=== PATIENT | female | born 1985 | race Caucasian/White ===

== ENCOUNTER → 2018-01-09 08:32 | Outpatient (CLI) | payer OTHER, SELFPAY ==
--- NOTE | 2018-01-09 08:37 | ECHOD_ITS ---
Reason For Study: MVP Procedure This was a 2D Doppler, Color Flow transthoracic echocardiogram. Exam performed in department. Left Ventricle Normal LV size. Left ventricular systolic function is normal. The estimated ejection fraction is 55 %. No evidence for diastolic dysfunction. No regional wall motion abnormalities noted. Right Ventricle Normal RV size. Normal systolic function. Atria Normal left atrium. Normal right atrium. Mitral Valve Anterior leaflet diffuse mitral valve thickening. S/p mitral valve repair. Trivial mitral valve insufficiency. Tricuspid Valve Normal tricuspid valve. Mild (1+) tricuspid valve insufficiency. Pulmonary artery systolic pressure is 20 mmHg. Aortic Valve The aortic valve is not well visualized. Pulmonic Valve Normal pulmonic valve. Great Vessels Normal aortic root. The pulmonary artery is normal size. Normal inferior vena cava. Pericardium/Pleural No pericardial effusion. MMode/2D Measurements & Calculations LVIDd: 3.8 cm IVSd: 0.53 cm Ao root diam: 2.4 cm LVIDs: 2.7 cm LVPWd: 0.65 cm RVDd: 3.7 cm FS: 28.7 % LAV(MOD-bp): 22.0 ml LA A4 area: 11.7 cm2 RA A4 area: 13.8 cm2 LAV(MOD-bp) Indexed: 12.6 ml/m2 LAV(MOD-sp2): 16.4 ml LAV(MOD-sp4): 22.7 ml Time Measurements MV dec time: 0.29 sec Doppler Measurements & Calculations MV E max edenilson: 112.3 cm/sec Lat Peak E' Edenilson: 13.1 cm/sec Med Peak E' Edenilson: 9.6 cm/sec MV A max edenilson: 57.8 cm/sec E/E' lat: 8.6 E/E' med: 11.8 MV E/A: 1.9 Ao V2 max: 120.2 cm/sec LV V1 max: 102.4 cm/sec TR max edenilson: 210.7 cm/sec Ao max P.8 mmHg LV V1 max P.2 mmHg TR max P.8 mmHg Interpretation Summary Normal LV size. Left ventricular systolic function is normal. The estimated ejection fraction is 55 %. No evidence for diastolic dysfunction. S/p mitral valve repair Trivial mitral valve insufficiency. Ordering Physician: NGOC FOWLER Referring Physician: DOCTOR, OUT OF TOWN Performed By: Ayesha Paulino, ALTAFCS, RVT
--- NOTE | 2018-01-09 11:29 | CPS ---
Order was for pre and post only. Patient states she has had complete PFT's before but not done at [facility]. Attempted to call Ordering physician office to clarify order, just in case they wanted a complete study. Spoke to an RN that was not sure and sent my call to the person responsible for scheduling in their office which ended in a voicemail box.
[2018-01-09 12:49] LABS: Absolute Lymphocyte Count 2.67 X10^3/ul (0.83-4.51); Absolute Neutrophil Count 4.2 X10^3/uL (2.0-7.7); Basophil# 0.04 X10^3/uL; Basophil% 0.5 % (0-1); Eosinophil# 0.15 X10^3/uL; Eosinophils% 1.9 % (0-5); Hematocrit 50.4 % (37-47); Hemoglobin 16.6 g/dl (12.0-15.0); Lymphocyte # 2.67 X10^3/ul (4.0); Lymphocyte % 34.7 % (19-41); Mean Corp Hgb Conc 32.9 g/gl (32-36); Mean Corpuscular Hgb 30.4 pg (27.0-32.0); Mean Corpuscular Volume 92.3 fL (81-99); Mean Platelet Vol. 9.7 fl (6.2-12.0); Monocyte# 0.67 X10^3/uL; Monocyte% 8.7 % (0-10); Neutrophil # 4.16 X10^3/uL (2.7-7.7); Neutrophil % 54.1 % (47-70); Platelet Count 298 K/mm3 (150-450); RBC Distribution Width CV 13.2 % (11.6-14.6); RBC Distribution Width SD 44.1 fl (35.1-43.9); Red Blood Count 5.46 M/mm3 (4.2-5.4); White Blood Count 7.7 K/mm3 (4.4-11.0)
[2018-01-09 12:50] LABS: POSITIVE COUNT NO; POSITIVE DIFFERENTIAL NO; POSITIVE MORPHOLOGY NO
[2018-01-09 13:14] LABS: T4 Free Direct 1.03 ng/dL (0.76-1.46); Thyroid Stim Hormone (TSH) 0.88 uIU/mL (0.358-3.74)
--- NOTE | 2018-01-10 07:36 | SPIR ---
Spirometry PFT Testing Spirometry PFT Testing: INTRODUCTION: The patient is a 32-year-old female that presents for spirometry secondary to a diagnosis of mitral valve prolapse. Respiratory therapy reports good patient effort. Bronchodilators were used during testing. INTERPRETATION: Forced expiration spirometry demonstrates no evidence of a large airways obstructive ventilatory defect. There was no significant response to aerosolized bronchodilators, based upon strict ATS criteria. Spirograms are of good quality and plateau normally. The respiratory flow volume loop appears normal. IMPRESSION: Normal spirometry.
[2018-01-10 08:27] LABS: T3 Total - Triiodothyronine 1.04 ng/mL (0.6-1.81)
== END ==
DX: R53.82 Chronic fatigue, unspecified (principal); Z13.29 Encounter for screening for other suspected endocrine disorder; R01.1 Cardiac murmur, unspecified
CPT/HCPCS: 36415; 84439; 84443; 84480; 85025; 93306; 94060

== ENCOUNTER → 2018-02-04 15:07 | Outpatient (CLI) | payer OTHER, SELFPAY | DX: R05 Cough (principal) | CPT/HCPCS: 71046 ==

== ENCOUNTER → 2018-08-26 17:31 | Outpatient (CLI) | payer OTHER, SELFPAY ==
--- NOTE | 2018-08-26 17:40 | RAD_ITS ---
STUDY: X-RAY CHEST REASON FOR EXAM: Female, 33 years old. Cough, wheezing. Prior history of chest surgery. TECHNIQUE: PA and lateral chest COMPARISON: None. FINDINGS: Median sternotomy, 4 small fixation screws to the right and left external, possibly associated with the ribs. Stable. Valve annuloplasty. The lungs are somewhat symmetrically hyperlucent which may merely reflect good inspiratory effort. In the setting of asthma consider also air trapping. Correlate also for any history of smoking. Normal cardiomediastinal silhouette, zoe and pleural margins. No acute osseous or upper abdominal process. Scoliosis. RAD/Chest PA and Lateral IMPRESSION: No acute cardiopulmonary process. Electronically Signed: Jerrell Vincent MD at 15:48 EST Tel , Service support ,
== END ==
PROVIDERS: Referring Provider Family Medicine; Visit Provider Family Medicine
DX: R05 Cough (principal)
CPT/HCPCS: 71046

== ENCOUNTER → 2018-09-18 10:45 | Outpatient (REF) | payer OTHER, SELFPAY | LOC: CVS 10:45 | PROVIDERS: Family Provider Family Medicine; PCP Family Medicine; Referring Provider Family Medicine; Visit Provider Family Medicine | DX: R00.2 Palpitations (principal); Z86.79 Personal history of other diseases of the circulatory system | CPT/HCPCS: 93270 ==

== ENCOUNTER → 2018-12-03 | Outpatient (CLI) | payer OTHER, SELFPAY ==
[2018-12-03 10:25] VITALS: BMI 20.5
[2018-12-03 11:42] LABS: Absolute Lymphocyte Count 1.51 X10^3/ul (0.83-4.51); Absolute Neutrophil Count 3.7 X10^3/uL (2.0-7.7); Basophil# 0.03 X10^3/uL; Basophil% 0.5 % (0-1); Eosinophil# 0.03 X10^3/uL; Eosinophils% 0.5 % (0-5); Hematocrit 47.5 % (37-47); Hemoglobin 15.8 g/dl (12.0-15.0); Lymphocyte # 1.51 X10^3/ul (4.0); Mean Corp Hgb Conc 33.3 g/gl (32-36); Mean Corpuscular Hgb 29.4 pg (27.0-32.0); Mean Corpuscular Volume 88.5 fL (81-99); Mean Platelet Vol. 9.1 fl (6.2-12.0); Monocyte# 0.53 X10^3/uL; Monocyte% 9.1 % (0-10); Neutrophil % 63.7 % (47-70); POSITIVE COUNT NO; POSITIVE DIFFERENTIAL NO; POSITIVE MORPHOLOGY NO; Platelet Count 306 K/mm3 (150-450); RBC Distribution Width CV 12.9 % (11.6-14.6); Red Blood Count 5.37 M/mm3 (4.2-5.4); White Blood Count 5.8 K/mm3 (4.4-11.0)
[2018-12-08 14:06] LABS: Aspirgillus flavus Negative (Neg:<1:1); Aspirgillus fumigatus Negative (Neg:<1:1); Aspirgillus niger Negative (Neg:<1:1)
[2018-12-09 04:32] LABS: Alternaria tenuis <0.10 kU/L (Class 0); Ash, White <0.10 kU/L (Class 0); Aspergillus fumigatus <0.10 kU/L (Class 0); Bermuda Grass <0.10 kU/L (Class 0); Birch <0.10 kU/L (Class 0); Black Walnut <0.10 kU/L (Class 0); Cat Hair / Dander,Stand <0.10 kU/L (Class 0); Cedar, Mountain <0.10 kU/L (Class 0); Cladosporium herbarum <0.10 kU/L (Class 0); Cockroach, American <0.10 kU/L (Class 0); Cottonwood <0.10 kU/L (Class 0); D farinae Mite <0.10 kU/L (Class 0); D pteronyssinus <0.10 kU/L (Class 0); Dog Epithelia <0.10 kU/L (Class 0); Elm, American White <0.10 kU/L (Class 0); Immunoglobulin E 45 IU/mL (6-495); Maple/Box Elder <0.10 kU/L (Class 0); Mulberry, White <0.10 kU/L (Class 0); Oak, White <0.10 kU/L (Class 0); Pecan <0.10 kU/L (Class 0); Penicillium Notatum <0.10 kU/L (Class 0); Pigweed, Rough <0.10 kU/L (Class 0); Ragweed, Short/Common <0.10 kU/L (Class 0); Russian Thistle <0.10 kU/L (Class 0); Sheep Sorrel <0.10 kU/L (Class 0); Sycamore, American <0.10 kU/L (Class 0); Timothy Grass <0.10 kU/L (Class 0)
[2018-12-09 15:31] LABS: Mouse Urine <0.10 kU/L (Class 0)
[2018-12-09 16:07] LABS: Immunoglobulin E 51 IU/mL (6-495)
== END | disposition home or self-care (01) ==
LOC: LAB 11:23
PROVIDERS: Family Provider Family Medicine; PCP Family Medicine; Referring Provider Internal Medicine Critical Care Medicine; Visit Provider Internal Medicine Critical Care Medicine
DX: J45.909 Unspecified asthma, uncomplicated (principal)
CPT/HCPCS: 36415; 82785; 85025; 86003; 86606

== ENCOUNTER → 2018-12-12 | Outpatient (CLI) | payer OTHER, SELFPAY ==
[2018-12-03 10:25] VITALS: BMI 20.5
[2018-12-12 11:21] VITALS: PULSE 100; PULSE 104; PULSE 106; PULSE 74; PULSE 76; PULSE 94; PULSE 99; O2SAT 100; O2SAT 95; O2SAT 96; O2SAT 98; O2SAT 99
--- NOTE | 2018-12-13 08:08 | PCM.PSN.6M ---
PSN 6 Minute Walk Test - 6 Minute Walk Test 6 Minute Walk Test: 6 Minute Walk Test PSN:6-Minute Walk Test Start: 12/12/18 11:21 Freq: Status: Active Protocol: RESP.6MINW Document 12/12/18 11:21 DARNELL (Rec: 12/12/18 11:23 DARNELL [id number]) 6 Minute Walk Test Date Performed 12/12/18 Time Performed 11:00 Height 5 ft 10 in Weight: 140 lb Weight in Pounds 140.[address]: Beck Beyer Assistive device used: None Pre-test Oxygen Delivery Method Room Air Pulse Ox (%) 99 Pulse Rate (60-100 beats/min) 74 Dyspnea Carol Scale (0-10) 0 Exertion Carol Scale (6-20) 6 1st minute Oxygen Delivery Method Room Air Pulse Ox (%) 99 Pulse Rate (60-100 beats/min) 94 2nd minute Oxygen Delivery Method Room Air Pulse Ox (%) 98 Pulse Rate (60-100 beats/min) 100 3rd minute Oxygen Delivery Method Room Air Pulse Ox (%) 96 Pulse Rate (60-100 beats/min) 99 4th minute Oxygen Delivery Method Room Air Pulse Ox (%) 95 Pulse Rate (60-100 beats/min) 99 5th minute Oxygen Delivery Method Room Air Pulse Ox (%) 98 Pulse Rate (60-100 beats/min) 104 H 6th minute Oxygen Delivery Method Room Air Pulse Ox (%) 100 Pulse Rate (60-100 beats/min) 106 H Dyspnea Carol Scale (0-10) 3 Exertion Carol Scale (6-20) 13 Post-test Oxygen Delivery Method Room Air Pulse Ox (%) 99 Pulse Rate (60-100 beats/min) 76 Full Laps Walked 23 Partial Lap, Number of Tiles Walked 22 Total Distance Walked (ft) 1379 - Interpretation Interpretation: The patient ambulated 1379 feet over the course of 6 minutes beginning on room air without assistive devices or breaks. Pretesting oxygen saturation was noted to be 99% on room air. With ambulation, the dominique oxygen saturation was 95%. There was no significant exertional oxygen desaturation. - Recommendations Recommendations: There is no indication for the use of supplemental oxygen at this time.
== END | disposition home or self-care (01) ==
LOC: PSN 10:47
PROVIDERS: Family Provider Family Medicine; PCP Family Medicine; Referring Provider Internal Medicine Critical Care Medicine; Visit Provider Internal Medicine Critical Care Medicine
DX: D75.1 Secondary polycythemia (principal); J45.909 Unspecified asthma, uncomplicated
CPT/HCPCS: 94618

== ENCOUNTER → 2018-12-19 | Outpatient (CLI) | payer OTHER, SELFPAY ==
[2018-12-03 10:25] VITALS: BMI 20.5
--- NOTE | 2018-12-19 10:36 | PFTCOMP_ITS ---
COMPLETE PULMONARY FUNCTION TEST INTERPRETATION Brief HPI: Patient is a 33 year old female, currently under the care of Dr. Beyer, who presents to [facility] for complete pulmonary function tests secondary to diagnosis of asthma. Respiratory therapist reports good effort and reproducible results. Interpretation: Forced expiration spirometry shows no large airways obstructive ventilatory defect with an FEV1 of 77% predicted. There is no significant bronchodilator response by strict ATS criteria. Spirograms are of good quality and plateau normally. The respiratory flow volume loop shows a normal pattern. Lung volumes by body plethysmography show a reduced total lung capacity at 5.13 L, 81% predicted. All other lung volumes are reduced symmetrically. Diffusion capacity by carbon monoxide is normal at 110% predicted. The airway resistance is normal. Compared to previous pulmonary function tests from 01/09/2018, there is been no significant change in spirometry. Impression: Mild restrictive ventilatory defect with preserved diffusion capacity, in a pattern consistent with musculoskeletal limitation.
== END | disposition home or self-care (01) ==
LOC: PSN 07:48
PROVIDERS: Family Provider Family Medicine; PCP Family Medicine; Referring Provider Internal Medicine Critical Care Medicine; Visit Provider Internal Medicine Critical Care Medicine
DX: J45.909 Unspecified asthma, uncomplicated (principal)
CPT/HCPCS: 94060; 94726; 94729

== ENCOUNTER 2019-01-20 19:33 | Emergency (ER) | payer OTHER, SELFPAY ==
[2018-12-03 10:25] VITALS: BMI 20.5
[2019-01-20 19:35] VITALS: BP 121/74; PULSE 90; RESP 18; TEMP 36.6; O2SAT 100; BMI 19.8
--- NOTE | 2019-01-20 20:25 | RAD_ITS ---
STUDY: X-RAY - LEFT ANKLE REASON FOR EXAM: Female, 34 years old. Fall TECHNIQUE: 3 view(s) of the ankle. COMPARISON: None. FINDINGS: Prominent soft tissue swelling is present over the lateral malleolus. There is a small osseous body at the distal aspect of the fibula. The remaining bones are unremarkable. Chronic appearing osseous body is present at the medial tibiotalar joint, consistent with remote trauma or degenerative change. There are no radiodense foreign bodies. RAD/Ankle min 3 Views IMPRESSION: Prominent soft tissue swelling over the lateral malleolus, with small osseous body just distal to the fibula, which may represent avulsion. Consider MRI for further assessment. Electronically Signed: David Shannon, at 20:44 EDT Tel , Service support ,
--- NOTE | 2019-01-20 21:16 | ED.DEP ---
ED Disposition - Plan for ED Patient: Instructions: ANKLE FRACTURE (Distal Fibula), closed Referrals: Jerrell Mosquera MD [Primary Care Provider] - Rickie Ruggiero DO [STAFF PHYSICIAN] -
--- NOTE | 2019-01-20 21:19 | ED.VISSUMM ---
- ER Visit Summary Date of Service: 01/20/19 Chief Complaint: Left ankle injury History of Present Illness: The patient is a 34 F presenting with left ankle injury. Patient states she was at the movies. She was walking down the steps. She missed a step and fell. She was able to ambulate after the fall. She did not hit her head or lose consciousness. She complains of left ankle pain. She denies other injuries. Physical Examination: Vitals are stable. Patient is afebrile. Alert no acute distress. HEENT exam is unremarkable. Neck is nontender Lungs are clear and equal bilaterally. Heart is regular rate and rhythm. Extremities left lateral ankle swelling and tenderness. No proximal fibula tenderness. No fifth metatarsal tenderness. No Achilles tendon tenderness. Skin is warm and dry. No focal neurologic deficit. Remainder of exam is unremarkable. Emergency Department Course and Treatment: Left ankle x-ray shows prominent soft tissue swelling over the lateral malleolus, with small osseous body just distal to the fibula, which may represent avulsion. Patient is advised to ice and elevate. She is given a boot orthosis and crutches. Advised to follow-up with orthopedics. Advised return to the ED for worsening complaints. Disposition: Discharge home Impression: Left ankle injury suspect avulsion fracture This note was generated with Divshot dictation software. It may contain incorrect words, spelling, and punctuation that were not noted in review of the chart prior to signing ED Disposition - Plan for ED Patient: Instructions: ANKLE FRACTURE (Distal Fibula), closed Referrals: Rickie Ruggiero DO [STAFF PHYSICIAN] - Jerrell Mosquera MD [Primary Care Provider] -
[2019-01-20 21:48] VITALS: RESP 14
== END 2019-01-20 21:48 | disposition home or self-care (01) ==
LOC: ED 20:41
PROVIDERS: Emergency Provider Emergency Medicine; Family Provider Family Medicine; PCP Family Medicine
DX: S99.912A Unspecified injury of left ankle, initial encounter (principal); W10.9XXA Fall (on) (from) unspecified stairs and steps, initial encounter; Y93.01 Activity, walking, marching and hiking; Y92.9 Unspecified place or not applicable; J45.909 Unspecified asthma, uncomplicated
CPT/HCPCS: 73610; 99284

== ENCOUNTER → 2019-03-04 06:42 | Outpatient (CLI) | payer OTHER, SELFPAY ==
--- NOTE | 2019-03-05 13:38 | BRONCHALL ---
Bronchoprovocation Challenge - Bronchoprovocation Challenge Bronchoprovocation Challenge: INTRODUCTION: The patient is a 34-year-old female that presents for a methacholine challenge secondary to a diagnosis of asthma. The respiratory therapist reported good patient effort and reproducible results. INTERPRETATION: Baseline spirometry did not show any large airways obstructive ventilatory defect and preserved airflow throughout. The patient was given progressively increasing doses of methacholine in a standardized fashion. At no point during testing did the patient's FEV1 drop to the 20% threshold needed to define bronchial hyperresponsiveness. IMPRESSION: Negative methacholine challenge.
== END ==
PROVIDERS: Family Provider Family Medicine; PCP Family Medicine; Referring Provider Internal Medicine Critical Care Medicine; Visit Provider Internal Medicine Critical Care Medicine
DX: J45.909 Unspecified asthma, uncomplicated (principal)
CPT/HCPCS: 94070; 95070; J3490; J7674

== ENCOUNTER → 2019-03-09 15:29 | Outpatient (CLI) | payer OTHER, SELFPAY ==
--- NOTE | 2019-03-09 15:31 | RAD_ITS ---
STUDY: X-RAY - LEFT ANKLE REASON FOR EXAM: Female, 34 years old. Injury. Pain. TECHNIQUE: 3 view(s) of the ankle. COMPARISON: 12/21/2018 FINDINGS: There is a stable subcentimeter linear osseous fragment adjacent to the distal fibula which may represent an avulsion fracture. There is mild adjacent soft tissue swelling noted which is decreased when compared with the prior exam. There is a stable well-corticated osseous density adjacent to the medial malleolus, consistent with prior trauma. There is no acute fracture or dislocation. RAD/Ankle min 3 Views IMPRESSION: Stable subcentimeter linear osseous fragment adjacent to the distal fibula which may represent an avulsion fracture. Mild adjacent soft tissue swelling noted which is decreased when compared with the prior exam. Well-corticated osseous density adjacent to the medial malleolus, consistent with prior trauma. No acute fracture or dislocation. Electronically Signed: Percy Lambert, at 22:23 EDT Tel , Service support ,
== END ==
PROVIDERS: Family Provider Family Medicine; PCP Family Medicine; Referring Provider Orthopaedic Surgery; Visit Provider Orthopaedic Surgery
DX: S82.62XA Displaced fracture of lateral malleolus of left fibula, initial encounter for closed fracture (principal)
CPT/HCPCS: 73610

== ENCOUNTER → 2019-04-06 12:51 | Outpatient (CLI) | payer OTHER, SELFPAY ==
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
--- NOTE | 2019-04-06 13:00 | RAD_ITS ---
STUDY: SWALLOWING STUDY REASON FOR EXAM: Female, 34 years old. Dysphagia. TECHNIQUE: The examination was performed with Speech Pathology in attendance. Under fluoroscopic observation, the patient ingested thin barium, thick barium, barium pudding, and barium coated cracker. FLUOROSCOPY TIME: 2:00 minutes/seconds. 1740 fluoroscopic images were obtained. RADIOLOGIST INVOLVEMENT: Radiologist was present and providing direct supervision. COMPARISON: None. FINDINGS: The following was observed during swallowing of the various mixtures of barium: Thin Barium: There was no evidence of aspiration or laryngeal penetration. Barium Pudding: There was no evidence of aspiration or laryngeal penetration. Barium Coated Cracker: There was no evidence of aspiration or laryngeal penetration. RAD/Swallowing Function w/Video IMPRESSION: Normal tailored barium swallow study. No evidence of increased risk for aspiration. The swallow study findings were discussed with the patient by the speech pathologist at the conclusion of the examination. Please see speech pathology report for more information and recommendations. Electronically Signed: Rio De La Rosa, at 13:44 EDT , Service support ,
== END ==
PROVIDERS: Family Provider Family Medicine; PCP Family Medicine; Referring Provider Nurse Practitioner Acute Care; Visit Provider Nurse Practitioner Acute Care
DX: R13.10 Dysphagia, unspecified (principal)
CPT/HCPCS: 74230; 92611

== ENCOUNTER 2019-06-04 15:00 | Outpatient (RCR) | payer OTHER, SELFPAY ==
--- NOTE | 2019-02-17 11:55 | HP.PTEVAL_ITS ---
Patient's Visit Information BEVERLY HUA is a 34 year old F referred to Physical Therapy by Rickie Ruggiero DO with a diagnosis of L ankle fx. Date of Evaluation: 02/17/19 Physical Therapist: Ziyad Dwyer DPT - Visit Plan Frequency: 2x /Week Duration: 4-6 Weeks Plan: Start with ROM and strengthening of L ankle. Progress WBing tolerance progressing to FWB in boot in 2 weeks in order to return to work without limitations. Progress proprioception exercises in 2 weeks. - Subjective Findings: Pt. is here today for her initial evaluation with diagnosis of L ankle fracture. Pt. reports falls down a few steps a the movie theater. January 20, 2019. Pt. is now 4 weeks out of initial injury. Pt. is allowed is now PWB in boot. Pt. is allowed to progress to FWBing in boot in following 2 weeks. Pt. reports no pain with walking currently. Pt. works at a [employer] and plans to return to work on Mar 02. Pt. reports being compliant with WBing at home. She has been working on ROM at home. Pt is hopeful to increase her tolerance to walking and get back to all recreational and work related activities without limitations. - Pain L ankle Pain Intensity (Out of 10): 1 Pain Intensity Range: 0, 2 - Objective POSTURE: Pt. has good posture in stance. She is able to stand with proper partial WBing. Pt. reports no pain in stance. PALPATION: Pt. has tenderness at distal fibular head. pt. has slight soreness at ATFL. NEURO: normal throughout. ROM: DF- 8deg, PF 48deg, INV 6deg, EVR 4deg. PROM- DF 10deg, PF 50deg, INV 8deg, EVR 8deg. MMT: DF 4/5, PF 4+/5, INV 4/5 increase NW, EVR 4/5 increase NW. GAIT: PT. ambulates with good gait pattern with partial WBing and use of crutches. - Goals Goal 1:: Pt. to be I with HEP. Goal Time Frame: 4-6 Weeks Goal 2:: Pt. to have increased ROM of L ankle symmetrical to R side. Goal Time Frame: 4-6 Weeks Goal 3:: Pt. to have increased MMT of musculature at L ankle by 1/2 grade throughout. Goal Time Frame: 4-6 Weeks Goal 4:: Pt. to ambulate with FWB without use of AD in two weeks. Goal Time Frame: 4-6 Weeks Goal 5:: Pt. return to work without increase in symptoms. Goal Time Frame: 4-6 Weeks - Rehabilitation Potential Physical Therapy Diagnosis: Pt. has signs and symptoms consistent with L ankle Fx and subsequent hypomobility, weakness, increased pain, and difficulty with walking. Rehabilitation Potential: Excellent - Anticipated Interventions Patient/Client Instruction: Educate patient on: Condition, Plan of Care, Risk Factors, Benefits of Fitness Program For the Purpose of:: To foster healthy habits, To improve decision making, To facilitate caregiver knowledge, To improve self management, To prevent re- injury, To improve ability to perform tasks related to life management, To improve tolerance to ADL's Therapeutic Exercise to Include: Strength training, Power training, Balance training, Agility training, Postural training, Flexibilty training, Gait and locomotor training, Passive ROM, Active ROM For the Purpose of:: To decrease pain, To decrease swelling/inflammation, To increase ROM, To improve nutrient delivery to tissue, To increase oxygenation perfusion, To improve muscle performance and motor function, To improve ability to perform ADL's, To improve ability of physical actions for home/community/work/leisure, To improve gait and locomotor functions, To improve health of tissue, To increase flexibility/ROM, To improve endurance, To improve balance IF ES: Yes Cryotherapy (ice pack, ice massage): Yes Vasopneumatic device: Yes For the Purpose of:: To decrease pain, To decrease swelling/inflammation, To increase ROM Thank you for the opportunity to evaluate your patient. For Medicare and Medicare HMO plans, please review the plan of care and approve it. It will need to be FAXED BACK to us at [phone] for Medicare purposes. For Medicare only, by signing this I certify the plan of care. Please let me know if there are questions or concerns regarding this plan of care. Physician Signature: Date:
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
== END 2019-06-04 19:00 | disposition home or self-care (01) ==
LOC: SP 15:00
PROVIDERS: Family Provider Family Medicine; PCP Family Medicine; Referring Provider Internal Medicine Critical Care Medicine; Visit Provider Orthopaedic Surgery
DX: S82.62XD Displaced fracture of lateral malleolus of left fibula, subsequent encounter for closed fracture with routine healing (principal); J38.3 Other diseases of vocal cords
CPT/HCPCS: 92507; 92523; 92610; 97110; 97161

== ENCOUNTER → 2019-08-27 16:17 | Outpatient (CLI) | payer OTHER, SELFPAY ==
[2019-08-27 17:07] LABS: ALB/GLOB Ratio 1.2 RATIO (0.9-2.4); AST(SGOT) 15 U/L (15-37); Alanine Aminotransfer ALT/SGPT 18 U/L (13-56); Albumin, Serum 4.2 g/dL (3.2-5.0); Alkaline Phosphatase 71 U/L (45-117); Anion Gap 5 (5-15); BUN 12 mg/dL (7-18); BUN/Creat Ratio 16.1 RATIO (10-20); Chloride 111 mmol/L (98-107); Creatinine, Serum 0.75 mg/dL (0.55-1.02); EST Glomerular Filtration Rate 94 mL/min (>60); Est Glom Filt Rate - Afr Amer 114 mL/min (>60); Globulin 3.4 g/dL (2.2-4.2); Glucose 90 mg/dL (74-106); Potassium 4.7 mmol/L (3.5-5.1); Protein, Total 7.6 g/dL (6.4-8.2); Sodium Level 143 mmol/L (136-145)
[2019-08-27 17:08] LABS: Absolute Lymphocyte Count 2.01 X10^3/uL (0.83-4.51); Absolute Neutrophil Count 5.1 X10^3/uL (2.0-7.7); Basophil# 0.06 X10^3/uL; Basophil% 0.7 % (0-1); Eosinophil# 0.12 X10^3/uL; Eosinophils% 1.5 % (0-5); Hemoglobin 14.9 g/dL (12.0-15.0); Lymphocyte # 2.01 X10^3/ul (4.0); Lymphocyte % 24.9 % (19-41); Mean Corp Hgb Conc 32.4 g/dL (32-36); Mean Corpuscular Hgb 29.5 pg (27.0-32.0); Mean Corpuscular Volume 91.1 fL (81-99); Mean Platelet Vol. 9.6 fl (6.2-12.0); Monocyte# 0.72 X10^3/uL; Monocyte% 8.9 % (0-10); NRBC Flagged by Analyzer 0 % (0-5); Neutrophil # 5.13 X10^3/uL (2.7-7.7); Neutrophil % 63.8 % (47-70); Platelet Count 307 K/mm3 (150-450); RBC Distribution Width CV 12.9 % (11.6-14.6); RBC Distribution Width SD 42.4 fl (35.1-43.9); Red Blood Count 5.05 M/mm3 (4.2-5.4); White Blood Count 8.1 K/mm3 (4.4-11.0)
== END ==
PROVIDERS: PCP Internal Medicine; Referring Provider Internal Medicine; Visit Provider Internal Medicine
DX: K21.9 Gastro-esophageal reflux disease without esophagitis (principal)
CPT/HCPCS: 36415; 80053; 85025

== ENCOUNTER → 2019-08-31 17:46 | Outpatient (CLI) | payer OTHER, SELFPAY ==
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
== END ==
PROVIDERS: PCP Internal Medicine; Visit Provider Internal Medicine
DX: M25.572 Pain in left ankle and joints of left foot (principal)
CPT/HCPCS: 73600

== ENCOUNTER → 2019-09-18 10:51 | Outpatient (CLI) | payer OTHER, SELFPAY ==
--- NOTE | 2019-09-18 10:53 | ECHOD_ITS ---
Reason For Study: VALVE REPLACEMENT EVAL Procedure This was a 2D Doppler, Color Flow transthoracic echocardiogram. Exam performed in department. Left Ventricle Normal size and thickness. The estimated ejection fraction is 55 %. Septal motion consistent with IVCD. No regional wall motion abnormalities noted. Right Ventricle Normal size and thickness. Normal systolic function. Atria Normal left atrium. Normal right atrium. Normal atrial septum. Mitral Valve Anterior leaflet diffuse mitral valve thickening. Trivial mitral valve insufficiency. Status post mitral valve repair. Tricuspid Valve Normal tricuspid valve. Trivial tricuspid valve insufficiency. Right ventricular systolic pressure estimated to be 25 mmHg. Aortic Valve Normal aortic valve. Trisinus/trileaflet aortic valve. Pulmonic Valve The pulmonic valve is not well visualized. Great Vessels Normal aortic root. Normal arch. Normal inferior vena cava. Inferior vena cava collapse with sniff. Pericardium/Pleural No pericardial effusion. MMode/2D Measurements & Calculations LVIDd: 3.6 cm IVSd: 0.77 cm Ao root diam: 2.7 cm LVIDs: 2.4 cm LVPWd: 0.69 cm RVDd: 2.8 cm FS: 32.7 % LAV(MOD-bp): 18.6 ml LA A4 area: 11.0 cm2 LA dimension(2D): 2.7 cm LAV(MOD-bp) Indexed: 10.5 ml/m2 LAV(MOD-sp2): 16.0 ml LAV(MOD-sp4): 21.2 ml RA A4 area: 13.8 cm2 Time Measurements MV dec time: 0.21 sec Doppler Measurements & Calculations MV E max edenilson: 169.0 cm/sec Lat Peak E' Edenilson: 11.1 cm/sec Med Peak E' Edenilson: 10.8 cm/sec MV A max edenilson: 77.2 cm/sec E/E' lat: 15.2 E/E' med: 15.7 MV E/A: 2.2 MV V2 max: 156.6 cm/sec MV P1/2t max edenilson: 153.7 cm/sec Ao V2 max: 114.7 cm/sec MV max P.8 mmHg MV P1/2t: 82.2 msec Ao max P.3 mmHg MV V2 mean: 79.0 cm/sec MV dec slope: 547.9 cm/sec2 Ao V2 mean: 83.5 cm/sec MV mean P.0 mmHg Ao mean P.0 mmHg MV V2 VTI: 35.5 cm MVA(P1/2t): 2.7 cm2 Ao V2 VTI: 25.5 cm LV V1 max: 81.3 cm/sec PA V2 max: 86.5 cm/sec TR max edenilson: 215.1 cm/sec LV V1 max P.6 mmHg TR max P.5 mmHg Interpretation Summary The estimated ejection fraction is 55 %. Status post mitral valve repair. Trivial mitral valve insufficiency. Trivial tricuspid valve insufficiency. Right ventricular systolic pressure estimated to be 25 mmHg. Compared to echo report dated 01/09/2018, no appreciable chages noted. Ordering Physician: Ravi Medellin Referring Physician: Ezra Arenas Performed By: Montserrat Adams RDCS, RVT
== END ==
PROVIDERS: PCP Internal Medicine; Referring Provider Internal Medicine Cardiovascular Disease; Visit Provider Internal Medicine Cardiovascular Disease
DX: Z98.890 Other specified postprocedural states (principal)
CPT/HCPCS: 93306

== ENCOUNTER → 2020-03-23 15:03 | Outpatient (CLI) | payer OTHER, SELFPAY ==
[2020-03-23 14:12] VITALS: BMI 20.2
[2020-03-23 15:47] LABS: Erythrocyte Sedimentation Rate 3 mm/hr (0-20)
[2020-03-23 16:14] LABS: CRP < 2.90 mg/L (0.0-3.0); Rheumatoid Factor < 10.0 IU/mL (<15)
[2020-03-25 15:17] LABS: ANTINUCLEAR ANTIBODIES DIRECT Negative (Negative)
[2020-03-26 03:07] LABS: Cytoplasmic Ab (C-ANCA) <1:20 titer (Neg:<1:20)
[2020-03-26 06:16] LABS: CCP IgG Antibodies 4 units (0-19); Perinuclear Ab (P-ANCA) <1:20 titer (Neg:<1:20)
== END ==
PROVIDERS: PCP Internal Medicine; Referring Provider Nurse Practitioner Acute Care; Visit Provider Nurse Practitioner Acute Care
DX: M35.9 Systemic involvement of connective tissue, unspecified (principal)
CPT/HCPCS: 36415; 85652; 86038; 86140; 86200; 86225; 86235; 86256; 86431

== ENCOUNTER → 2020-04-07 17:27 | Outpatient (CLI) | payer OTHER, SELFPAY ==
[2020-03-29 15:02] VITALS: BMI 18.3
== END ==
PROVIDERS: PCP Internal Medicine; Referring Provider Internal Medicine Cardiovascular Disease; Visit Provider Internal Medicine Cardiovascular Disease
DX: R06.02 Shortness of breath (principal); Z98.890 Other specified postprocedural states
CPT/HCPCS: 87635; U0003

== ENCOUNTER 2020-04-12 09:47 | Outpatient (CLI) | payer OTHER, SELFPAY ==
[2020-03-29 15:02] VITALS: BMI 18.3
--- NOTE | 2020-04-12 09:47 | ECHOTEE_ITS ---
Reason For Study: DYSPNEA/SOB Medication SATHYA probe 6VT-D (SN [id number]) passed with minimal difficulty. No complications were noted. Cetacaine Topical Burtrum given X3 orally. Versed 2 mg given slow IVP. Fentanyl 100 mcg given slow IVP. Performed a rapid injection of agitated mix of 9 cc saline and 1cc air to assess for atrial septal defect. Left Ventricle Normal LV size. Left ventricular systolic function is normal. The estimated ejection fraction is 60 %. No regional wall motion abnormalities noted. Right Ventricle Normal RV size. Normal systolic function. Atria No doppler evidence for ASD. Bubble contrast study negative for right to left interatrial shunt. Normal left atrium. There is no sponatenous contrast in the left atrium. No thrombus is detected in the left atrial appendage. Normal right atrium. There is no sponatenous contrast in the right atrium. No RA/appendage thrombus identified. Mitral Valve There is no mitral annular calcification. Mild diffuse mitral valve thickening. An annuloplasty ring is noted in the mitral position. Mild to moderate (1-2) transvalvular insufficiency of the mitral valve. Tricuspid Valve Normal tricuspid valve. Trivial tricuspid valve insufficiency. Aortic Valve Trisinus/trileaflet aortic valve. Normal aortic valve. Pulmonic Valve Normal pulmonic valve. Vessels Normal-appearing thoracic aorta. Pericardium No pericardial effusion. Interpretation Summary Left ventricular systolic function is normal. The estimated ejection fraction is 60 %. There is no sponatenous contrast in the left atrium. No thrombus is detected in the left atrial appendage. An annuloplasty ring is noted in the mitral position. Mild diffuse mitral valve thickening. Mild to moderate (1-2) transvalvular insufficiency of the mitral valve. Trivial tricuspid valve insufficiency. Bubble contrast study negative for right to left interatrial shunt. Ordering Physician: Miri Galdamez/Gene Terrell Referring Physician: EFEWONGBE OLEGHE Performed By: Lexi Lane RDCS
== END 2020-04-12 12:30 | disposition home or self-care (01) ==
LOC: CVS 09:47
PROVIDERS: PCP Internal Medicine; Referring Provider Physician Assistant Medical; Visit Provider Physician Assistant Medical
DX: R06.00 Dyspnea, unspecified (principal); R06.02 Shortness of breath; Z98.890 Other specified postprocedural states
CPT/HCPCS: 93312; 93320; 93325; J7040; A4216

== ENCOUNTER 2020-04-14 09:55 | Emergency (ER) | payer OTHER, SELFPAY ==
[2020-03-29 15:02] VITALS: BMI 18.3
[2020-04-14] VITALS (9 sets, daily range): BP systolic 90–111; BP diastolic 62–82; PULSE 74–132; RESP 13–20; TEMP 36.6; O2SAT 20–100; BMI 18.3
--- NOTE | 2020-04-14 10:22 | EKG12_ITS ---
Test Reason : PALPS Blood Pressure : / mmHG Vent. Rate : 130 BPM Atrial Rate : 130 BPM P-R Int : 080 ms QRS Dur : 070 ms QT Int : 320 ms P-R-T Axes : 000 081 042 degrees QTc Int : 470 ms Atrial Flutter Low voltage QRS (Limb Leads) Confirmed by IOANA BOWLING, ALEXANDRIA ([id number]), newspaper managing editor JEFE ZEPEDA ([id number]) on 04/18/2020 12:40:46 PM Referred By: EMELY Confirmed By:ALEXANDRIA TRIPLETT MD
--- NOTE | 2020-04-14 10:23 | ED.VIS.CHEST ---
History of Present Illness Chief Complaint: Palpitations Informant: Patient Onset: Today Timing: Intermittent Quality: Sharp Location: Left Chest Narrative: Patient is a 35-year-old female with complex medical history including atrial fib status post cardioversion in 2014, atrial flutter status post ablation 2016, mitral valve repair in 2009 with PFO repair presenting with chest pain and sensation of her heart racing. Patient states she has been feeling palpitations in her chest for the past 24 hours intermittently. She states they are painful and she will get pain in her left chest when this happens. Her heart rates been as high as 150. She denies any significant shortness of breath but does have some chronic intermittent shortness of breath. Patient did have a SATHYA 2 days ago for routine monitoring ordered by her extension clerk. It was normal with an EF of 60%. Patient notes this morning when she was walking to her car she felt little lightheaded and her vision did get fuzzy for couple seconds. She denies any other associated symptoms. No other complaints at this time. Prior Similar Symptoms: Yes, - - A fib/flutter Past Medical History - Allergies and Home Meds Allergies/Adverse Reactions: Allergies hydrocodone [From Vicodin] Adverse Reaction (Intermediate, Verified 04/14/20 09:59) nausea intolerance caterpillars Adverse Reaction (Unknown, Uncoded 04/14/20 09:59) unknown Primary Care Physician: Ezra Arenas MD [Primary Care Provider] - Gene Terrell MD [STAFF PHYSICIAN] - 1 Week Past Medical History: - - Startup fib/flutter status post ablation Surgical History: - - Mitral Valve repair, cardiac ablation Smoking Status: Never smoker Review of Systems General: Denies: Chills, Fever, Sweats Eyes: Denies: Visual changes - bilaterally, Diplopia ENT: Denies: Rhinorrhea, Sore throat Cardiovascular: Reports: Chest pain, Palpitations, Heart racing Respiratory: Denies: Dyspnea, Cough, Dyspnea on exertion Gastrointestinal: Denies: Abdominal pain, Nausea, Vomiting, Diarrhea, Melena, Hematochezia Genitourinary: Denies: Dysuria, Hematuria, Frequency Musculoskeletal: Denies: Back pain, Extremity Pain Skin: Denies: Rash, Wounds Neurological: Denies: Headache, Weakness, Numbness Physical Exam Vital Signs/Narrative: Vital Signs Temp Pulse Resp BP Pulse Ox 04/14/20 09:55 97.9 F 132 H 18 111/77 99 Inital Vital Signs reviewed: Yes General: Well nourished, Well developed, No Acute Distress Head: Normocephalic, Atraumatic Eyes: Perrl, EOMI ENT: Moist mucous membranes, No rhinorrhea Neck: Supple, Nontender, No JVD Cardiovascular: Regular rhythm, No murmurs, Tachycardia Respiratory: No distress, CTA bilaterally, Chest nontender, - - no crackels. Negative for: Diminished, Decreased Air Movement Abdomen: Soft, Nontender, Nondistended, Normal bowel sounds Back: Nontender, Normal Inspection Extremities: Nontender, No edema Skin: Normal color, No rash Neurological: Alert, Oriented x3, Cranial nerves II-XII grossly intact, Normal Strength, Normal Sensation Psychological: Normal affect, Normal Mood Diagnostic/Tx/Re-eval Chest X-Ray - ED: 1 View, Read by ED Physician, Read by Radiologist, No Acute Disease Clinical Impression(s) from Imaging Studies Chest X-Ray 04/14/20 11:05 IMPRESSION: Hyperinflation. The lungs are clear. Electronically Signed: Rio Rj, at 11:21 EDT , Service support , Laboratory Data 04/14/20 04/14/20 04/14/20 10:35 10:35 10:35 WBC 6.3 RBC 5.50 H Hgb 16.1 H Hct 50.2 H MCV 91.3 MCH 29.3 MCHC 32.1 RDW Std Deviation 43.7 RDW Coeff of [place] 12.9 Plt Count 336 MPV 9.2 Immature Gran % (Auto) 0.200 Neut % (Auto) 61.5 Lymph % (Auto) 28.7 [place] % (Auto) 8.2 Eos % (Auto) 0.6 Baso % (Auto) 0.8 Absolute Neuts (auto) 3.9 Absolute Lymphs (auto) 1.82 Nucleated RBC % 0 D-Dimer Quant (PE/DVT) <= 0.27 Sodium 143 Potassium 3.7 Chloride 111 H Carbon Dioxide 26.0 Anion Gap 6 BUN 12 Creatinine 0.88 Estim Creat Clear Calc 84.34 Est GFR (MDRD) Af Amer 94 Est GFR (MDRD) Non-Af 77 BUN/Creatinine Ratio 13.6 Glucose 90 Calcium 9.4 Magnesium 2.3 Troponin I < 0.015 B-Natriuretic Peptide TSH 0.99 04/14/20 10:35 WBC RBC Hgb Hct MCV MCH MCHC RDW Std Deviation RDW Coeff of [place] Plt Count MPV Immature Gran % (Auto) Neut % (Auto) Lymph % (Auto) [place] % (Auto) Eos % (Auto) Baso % (Auto) Absolute Neuts (auto) Absolute Lymphs (auto) Nucleated RBC % D-Dimer Quant (PE/DVT) Sodium Potassium Chloride Carbon Dioxide Anion Gap BUN Creatinine Estim Creat Clear Calc Est GFR (MDRD) Af Amer Est GFR (MDRD) Non-Af BUN/Creatinine Ratio Glucose Calcium Magnesium Troponin I B-Natriuretic Peptide 311.3 H TSH - Rhythm Strip Rhythm Strip: Sinus Tach Rate: 130 Ectopy: None - EKG Initial EKG Interpretation: Sinus Tachycardia, - - Cardiac rate of 130 with a shortened GA interval of [address] segments Interpretation includes slow SVT versus sinus tach versus atrial flutter Follow-up EKG Interpretation: Sinus Rhythm, - - Sinus rhythm rate of 75 normal axis normal intervals. Normal ST segments - Medical Decision Making Patient is evaluated for palpitations it started suddenly around 11:00 last night. Patient had a SATHYA 2 days ago for evaluation of mitral valve replacement that was centrally normal and showed no thrombus. She is not on any anticoagulation. Patient is given IV fluids with no improvement of her tachycardia but her a.m. is otherwise benign. Troponin is negative. She does have a mildly elevated proBNP but clinically does not appear to be fluid overloaded. Given her complex cardiac history I did discuss the case with cardiology on-call, , who will review the EKG with me. He agrees that this could actually be a slow SVT or other arrhythmia. Recommends given adenosine to see if it breaks the rhythm or shows underlying rhythm. Patient is given 6 mg of IV adenosine which she tolerates well and a rhythm strip shows underlying atrial flutter. Discussed the case again with cardiology who is agreeable with cardioversion given that the fact that the patient's had sudden onset of symptoms last night and had a negative SATHYA with no signs of thrombus 2 days ago. Think she is low risk for stroke or any other complications. Informed consent obtained. See procedure note for cardioversion however patient tolerated procedure well and was cardioverted back to normal sinus rhythm. She will be started on metoprolol 25 mg twice daily tartrate as well as Xarelto. She is given first dose in the emergency room. She will follow-up outpatient with cardiology. Patient is counseled on signs and symptoms requiring return to the emergency room. Patient verbalizes agreement and understand this plan. Patient discharged home in stable and improved condition. Critical care time (excluding procedures): Discussing w/Consultants - 37 minutes for management of tach arrhythmia requiring multiple consults with cardiology and ultimately given adenosine and cardioversion. Multiple rechecks on patient. Procedures Procedure(s): Cardioversion. Patient placed on continuous pulse oximetry and telemetry. She is given 5 mg of IV Versed and 50 mcg of fentanyl IV. Once adequate sedation achieved patient is cardioverted using synchronized cardioversion at 150 J. Patient has a change in rhythm to normal sinus rhythm and her rate is now in the 70s to 80s. No episodes of hypotension or apnea. Patient tolerated procedure well with no immediate complication. ED Disposition - Plan for ED Patient: Disposition: Home or Assisted Living Diagnosis: Atrial flutter Instructions: ED Paroxysmal Atrial Flutter, ED Cardioversion Electrical Prescriptions: Metoprolol Tartrate 25 mg PO BID #60 tab Transmission Status: Received by [id number] Rivaroxaban [Xarelto] 15 mg PO DAILY #30 tab Transmission Status: Received by [id number] Referrals: Ezra Arenas MD [Primary Care Provider] - Gene Terrell MD [STAFF PHYSICIAN] - 1 Week
--- NOTE | 2020-04-14 10:25 | ED.RN ---
NO OLD EKGS
[2020-04-14 10:47] LABS: Absolute Lymphocyte Count 1.82 X10^3/uL (0.83-4.51); Absolute Neutrophil Count 3.9 X10^3/uL (2.0-7.7); Basophil# 0.05 X10^3/uL; Basophil% 0.8 % (0-1); Eosinophil# 0.04 X10^3/uL; Eosinophils% 0.6 % (0-5); Hematocrit 50.2 % (37-47); Hemoglobin 16.1 g/dL (12.0-15.0); Lymphocyte # 1.82 X10^3/ul (4.0); Lymphocyte % 28.7 % (19-41); Mean Corp Hgb Conc 32.1 g/dL (32-36); Mean Corpuscular Hgb 29.3 pg (27.0-32.0); Mean Corpuscular Volume 91.3 fL (81-99); Mean Platelet Vol. 9.2 fl (6.2-12.0); Monocyte# 0.52 X10^3/uL; Monocyte% 8.2 % (0-10); NRBC Flagged by Analyzer 0 % (0-5); Neutrophil % 61.5 % (47-70); Platelet Count 336 K/mm3 (150-450); RBC Distribution Width CV 12.9 % (11.6-14.6); RBC Distribution Width SD 43.7 fl (35.1-43.9); White Blood Count 6.3 K/mm3 (4.4-11.0)
[2020-04-14 11:04] LABS: BNP,B-Type NATRIURETIC PEPTIDE 311.3 pg/mL (0-100)
[2020-04-14 11:05] LABS: D-Dimer Quantitative (DVT/PE) <= 0.27 FEU/ug/m (0.27-0.49)
--- NOTE | 2020-04-14 11:05 | RAD_ITS ---
STUDY: X-RAY CHEST REASON FOR EXAM: Female, 35 years old. PALPITATIONS TECHNIQUE: Single AP portable view of the chest. COMPARISON: Comparison is made with prior examination dated 08/26/2018. FINDINGS: EKG electrodes are seen. Hyperinflation. There is no demonstrated pleural abnormality. Sternal cerclage wires are present from a prior sternotomy. Prior mitral valve replacement. Once again, 2 screws are seen in the anterior chest on either side of the sternum. Normal mediastinum and zoe. Normal visualized pulmonary arteries. Normal visualized aortic arch and descending thoracic aorta. Normal visualized thoracic spine. Normal visualized ribs, clavicles, and shoulders. There is no demonstrated abnormality of the visualized soft tissue structures of the upper abdomen. RAD/Chest 1 View (Portable) IMPRESSION: Hyperinflation. The lungs are clear. Electronically Signed: Rio De La Rosa, at 11:21 EDT , Service support ,
[2020-04-14 11:07] LABS: Anion Gap 6 (5-15); BUN 12 mg/dL (7-18); BUN/Creat Ratio 13.6 RATIO (10-20); Calcium,Total 9.4 mg/dL (8.5-10.1); Chloride 111 mmol/L (98-107); Creatinine, Serum 0.88 mg/dL (0.55-1.02); EST Glomerular Filtration Rate 77 mL/min (>60); Est Glom Filt Rate - Afr Amer 94 mL/min (>60); Estimated Creatinine Clearance 84.34 ml/min; Glucose 90 mg/dL (74-106); Magnesium 2.3 mg/dL (1.6-2.6); Potassium 3.7 mmol/L (3.5-5.1); Sodium Level 143 mmol/L (136-145); Thyroid Stim Hormone (TSH) 0.99 uIU/mL (0.358-3.74)
[2020-04-14] MEDS: 0.9% Normal Saline 1,000 ML 1000 ML IV (11:43)
[2020-04-14] MEDS: Acetaminophen 500 MG Tablet 1000 MG PO (11:44)
[2020-04-14] MEDS: Adenosine 6 MG/2 ML Syringe IV (13:36)
[2020-04-14] MEDS: fentaNYL 100 MCG/2 ML Ampul 50 MCG IV (15:19)
[2020-04-14] MEDS: Midazolam 5 MG/ML Syringe IV (15:19)
--- NOTE | 2020-04-14 15:29 | EKG12_ITS ---
Test Reason : REPEAT Blood Pressure : / mmHG Vent. Rate : 075 BPM Atrial Rate : 075 BPM P-R Int : 146 ms QRS Dur : 076 ms QT Int : 416 ms P-R-T Axes : 075 049 038 degrees QTc Int : 464 ms Normal sinus rhythm Low voltage QRS (Limb Leads) Confirmed by IOANA BOWLING, ALEXANDRIA ([id number]), writer editor JEFE ZEPEDA ([id number]) on 04/18/2020 12:41:09 PM Referred By: EMELY Confirmed By:ALEXANDRIA TRIPLETT MD
[2020-04-14] MEDS: Rivaroxaban 15 MG Tablet PO (17:01)
[2020-04-14] MEDS: Metoprolol Tartrate 25 MG Tablet PO (17:01)
== END 2020-04-14 17:07 | disposition home or self-care (01) ==
PROVIDERS: Emergency Provider Emergency Medicine; PCP Internal Medicine
DX: I48.91 Unspecified atrial fibrillation (principal); I48.92 Unspecified atrial flutter; Z87.74 Personal history of (corrected) congenital malformations of heart and circulatory system; Z95.2 Presence of prosthetic heart valve; Z79.01 Long term (current) use of anticoagulants; Z79.899 Other long term (current) drug therapy
CPT/HCPCS: 71045; 80048; 83735; 83880; 84443; 84484; 85025; 85379; 92960; 93005; 96361; 96374; 96375; 99283; J7030; A4216; J0153

== ENCOUNTER → 2020-05-12 14:43 | Outpatient (CLI) | payer OTHER, SELFPAY ==
[2020-05-02 14:10] VITALS: BMI 18.3
--- NOTE | 2020-05-12 14:44 | CT_ITS ---
STUDY: CT CHEST WITHOUT CONTRAST REASON FOR EXAM: Female, 35 years old. BRONCHOMALACIA -- SHORT OF BREATH/COUGH X3-4 YEARS -- SURG-PECTUS EXCAVATUM-PIETRO and amp;amp; SCREWS LATER PIETRO REMOVED, MITRAL VALVE PROLAPSE, -- CARDIO ABLATION,CARDIO INVERSION RADIATION DOSAGE (If Supplied By Facility): CTDIvol = ( 12.19 ) mGy, DLP = ( 408.10 ) mGycm TECHNIQUE: Transaxial imaging was performed without the administration of intravenous contrast material. Multiplanar coronal and sagittal images were reformatted. Individualized dose optimization techniques were used for this CT. COMPARISON: None. FINDINGS: The lungs are normal. There is no demonstrated pleural abnormality. There are calcifications of the coronary arteries. Normal mediastinum. Normal hilar regions. Normal unenhanced pulmonary arteries. Normal aorta arch and descending thoracic aorta. Is evidence of a prior sternal surgery for pectus excavatum surgery. There is no demonstrated abnormality of the visualized upper abdomen. CT/Chest without Contrast IMPRESSION: Prior correction of the pectus excavatum deformity. Coronary artery calcification. Electronically Signed: Rio De La Rosa, at 15:27 EST , Service support ,
== END ==
PROVIDERS: PCP Internal Medicine; Referring Provider Nurse Practitioner Acute Care; Visit Provider Nurse Practitioner Acute Care
DX: J98.09 Other diseases of bronchus, not elsewhere classified (principal); M35.9 Systemic involvement of connective tissue, unspecified
CPT/HCPCS: 71250

== ENCOUNTER 2020-05-23 15:01 | Outpatient (RCR) | payer OTHER, SELFPAY ==
[2020-05-02 14:10] VITALS: BMI 18.3
[2020-05-23 16:45] LABS: International Normalized Ratio 1.4; Prothrombin Time (Protime)PT. 16.4 SECONDS (11.7-14.9)
== END 2020-05-23 18:00 | disposition home or self-care (01) ==
LOC: LAB 15:01
PROVIDERS: PCP Internal Medicine; Referring Provider Physician Assistant Medical; Visit Provider Physician Assistant Medical
DX: I48.92 Unspecified atrial flutter (principal)
CPT/HCPCS: 36415; 85610

== ENCOUNTER 2020-06-20 14:45 | Outpatient (RCR) | payer OTHER, SELFPAY ==
[2020-05-02 14:10] VITALS: BMI 18.3
[2020-05-30 16:30] LABS: International Normalized Ratio 1.7; Prothrombin Time (Protime)PT. 19.7 SECONDS (11.7-14.9)
[2020-06-06 16:24] LABS: International Normalized Ratio 1.9; Prothrombin Time (Protime)PT. 21.6 SECONDS (11.7-14.9)
[2020-06-13 17:12] LABS: International Normalized Ratio 1.9; Prothrombin Time (Protime)PT. 21.1 SECONDS (11.7-14.9)
[2020-06-20 16:38] LABS: International Normalized Ratio 1.9; Prothrombin Time (Protime)PT. 21.2 SECONDS (11.7-14.9)
== END 2020-06-20 18:00 | disposition home or self-care (01) ==
LOC: LAB 14:45
PROVIDERS: Internal Medicine Cardiovascular Disease; PCP Internal Medicine; Referring Provider Physician Assistant Medical; Visit Provider Physician Assistant Medical
DX: I48.92 Unspecified atrial flutter (principal); Z79.01 Long term (current) use of anticoagulants
CPT/HCPCS: 36415; 85610

== ENCOUNTER 2020-07-18 14:56 | Outpatient (RCR) | payer OTHER, SELFPAY ==
[2020-05-02 14:10] VITALS: BMI 18.3
[2020-06-27 17:25] LABS: Prothrombin Time (Protime)PT. 22.6 SECONDS (11.7-14.9)
[2020-07-11 15:59] LABS: International Normalized Ratio 1.7; Prothrombin Time (Protime)PT. 19.7 SECONDS (11.7-14.9)
[2020-07-18 16:00] LABS: Prothrombin Time (Protime)PT. 22.5 SECONDS (11.7-14.9)
== END 2020-07-18 18:00 | disposition home or self-care (01) ==
LOC: LAB 14:56
PROVIDERS: PCP Internal Medicine; Referring Provider Physician Assistant Medical; Visit Provider Physician Assistant Medical
DX: I48.92 Unspecified atrial flutter (principal); Z79.01 Long term (current) use of anticoagulants
CPT/HCPCS: 36415; 85610

== ENCOUNTER 2020-08-15 14:40 | Outpatient (RCR) | payer OTHER, SELFPAY ==
[2020-05-02 14:10] VITALS: BMI 18.3
[2020-08-01 15:50] LABS: International Normalized Ratio 2.1; Prothrombin Time (Protime)PT. 23.3 SECONDS (11.7-14.9)
[2020-08-08 15:07] LABS: International Normalized Ratio 1.4; Prothrombin Time (Protime)PT. 17.1 SECONDS (11.7-14.9)
[2020-08-15 16:37] LABS: International Normalized Ratio 2.3; Prothrombin Time (Protime)PT. 24.6 SECONDS (11.7-14.9)
== END 2020-08-15 18:00 | disposition home or self-care (01) ==
LOC: LAB 14:40
PROVIDERS: PCP Internal Medicine; Referring Provider Physician Assistant Medical; Visit Provider Physician Assistant Medical
DX: I48.92 Unspecified atrial flutter (principal); Z79.01 Long term (current) use of anticoagulants
CPT/HCPCS: 36415; 85610

== ENCOUNTER 2020-09-19 14:39 | Outpatient (RCR) | payer OTHER, SELFPAY ==
[2020-08-29 15:03] LABS: International Normalized Ratio 2.2; Prothrombin Time (Protime)PT. 24.2 SECONDS (11.7-14.9)
[2020-09-12 15:51] LABS: International Normalized Ratio 1.7; Prothrombin Time (Protime)PT. 19.1 SECONDS (11.7-14.9)
[2020-09-19 15:19] LABS: Prothrombin Time (Protime)PT. 22.1 SECONDS (11.7-14.9)
== END 2020-09-19 18:00 | disposition home or self-care (01) ==
LOC: LAB 14:39
PROVIDERS: PCP Internal Medicine; Referring Provider Physician Assistant Medical; Visit Provider Physician Assistant Medical
DX: I48.92 Unspecified atrial flutter (principal); Z79.01 Long term (current) use of anticoagulants
CPT/HCPCS: 36415; 85610

== ENCOUNTER 2020-10-17 13:57 | Outpatient (RCR) | payer OTHER, SELFPAY ==
[2020-09-23 15:33] VITALS: BMI 18.3
[2020-09-26 17:03] LABS: International Normalized Ratio 2.4; Prothrombin Time (Protime)PT. 25.4 SECONDS (11.7-14.9)
[2020-10-03 15:48] LABS: International Normalized Ratio 2.2; Prothrombin Time (Protime)PT. 23.7 SECONDS (11.7-14.9)
[2020-10-17 15:27] LABS: International Normalized Ratio 2.2; Prothrombin Time (Protime)PT. 23.4 SECONDS (11.7-14.9)
== END 2020-10-17 18:00 | disposition home or self-care (01) ==
LOC: LAB 13:57
PROVIDERS: PCP Internal Medicine; Referring Provider Physician Assistant Medical; Visit Provider Physician Assistant Medical
DX: I48.92 Unspecified atrial flutter (principal); Z79.01 Long term (current) use of anticoagulants
CPT/HCPCS: 36415; 85610

== ENCOUNTER 2020-11-07 14:41 | Outpatient (RCR) | payer OTHER, SELFPAY ==
[2020-10-18 12:42] VITALS: BMI 18.8
[2020-11-07 17:09] LABS: International Normalized Ratio 1.7; Prothrombin Time (Protime)PT. 19.2 SECONDS (11.7-14.9)
== END 2020-11-07 18:00 | disposition home or self-care (01) ==
LOC: LAB 14:41
PROVIDERS: PCP Internal Medicine; Referring Provider Physician Assistant Medical; Visit Provider Physician Assistant Medical
DX: I48.92 Unspecified atrial flutter (principal); Z79.01 Long term (current) use of anticoagulants
CPT/HCPCS: 36415; 85610

== ENCOUNTER 2020-11-24 15:30 | Outpatient (RCR) | payer OTHER, SELFPAY ==
[2020-09-26 16:14] VITALS: BMI 18.6
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
--- NOTE | 2020-11-24 16:04 | HP.PTDCSUM_ITS ---
It has been my pleasure to treat BEVERLY HUA referred by AYAAN WEST, with the diagnosis of PECTUS EXCAVATUM,STRAIGHT BACK SYNDROME for a total of 9 visit(s). Discharge Date: 11/24/20 Please see the following information for a summary of their discharge status. Subjective: Doing better..I can breath alot better. Ex's helping.. Plan to do yoga on own. Plan to f/u with provisioning specialist Bilateral Back Pain Intensity (Out of 10): 0 % Improvement: 90 Objective/Function: POSTURE: reduce lordosis. BUE AROM: WNL. MMT: 4/5. THORACIC ROM: MIN LOSS EXTENSION Goal 1:: I with HEP. Goal Progress: Goal Met Goal 2:: Patient to improve thoracic ROM for function of recovery Goal Progress: Goal Met Goal 3:: Patient to improve posture for ADL's Goal Progress: Goal Met Goal 4:: Patient to improve backl owestry score by 5 points or > to improve function. Goal Progress: Goal Met Plan: D/C Discharge Comments: HEP If there are questions or concerns regarding this patient's physical therapy, please feel free to call me at [phone]. Thank you for the referral of this patient. Sincerely, Eulogio Salinas, PT, Cert MDT, OCS
== END 2020-11-24 19:00 | disposition home or self-care (01) ==
LOC: PT 15:30
PROVIDERS: PCP Internal Medicine
DX: R06.02 Shortness of breath (principal); Q67.6 Pectus excavatum; Q76.49 Other congenital malformations of spine, not associated with scoliosis
CPT/HCPCS: 97110; 97162; 97530

== ENCOUNTER → 2020-11-28 15:23 | Outpatient (CLI) | payer OTHER, SELFPAY ==
[2020-11-28 15:01] VITALS: BMI 18.8
[2020-11-28 16:47] LABS: Absolute Lymphocyte Count 1.82 X10^3/uL (0.83-4.51); Basophil# 0.05 X10^3/uL; Basophil% 0.8 % (0-1); Eosinophil# 0.13 X10^3/uL; Hematocrit 43.8 % (37-47); Hemoglobin 14.3 g/dL (12.0-15.0); Lymphocyte # 1.82 X10^3/ul (0.83-4.51); Lymphocyte % 27.6 % (19-41); Mean Corp Hgb Conc 32.6 g/dL (32-36); Mean Corpuscular Hgb 30.5 pg (27.0-32.0); Mean Corpuscular Volume 93.4 fL (81-99); Mean Platelet Vol. 9.6 fl (6.2-12.0); Monocyte# 0.55 X10^3/uL; Monocyte% 8.3 % (0-10); NRBC Flagged by Analyzer 0 % (0-5); Neutrophil # 4.03 X10^3/uL (2.7-7.7); Neutrophil % 61.1 % (47-70); Platelet Count 260 K/mm3 (150-450); RBC Distribution Width CV 12.8 % (11.6-14.6); RBC Distribution Width SD 43.8 fl (35.1-43.9); Red Blood Count 4.69 M/mm3 (4.2-5.4); White Blood Count 6.6 K/mm3 (4.4-11.0)
[2020-11-28 17:15] LABS: ALB/GLOB Ratio 1.1 RATIO (0.9-2.4); AST(SGOT) 18 U/L (15-37); Alanine Aminotransfer ALT/SGPT 23 U/L (13-56); Albumin, Serum 3.8 g/dL (3.2-5.0); Alkaline Phosphatase 56 U/L (45-117); Anion Gap 7 (5-15); BUN 13 mg/dL (7-18); BUN/Creat Ratio 17.2 RATIO (10-20); Calcium,Total 9.6 mg/dL (8.5-10.1); Chloride 109 mmol/L (98-107); Cholesterol 199 mg/dL (200); Creatinine, Serum 0.76 mg/dL (0.55-1.02); EST Glomerular Filtration Rate 92 mL/min (>60); Est Glom Filt Rate - Afr Amer 111 mL/min (>60); Globulin 3.5 g/dL (2.2-4.2); Glucose 96 mg/dL (74-106); High Density Lipoprotein 52 mg/dL; Potassium 5.1 mmol/L (3.5-5.1); Protein, Total 7.3 g/dL (6.4-8.2); Sodium Level 143 mmol/L (136-145); Triglycerides 292 mg/dL; Very Low Density Lipoprotein 58 mg/dL (5-40)
== END ==
PROVIDERS: PCP Internal Medicine; Visit Provider Internal Medicine
DX: Z00.00 Encounter for general adult medical examination without abnormal findings (principal)
CPT/HCPCS: 36415; 80053; 80061; 85025

== ENCOUNTER 2020-12-19 14:38 | Outpatient (RCR) | payer OTHER, SELFPAY ==
[2020-10-18 12:42] VITALS: BMI 18.8
[2020-11-22 15:18] LABS: International Normalized Ratio 1.9; Prothrombin Time (Protime)PT. 20.7 SECONDS (11.7-14.9)
[2020-12-05 15:38] LABS: International Normalized Ratio 3.1
[2020-12-19 16:20] LABS: International Normalized Ratio 2.4; Prothrombin Time (Protime)PT. 25.7 SECONDS (11.7-14.9)
== END 2020-12-19 18:00 | disposition home or self-care (01) ==
LOC: LAB 14:38
PROVIDERS: PCP Internal Medicine; Referring Provider Physician Assistant Medical; Visit Provider Physician Assistant Medical
DX: I48.92 Unspecified atrial flutter (principal); Z79.01 Long term (current) use of anticoagulants
CPT/HCPCS: 36415; 85610

== ENCOUNTER 2021-01-09 14:54 | Outpatient (RCR) | payer OTHER, SELFPAY ==
[2020-11-28 15:01] VITALS: BMI 18.8
[2021-01-09 15:59] LABS: International Normalized Ratio 2.8; Prothrombin Time (Protime)PT. 28.6 SECONDS (11.7-14.9)
== END 2021-01-09 18:00 | disposition home or self-care (01) ==
LOC: LAB 14:54
PROVIDERS: PCP Internal Medicine; Referring Provider Physician Assistant Medical; Visit Provider Physician Assistant Medical
DX: I48.92 Unspecified atrial flutter (principal); Z79.01 Long term (current) use of anticoagulants
CPT/HCPCS: 36415; 85610

== ENCOUNTER 2021-01-30 14:51 | Outpatient (RCR) | payer OTHER, SELFPAY ==
[2020-11-28 15:01] VITALS: BMI 18.8
[2021-01-30 17:02] LABS: International Normalized Ratio 2.7
== END 2021-01-30 18:00 | disposition home or self-care (01) ==
LOC: LAB 14:51
PROVIDERS: PCP Internal Medicine; Referring Provider Physician Assistant Medical; Visit Provider Physician Assistant Medical
DX: I48.92 Unspecified atrial flutter (principal); Z79.01 Long term (current) use of anticoagulants
CPT/HCPCS: 36415; 85610

== ENCOUNTER 2021-02-28 14:32 | Outpatient (RCR) | payer OTHER, SELFPAY ==
[2021-02-22 01:13] VITALS: BMI 18.8
[2021-02-28 17:34] LABS: International Normalized Ratio 2.2; Prothrombin Time (Protime)PT. 23.7 SECONDS (11.7-14.9)
== END 2021-02-28 18:00 | disposition home or self-care (01) ==
LOC: LAB 14:32
PROVIDERS: PCP Internal Medicine; Referring Provider Physician Assistant Medical; Visit Provider Physician Assistant Medical
DX: I48.92 Unspecified atrial flutter (principal); Z79.01 Long term (current) use of anticoagulants
CPT/HCPCS: 36415; 85610

== ENCOUNTER 2021-03-27 14:36 | Outpatient (RCR) | payer OTHER, SELFPAY ==
[2021-03-24 00:45] VITALS: BMI 18.8
[2021-03-27 15:10] LABS: International Normalized Ratio 2.8; Prothrombin Time (Protime)PT. 28.4 SECONDS (11.7-14.9)
== END 2021-04-23 05:23 | disposition home or self-care (01) ==
LOC: LAB 14:36
PROVIDERS: PCP Internal Medicine; Referring Provider Physician Assistant Medical; Visit Provider Physician Assistant Medical
DX: I48.92 Unspecified atrial flutter (principal); Z79.01 Long term (current) use of anticoagulants
CPT/HCPCS: 36415; 85610

== ENCOUNTER 2021-04-24 14:06 | Outpatient (RCR) | payer OTHER, SELFPAY ==
[2021-04-23 05:23] VITALS: BMI 18.8
[2021-04-24 14:38] LABS: International Normalized Ratio 2.7
== END 2021-05-23 18:00 | disposition home or self-care (01) ==
LOC: LAB 14:06
PROVIDERS: PCP Internal Medicine; Referring Provider Physician Assistant Medical; Visit Provider Physician Assistant Medical
DX: I48.92 Unspecified atrial flutter (principal); Z79.01 Long term (current) use of anticoagulants
CPT/HCPCS: 36415; 85610

== ENCOUNTER 2021-05-29 14:58 | Outpatient (RCR) | payer OTHER, SELFPAY ==
[2021-05-24 02:33] VITALS: BMI 18.8
[2021-05-29 16:22] LABS: International Normalized Ratio 2.9; Prothrombin Time (Protime)PT. 29.6 SECONDS (11.7-14.9)
== END 2021-06-24 18:00 | disposition home or self-care (01) ==
LOC: LAB 14:58
PROVIDERS: PCP Internal Medicine; Referring Provider Physician Assistant Medical; Visit Provider Physician Assistant Medical
DX: I48.92 Unspecified atrial flutter (principal); Z79.01 Long term (current) use of anticoagulants
CPT/HCPCS: 36415; 85610

== ENCOUNTER 2021-06-26 13:36 | Outpatient (RCR) | payer OTHER, SELFPAY ==
[2021-06-26 02:46] VITALS: BMI 18.8
[2021-06-26 14:24] LABS: International Normalized Ratio 2.9; Prothrombin Time (Protime)PT. 29.1 SECONDS (11.7-14.9)
== END 2021-07-24 18:00 | disposition home or self-care (01) ==
LOC: LAB 13:36
PROVIDERS: PCP Internal Medicine; Referring Provider Physician Assistant Medical; Visit Provider Physician Assistant Medical
DX: I48.92 Unspecified atrial flutter (principal); Z79.01 Long term (current) use of anticoagulants; Z86.79 Personal history of other diseases of the circulatory system
CPT/HCPCS: 36415; 85610

== ENCOUNTER 2021-07-31 14:52 | Outpatient (RCR) | payer OTHER, SELFPAY ==
[2021-07-25 02:33] VITALS: BMI 18.8
[2021-07-31 16:01] LABS: International Normalized Ratio 2.6; Prothrombin Time (Protime)PT. 26.9 SECONDS (11.7-14.9)
== END 2021-07-31 23:59 | disposition home or self-care (01) ==
LOC: LAB 14:52
PROVIDERS: PCP Internal Medicine; Referring Provider Physician Assistant Medical; Visit Provider Physician Assistant Medical
DX: I48.92 Unspecified atrial flutter (principal); Z79.01 Long term (current) use of anticoagulants; Z86.79 Personal history of other diseases of the circulatory system
CPT/HCPCS: 36415; 85610

== ENCOUNTER 2021-08-28 14:47 | Outpatient (RCR) | payer OTHER, SELFPAY ==
[2021-08-22 10:36] VITALS: BMI 18.8
[2021-08-28 17:45] LABS: International Normalized Ratio 2.8; Prothrombin Time (Protime)PT. 28.6 SECONDS (11.7-14.9)
== END 2021-09-21 18:00 | disposition home or self-care (01) ==
LOC: LAB 14:47
PROVIDERS: Internal Medicine Cardiovascular Disease; PCP Internal Medicine; Referring Provider Physician Assistant Medical; Visit Provider Physician Assistant Medical
DX: I48.92 Unspecified atrial flutter (principal); Z79.01 Long term (current) use of anticoagulants; Z86.79 Personal history of other diseases of the circulatory system
CPT/HCPCS: 36415; 85610

== ENCOUNTER 2021-09-25 14:49 | Outpatient (RCR) | payer OTHER, SELFPAY ==
[2021-09-22 02:51] VITALS: BMI 18.8
[2021-09-25 16:02] LABS: International Normalized Ratio 2.3; Prothrombin Time (Protime)PT. 24.3 SECONDS (11.7-14.9)
== END 2021-09-25 18:00 | disposition home or self-care (01) ==
LOC: LAB 14:49
PROVIDERS: PCP Internal Medicine; Referring Provider Physician Assistant Medical; Visit Provider Physician Assistant Medical
DX: I48.92 Unspecified atrial flutter (principal); Z79.01 Long term (current) use of anticoagulants; Z86.79 Personal history of other diseases of the circulatory system
CPT/HCPCS: 36415; 85610

== ENCOUNTER 2021-10-25 14:29 | Outpatient (RCR) | payer OTHER, SELFPAY ==
[2021-10-22 04:31] VITALS: BMI 18.8
[2021-10-25 17:26] LABS: International Normalized Ratio 2.6; Prothrombin Time (Protime)PT. 27.4 SECONDS (11.7-14.9)
== END 2021-10-25 18:00 | disposition home or self-care (01) ==
LOC: LAB 14:29
PROVIDERS: PCP Internal Medicine; Referring Provider Physician Assistant Medical; Visit Provider Physician Assistant Medical
DX: I48.92 Unspecified atrial flutter (principal); Z86.79 Personal history of other diseases of the circulatory system; Z79.01 Long term (current) use of anticoagulants
CPT/HCPCS: 36415; 85610

== ENCOUNTER 2021-11-29 10:01 | Outpatient (RCR) | payer OTHER, SELFPAY ==
[2021-11-21 21:38] VITALS: BMI 18.8
[2021-11-29 12:19] LABS: Absolute Lymphocyte Count 1.65 X10^3/uL (0.83-4.51); Absolute Neutrophil Count 3.1 X10^3/uL (2.0-7.7); Basophil# 0.05 X10^3/uL; Basophil% 0.9 % (0-1); Eosinophil# 0.09 X10^3/uL; Eosinophils% 1.7 % (0-5); Hematocrit 48.2 % (37-47); Hemoglobin 15.8 g/dL (12.0-15.0); Lymphocyte # 1.65 X10^3/ul (0.83-4.51); Lymphocyte % 30.6 % (19-41); Mean Corp Hgb Conc 32.8 g/dL (32-36); Mean Corpuscular Hgb 30.4 pg (27.0-32.0); Mean Corpuscular Volume 92.7 fL (81-99); Mean Platelet Vol. 9.8 fl (6.2-12.0); Monocyte# 0.47 X10^3/uL; Monocyte% 8.7 % (0-10); NRBC Flagged by Analyzer 0 % (0-5); Neutrophil # 3.12 X10^3/uL (2.7-7.7); Neutrophil % 57.9 % (47-70); Platelet Count 276 K/mm3 (150-450); RBC Distribution Width CV 12.8 % (11.6-14.6); RBC Distribution Width SD 43.6 fl (35.1-43.9); White Blood Count 5.4 K/mm3 (4.4-11.0)
[2021-11-29 12:31] LABS: International Normalized Ratio 2.8; Prothrombin Time (Protime)PT. 29.3 SECONDS (11.7-14.9)
[2021-11-29 12:43] LABS: ALB/GLOB Ratio 1.1 RATIO (0.9-2.4); AST(SGOT) 16 U/L (15-37); Alanine Aminotransfer ALT/SGPT 23 U/L (13-56); Albumin, Serum 3.9 g/dL (3.2-5.0); Alkaline Phosphatase 56 U/L (45-117); Anion Gap 6 (5-15); BUN 12 mg/dL (7-18); BUN/Creat Ratio 14.1 RATIO (10-20); Calcium,Total 9.5 mg/dL (8.5-10.1); Chloride 107 mmol/L (98-107); Cholesterol 212 mg/dL (200); Creatinine, Serum 0.85 mg/dL (0.55-1.02); EST Glomerular Filtration Rate 80 mL/min (>60); Est Glom Filt Rate - Afr Amer 97 mL/min (>60); Globulin 3.5 g/dL (2.2-4.2); Glucose 81 mg/dL (74-106); High Density Lipoprotein 49 mg/dL; Potassium 4.3 mmol/L (3.5-5.1); Protein, Total 7.4 g/dL (6.4-8.2); Sodium Level 140 mmol/L (136-145); Triglycerides 234 mg/dL; Very Low Density Lipoprotein 47 mg/dL (5-40)
== END 2021-12-21 23:59 ==
LOC: BIMLAB 10:01
PROVIDERS: PCP Internal Medicine; Referring Provider Physician Assistant Medical; Visit Provider Physician Assistant Medical
DX: I48.92 Unspecified atrial flutter (principal); Z79.01 Long term (current) use of anticoagulants; Z86.79 Personal history of other diseases of the circulatory system; Z00.00 Encounter for general adult medical examination without abnormal findings
CPT/HCPCS: 36415; 80053; 80061; 85025; 85610

== ENCOUNTER 2022-01-05 15:04 | Outpatient (RCR) | payer OTHER, SELFPAY ==
[2021-12-22 00:11] VITALS: BMI 18.8
[2021-12-22 15:40] LABS: International Normalized Ratio 3.2; Prothrombin Time (Protime)PT. 32.6 SECONDS (11.7-14.9)
[2022-01-05 15:43] LABS: International Normalized Ratio 2.3; Prothrombin Time (Protime)PT. 25.1 SECONDS (11.7-14.9)
== END 2022-01-21 03:18 | disposition home or self-care (01) ==
LOC: LAB 15:04
PROVIDERS: PCP Internal Medicine; Referring Provider Physician Assistant Medical; Visit Provider Physician Assistant Medical
DX: I48.92 Unspecified atrial flutter; Z79.01 Long term (current) use of anticoagulants; Z86.79 Personal history of other diseases of the circulatory system
CPT/HCPCS: 36415; 85610

== ENCOUNTER 2022-01-26 12:17 | Outpatient (RCR) | payer OTHER, SELFPAY ==
[2022-01-21 03:18] VITALS: BMI 18.8
[2022-01-26 13:19] LABS: International Normalized Ratio 2.2; Prothrombin Time (Protime)PT. 23.7 SECONDS (11.7-14.9)
== END 2022-01-26 18:00 | disposition home or self-care (01) ==
LOC: LAB 12:17
PROVIDERS: PCP Internal Medicine; Referring Provider Physician Assistant Medical; Visit Provider Physician Assistant Medical
DX: I48.92 Unspecified atrial flutter (principal); Z79.01 Long term (current) use of anticoagulants; Z86.79 Personal history of other diseases of the circulatory system
CPT/HCPCS: 36415; 85610

== ENCOUNTER 2022-03-16 11:26 | Outpatient (RCR) | payer OTHER, SELFPAY ==
[2022-02-22 00:35] VITALS: BMI 18.8
[2022-03-02 12:40] LABS: International Normalized Ratio 3.3; Prothrombin Time (Protime)PT. 33.6 SECONDS (11.7-14.9)
[2022-03-16 11:50] LABS: International Normalized Ratio 3.3; Prothrombin Time (Protime)PT. 33.4 SECONDS (11.7-14.9)
== END 2022-03-16 18:00 | disposition home or self-care (01) ==
LOC: LAB 11:26
PROVIDERS: PCP Internal Medicine; Referring Provider Physician Assistant Medical; Visit Provider Physician Assistant Medical
DX: I48.92 Unspecified atrial flutter (principal); Z79.01 Long term (current) use of anticoagulants; Z86.79 Personal history of other diseases of the circulatory system
CPT/HCPCS: 36415; 85610

== ENCOUNTER 2022-04-20 07:33 | Outpatient (RCR) | payer OTHER, SELFPAY ==
[2022-03-23 23:41] VITALS: BMI 18.8
[2022-03-30 15:03] LABS: International Normalized Ratio 3.5; Prothrombin Time (Protime)PT. 34.6 SECONDS (11.7-14.9)
[2022-04-06 14:05] LABS: International Normalized Ratio 2.7; Prothrombin Time (Protime)PT. 27.9 SECONDS (11.7-14.9)
[2022-04-20 09:00] LABS: International Normalized Ratio 2.2; Prothrombin Time (Protime)PT. 24.2 SECONDS (11.7-14.9)
== END 2022-04-20 18:00 | disposition home or self-care (01) ==
LOC: LAB 07:33
PROVIDERS: PCP Internal Medicine; Referring Provider Physician Assistant Medical; Visit Provider Physician Assistant Medical
DX: I48.92 Unspecified atrial flutter (principal); Z79.01 Long term (current) use of anticoagulants; Z86.79 Personal history of other diseases of the circulatory system
CPT/HCPCS: 36415; 85610

== ENCOUNTER → 2022-04-20 | Outpatient (CLI) | payer OTHER, SELFPAY ==
--- NOTE | 2022-04-20 07:47 | ECHOD_ITS ---
Reason For Study: Valve Repair Procedure This was a 2D Doppler, Color Flow transthoracic echocardiogram. Exam performed in department. Left Ventricle Normal LV size. Apical false tendon noted. Left ventricular systolic function is normal. The estimated ejection fraction is 65 %. No evidence for diastolic dysfunction. No regional wall motion abnormalities noted. Right Ventricle Normal RV size. Normal systolic function. Atria Normal left atrium. Normal right atrium. No doppler evidence for ASD. Mitral Valve Anterior leaflet diffuse mitral valve thickening. Mild focal mitral valve calcification of the anterior leaflet. Mitral valve doming/Hockey Sticking. An annuloplasty ring is noted in the mitral position. MIld (1+) transvalvular insufficiency of the mitral valve. Tricuspid Valve Normal tricuspid valve. Mild eccentric tricuspid valve insufficiency. Right ventricular systolic pressure estimated to be 23 mmHg. Aortic Valve Trisinus/trileaflet aortic valve. Normal aortic valve. Pulmonic Valve The pulmonic valve is not well visualized. Great Vessels Normal sized aortic root. Pericardium/Pleural No pericardial effusion. MMode/2D Measurements & Calculations LVIDd: 4.1 cm IVSd: 0.65 cm Ao root diam: 2.3 cm LVIDs: 2.6 cm LVPWd: 0.58 cm RVDd: 2.8 cm FS: 35.2 % LAV(MOD-bp): 26.1 ml LVAd ap4: 25.0 cm2 SV(MOD-sp4): 43.6 ml LAV(MOD-bp) Indexed: 14.6 ml/m2 LVLd ap4: 8.0 cm LAV(MOD-sp2): 17.1 ml EDV(MOD-sp4): 64.5 ml LAV(MOD-sp4): 26.0 ml EDV(sp4-el): 66.3 ml LVAs ap4: 12.9 cm2 LVLs ap4: 6.8 cm ESV(MOD-sp4): 20.9 ml ESV(sp4-el): 20.9 ml EF(MOD-sp4): 67.6 % EF(sp4-el): 68.4 % SV(sp4-el): 45.4 ml LA A4 area: 12.7 cm2 LA dimension(2D): 3.1 cm RA A4 area: 11.8 cm2 Time Measurements MV dec time: 0.31 sec Doppler Measurements & Calculations MV E max edenilson: 128.3 cm/sec Lat Peak E' Edenilson: 11.9 cm/sec Med Peak E' Edenilson: 12.1 cm/sec MV A max edenilson: 73.2 cm/sec E/E' lat: 10.8 E/E' med: 10.6 MV E/A: 1.8 MV V2 max: 140.0 cm/sec MV P1/2t max edenilson: 136.2 cm/sec Ao V2 max: 127.0 cm/sec MV max P.8 mmHg MV P1/2t: 88.3 msec Ao max P.5 mmHg MV V2 mean: 74.1 cm/sec Ao V2 mean: 90.7 cm/sec MV mean P.6 mmHg MV dec slope: 451.9 cm/sec2 Ao mean P.6 mmHg MV V2 VTI: 35.3 cm MVA(P1/2t): 2.5 cm2 Ao V2 VTI: 26.0 cm LV V1 max: 99.9 cm/sec PA V2 max: 84.7 cm/sec TR max edenilson: 223.4 cm/sec LV V1 max P.0 mmHg TR max P.0 mmHg ECHO/Echo Complete Interpretation Summary Left ventricular systolic function is normal. The estimated ejection fraction is 65 %. Apical false tendon noted. An annuloplasty ring is noted in the mitral position. Anterior leaflet diffuse mitral valve thickening. Mild focal mitral valve calcification of the anterior leaflet. Mitral valve doming/Hockey Sticking MIld (1+) transvalvular insufficiency of the mitral valve. Mild eccentric tricuspid valve insufficiency. Right ventricular systolic pressure estimated to be 23 mmHg. No evidence for diastolic dysfunction. Ordering Physician: Gene Terrell Referring Physician: Ezra Arenas Performed By: Barbara Coelho, AMAN, RVT
== END | disposition home or self-care (01) ==
LOC: CVS 07:46
PROVIDERS: PCP Internal Medicine; Referring Provider Internal Medicine Cardiovascular Disease; Visit Provider Internal Medicine Cardiovascular Disease
DX: Q67.6 Pectus excavatum (principal); Z98.890 Other specified postprocedural states
CPT/HCPCS: 93306

== ENCOUNTER 2022-05-11 10:53 | Outpatient (RCR) | payer OTHER, SELFPAY ==
[2022-04-24 10:43] VITALS: BMI 18.8
[2022-05-11 11:27] LABS: International Normalized Ratio 2.3; Prothrombin Time (Protime)PT. 24.7 SECONDS (11.7-14.9)
== END 2022-05-23 18:00 | disposition home or self-care (01) ==
LOC: LAB 10:53
PROVIDERS: PCP Internal Medicine; Referring Provider Physician Assistant Medical; Visit Provider Physician Assistant Medical
DX: I48.92 Unspecified atrial flutter (principal); Z79.01 Long term (current) use of anticoagulants; Z86.79 Personal history of other diseases of the circulatory system
CPT/HCPCS: 36415; 85610

== ENCOUNTER 2022-06-08 14:29 | Outpatient (RCR) | payer OTHER, SELFPAY ==
[2022-05-24 01:39] VITALS: BMI 18.8
[2022-06-08 16:27] LABS: International Normalized Ratio 2.1; Prothrombin Time (Protime)PT. 23.1 SECONDS (11.7-14.9)
== END 2022-06-08 18:00 | disposition home or self-care (01) ==
LOC: LAB 14:29
PROVIDERS: PCP Internal Medicine; Referring Provider Physician Assistant Medical; Visit Provider Physician Assistant Medical
DX: I48.92 Unspecified atrial flutter (principal); Z79.01 Long term (current) use of anticoagulants; Z86.79 Personal history of other diseases of the circulatory system
CPT/HCPCS: 36415; 85610

== ENCOUNTER 2022-07-06 11:21 | Outpatient (RCR) | payer OTHER, SELFPAY ==
[2022-06-24 05:43] VITALS: BMI 18.8
[2022-07-06 12:28] LABS: International Normalized Ratio 2.1; Prothrombin Time (Protime)PT. 23.6 SECONDS (11.7-14.9)
== END 2022-07-06 13:00 | disposition home or self-care (01) ==
LOC: LAB 11:21
PROVIDERS: PCP Internal Medicine; Referring Provider Physician Assistant Medical; Visit Provider Physician Assistant Medical
DX: I48.92 Unspecified atrial flutter (principal); Z79.01 Long term (current) use of anticoagulants; Z86.79 Personal history of other diseases of the circulatory system
CPT/HCPCS: 36415; 85610

== ENCOUNTER 2022-08-03 10:28 | Outpatient (RCR) | payer OTHER, SELFPAY ==
[2022-07-25 08:38] VITALS: BMI 18.8
[2022-08-03 10:53] LABS: International Normalized Ratio 2.2; Prothrombin Time (Protime)PT. 24.2 SECONDS (11.7-14.9)
== END 2022-08-03 18:00 | disposition home or self-care (01) ==
LOC: LAB 10:28
PROVIDERS: Internal Medicine Cardiovascular Disease; PCP Internal Medicine; Referring Provider Physician Assistant Medical; Visit Provider Physician Assistant Medical
DX: I48.92 Unspecified atrial flutter (principal); Z79.01 Long term (current) use of anticoagulants; Z86.79 Personal history of other diseases of the circulatory system
CPT/HCPCS: 36415; 85610

== ENCOUNTER 2022-08-31 11:01 | Outpatient (RCR) | payer OTHER, SELFPAY ==
[2022-08-21 23:01] VITALS: BMI 18.8
[2022-08-31 11:36] LABS: International Normalized Ratio 2.3; Prothrombin Time (Protime)PT. 24.6 SECONDS (11.7-14.9)
== END 2022-09-21 23:06 | disposition home or self-care (01) ==
LOC: LAB 11:01
PROVIDERS: PCP Internal Medicine; Referring Provider Physician Assistant Medical; Visit Provider Physician Assistant Medical
DX: I48.92 Unspecified atrial flutter (principal); Z79.01 Long term (current) use of anticoagulants; Z86.79 Personal history of other diseases of the circulatory system
CPT/HCPCS: 36415; 85610

== ENCOUNTER 2022-10-19 09:43 | Outpatient (RCR) | payer OTHER, SELFPAY ==
[2022-09-21 23:06] VITALS: BMI 18.8
[2022-09-28 12:23] LABS: International Normalized Ratio 2.3; Prothrombin Time (Protime)PT. 25.3 SECONDS (11.7-14.9)
[2022-10-19 11:13] LABS: Hematocrit 48.4 % (37-47); Hemoglobin 15.7 g/dL (12.0-15.0); Mean Corp Hgb Conc 32.4 g/dL (32-36); Mean Corpuscular Hgb 30.2 pg (27.0-32.0); Mean Corpuscular Volume 93.1 fL (81-99); Mean Platelet Vol. 9.9 fl (6.2-12.0); Platelet Count 323 K/mm3 (150-450); RBC Distribution Width SD 44.4 fl (35.1-43.9); White Blood Count 4.8 K/mm3 (4.4-11.0)
[2022-10-19 11:23] LABS: International Normalized Ratio 1.6; Prothrombin Time (Protime)PT. 19.5 SECONDS (11.7-14.9)
[2022-10-19 11:58] LABS: Anion Gap 2 (5-15); BUN 12 mg/dL (7-18); BUN/Creat Ratio 14.5 RATIO (10-20); Calcium,Total 9.7 mg/dL (8.5-10.1); Chloride 111 mmol/L (98-107); Creatinine, Serum 0.83 mg/dL (0.55-1.02); EST Glomerular Filtration Rate 82 mL/min (>60); Est Glom Filt Rate - Afr Amer 99 mL/min (>60); Glucose 82 mg/dL (74-106); Magnesium 2.3 mg/dL (1.6-2.6); Potassium 4.8 mmol/L (3.5-5.1); Sodium Level 140 mmol/L (136-145)
== END 2022-10-21 01:34 | disposition home or self-care (01) ==
LOC: LAB 09:43
PROVIDERS: Nurse Practitioner Gerontology; PCP Internal Medicine; Referring Provider Physician Assistant Medical; Visit Provider Physician Assistant Medical
DX: I48.92 Unspecified atrial flutter (principal); Z79.01 Long term (current) use of anticoagulants; Z86.79 Personal history of other diseases of the circulatory system; R00.2 Palpitations; R00.0 Tachycardia, unspecified
CPT/HCPCS: 36415; 80048; 83735; 84443; 85027; 85610

== ENCOUNTER → 2022-10-22 | Outpatient (CLI) | payer OTHER, SELFPAY | END | disposition home or self-care (01) | LOC: PSN 06:57 | PROVIDERS: PCP Internal Medicine; Referring Provider Internal Medicine Cardiovascular Disease; Visit Provider Internal Medicine Cardiovascular Disease | DX: R00.2 Palpitations (principal); R00.0 Tachycardia, unspecified; Z98.890 Other specified postprocedural states | CPT/HCPCS: 93225; 93226 ==

== ENCOUNTER 2022-11-09 11:45 | Outpatient (RCR) | payer OTHER, SELFPAY ==
[2022-10-21 01:35] VITALS: BMI 18.8
[2022-10-26 11:46] LABS: International Normalized Ratio 1.7; Prothrombin Time (Protime)PT. 19.7 SECONDS (11.7-14.9)
[2022-11-02 10:40] LABS: International Normalized Ratio 1.8; Prothrombin Time (Protime)PT. 21.1 SECONDS (11.7-14.9)
[2022-11-09 12:09] LABS: International Normalized Ratio 2.6; Prothrombin Time (Protime)PT. 27.8 SECONDS (11.7-14.9)
== END 2022-11-21 18:00 | disposition home or self-care (01) ==
LOC: LAB 11:45
PROVIDERS: PCP Internal Medicine; Referring Provider Physician Assistant Medical; Visit Provider Physician Assistant Medical
DX: I48.92 Unspecified atrial flutter (principal); Z79.01 Long term (current) use of anticoagulants; Z86.79 Personal history of other diseases of the circulatory system
CPT/HCPCS: 36415; 85610

== ENCOUNTER → 2022-11-23 | Outpatient (CLI) | payer OTHER, SELFPAY ==
[2022-11-23 15:33] LABS: International Normalized Ratio 2.5; Prothrombin Time (Protime)PT. 26.9 SECONDS (11.7-14.9)
[2022-11-23 16:03] LABS: Cholesterol 198 mg/dL (200); High Density Lipoprotein 52 mg/dL; Triglycerides 230 mg/dL; Very Low Density Lipoprotein 46 mg/dL (5-40)
== END | disposition home or self-care (01) ==
LOC: BIMLAB 14:40
PROVIDERS: Physician Assistant Medical; PCP Internal Medicine; Visit Provider Internal Medicine
DX: Z00.00 Encounter for general adult medical examination without abnormal findings (principal)
CPT/HCPCS: 36415; 80061; 85610

== ENCOUNTER 2022-12-21 10:42 | Outpatient (RCR) | payer OTHER, SELFPAY ==
[2022-11-22 08:22] VITALS: BMI 18.8
[2022-12-21 11:39] LABS: Prothrombin Time (Protime)PT. 31.7 SECONDS (11.7-14.9)
== END 2022-12-21 18:00 | disposition home or self-care (01) ==
LOC: LAB 10:42
PROVIDERS: PCP Internal Medicine; Referring Provider Physician Assistant Medical; Visit Provider Physician Assistant Medical
DX: I48.92 Unspecified atrial flutter (principal); Z79.01 Long term (current) use of anticoagulants; Z86.79 Personal history of other diseases of the circulatory system
CPT/HCPCS: 36415; 85610

== ENCOUNTER 2023-01-11 11:02 | Outpatient (RCR) | payer OTHER, SELFPAY ==
[2022-12-22 01:56] VITALS: BMI 18.8
[2023-01-11 11:32] LABS: International Normalized Ratio 2.3; Prothrombin Time (Protime)PT. 25.5 SECONDS (11.7-14.9)
== END 2023-01-21 18:00 | disposition home or self-care (01) ==
LOC: LAB 11:02
PROVIDERS: PCP Internal Medicine; Referring Provider Physician Assistant Medical; Visit Provider Physician Assistant Medical
DX: I48.92 Unspecified atrial flutter (principal); Z79.01 Long term (current) use of anticoagulants; Z86.79 Personal history of other diseases of the circulatory system
CPT/HCPCS: 36415; 85610

== ENCOUNTER 2023-02-08 10:57 | Outpatient (RCR) | payer OTHER, SELFPAY ==
[2023-01-22 01:57] VITALS: BMI 18.8
[2023-02-08 11:19] LABS: International Normalized Ratio 2.2
== END 2023-02-08 18:00 | disposition home or self-care (01) ==
LOC: LAB 10:57
PROVIDERS: PCP Internal Medicine; Referring Provider Physician Assistant Medical; Visit Provider Physician Assistant Medical
DX: I48.92 Unspecified atrial flutter (principal); Z79.01 Long term (current) use of anticoagulants; Z86.79 Personal history of other diseases of the circulatory system
CPT/HCPCS: 36415; 85610

== ENCOUNTER 2023-03-08 07:52 | Outpatient (RCR) | payer OTHER, SELFPAY ==
[2023-02-21 23:48] VITALS: BMI 18.8
[2023-03-08 09:29] LABS: International Normalized Ratio 2.2; Prothrombin Time (Protime)PT. 24.8 SECONDS (11.7-14.9)
== END 2023-03-08 18:00 | disposition home or self-care (01) ==
LOC: LAB 07:52
PROVIDERS: PCP Internal Medicine; Referring Provider Physician Assistant Medical; Visit Provider Physician Assistant Medical
DX: Z79.01 Long term (current) use of anticoagulants; Z86.79 Personal history of other diseases of the circulatory system
CPT/HCPCS: 36415; 85610

== ENCOUNTER 2023-04-05 11:03 | Outpatient (RCR) | payer OTHER, SELFPAY ==
[2023-03-24 04:48] VITALS: BMI 18.8
[2023-04-05 11:24] LABS: International Normalized Ratio 2.9; Prothrombin Time (Protime)PT. 30.9 SECONDS (11.7-14.9)
== END 2023-04-05 18:00 | disposition home or self-care (01) ==
LOC: LAB 11:03
PROVIDERS: PCP Internal Medicine; Referring Provider Physician Assistant Medical; Visit Provider Physician Assistant Medical
DX: Z79.01 Long term (current) use of anticoagulants; Z86.79 Personal history of other diseases of the circulatory system
CPT/HCPCS: 36415; 85610

== ENCOUNTER → 2023-04-15 | Outpatient (CLI) | payer OTHER, SELFPAY ==
--- NOTE | 2023-04-15 13:45 | RAD_ITS ---
STUDY: X-RAY CHEST REASON FOR EXAM: Female, 38 years old. Cough. TECHNIQUE: PA and lateral views of the chest. COMPARISON: Comparison is made with prior examination of April 14, 2020. FINDINGS: The patient is status post midline sternotomy. 4 small fixation screws to the right and left of the midline in the anterior chest suggestive of prior midline sternotomy. Hyperinflation. There is no demonstrated pleural abnormality. Normal size heart. Normal mediastinum and zoe. Normal visualized pulmonary arteries. Normal visualized aortic arch and descending thoracic aorta. Normal visualized thoracic spine. Normal visualized ribs, clavicles, and shoulders. There is no demonstrated abnormality of the visualized soft tissue structures of the upper abdomen. RAD/Chest PA and Lateral IMPRESSION: Normal x-ray examination of the chest. Electronically Signed: Rio De La Rosa MD at 14:26 EDT ,
== END | disposition home or self-care (01) ==
PROVIDERS: PCP Internal Medicine; Referring Provider Physician Assistant; Visit Provider Physician Assistant
DX: R05.9 Cough, unspecified (principal)
CPT/HCPCS: 71046

== ENCOUNTER 2023-05-03 11:04 | Outpatient (RCR) | payer OTHER, SELFPAY ==
[2023-04-23 22:54] VITALS: BMI 18.8
[2023-05-03 12:01] LABS: International Normalized Ratio 2.4; Prothrombin Time (Protime)PT. 26.4 SECONDS (11.7-14.9)
== END 2023-05-23 18:00 | disposition home or self-care (01) ==
LOC: LAB 11:04
PROVIDERS: PCP Internal Medicine; Referring Provider Physician Assistant Medical; Visit Provider Physician Assistant Medical
DX: I48.92 Unspecified atrial flutter (principal); Z79.01 Long term (current) use of anticoagulants; Z86.79 Personal history of other diseases of the circulatory system
CPT/HCPCS: 36415; 85610

== ENCOUNTER 2023-05-31 08:54 | Outpatient (RCR) | payer OTHER, SELFPAY ==
[2023-05-24 03:48] VITALS: BMI 18.8
[2023-05-31 11:20] LABS: International Normalized Ratio 2.1; Prothrombin Time (Protime)PT. 23.3 SECONDS (11.7-14.9)
== END 2023-06-23 18:00 | disposition home or self-care (01) ==
LOC: LAB 08:54
PROVIDERS: PCP Internal Medicine; Referring Provider Physician Assistant Medical; Visit Provider Physician Assistant Medical
DX: I48.92 Unspecified atrial flutter (principal); Z79.01 Long term (current) use of anticoagulants; Z86.79 Personal history of other diseases of the circulatory system
CPT/HCPCS: 36415; 85610

== ENCOUNTER 2023-06-28 09:22 | Outpatient (RCR) | payer OTHER, SELFPAY ==
[2023-06-23 22:07] VITALS: BMI 18.8
[2023-06-28 09:45] LABS: International Normalized Ratio 2.1; Prothrombin Time (Protime)PT. 24.1 SECONDS (11.7-14.9)
== END 2023-06-28 18:00 | disposition home or self-care (01) ==
LOC: LAB 09:22
PROVIDERS: PCP Internal Medicine; Referring Provider Physician Assistant Medical; Visit Provider Physician Assistant Medical
DX: I48.92 Unspecified atrial flutter (principal); Z79.01 Long term (current) use of anticoagulants; Z86.79 Personal history of other diseases of the circulatory system; Z98.890 Other specified postprocedural states; R00.2 Palpitations
CPT/HCPCS: 36415; 85610

== ENCOUNTER → 2023-07-15 | Outpatient (CLI) | payer OTHER, SELFPAY ==
--- NOTE | 2023-07-15 13:49 | ECHOD_ITS ---
Reason For Study: MVP Procedure This was a 2D Doppler, Color Flow transthoracic echocardiogram. Exam performed in department. Left Ventricle Normal LV size. Left ventricular systolic function is normal. The estimated ejection fraction is 65 %. No regional wall motion abnormalities noted. Right Ventricle Normal RV size. Normal systolic function. Atria Normal left atrium. Normal right atrium. Mitral Valve Status post mitral valve repair with annuloplasty ring. Tricuspid Valve Normal tricuspid valve. Mild tricuspid valve insufficiency. Aortic Valve Normal aortic valve. Pulmonic Valve Normal pulmonic valve. Great Vessels Normal aortic root. The pulmonary artery is normal size. Normal inferior vena cava. Pericardium/Pleural No pericardial effusion. MMode/2D Measurements & Calculations LVIDd: 3.9 cm IVSd: 0.74 cm Ao root diam: 2.4 cm LVIDs: 2.5 cm LVPWd: 0.73 cm RVDd: 2.8 cm FS: 37.4 % LAV(MOD-bp): 18.7 ml LVAd ap4: 21.3 cm2 SV(MOD-sp4): 32.5 ml LAV(MOD-bp) Indexed: 10.3 ml/m2 LVLd ap4: 7.6 cm LAV(MOD-sp2): 16.5 ml EDV(MOD-sp4): 49.6 ml LAV(MOD-sp4): 15.7 ml EDV(sp4-el): 50.3 ml LVAs ap4: 11.5 cm2 LVLs ap4: 6.4 cm ESV(MOD-sp4): 17.0 ml ESV(sp4-el): 17.4 ml EF(MOD-sp4): 65.6 % EF(sp4-el): 65.4 % SV(sp4-el): 32.9 ml LA A4 area: 9.9 cm2 LA dimension(2D): 2.8 cm RA A4 area: 10.0 cm2 TAPSE: 1.8 cm Time Measurements MV dec time: 0.25 sec Doppler Measurements & Calculations MV E max edenilson: 122.1 cm/sec Lat Peak E' Edenilson: 9.7 cm/sec Med Peak E' Edenilson: 10.0 cm/sec MV A max edenilson: 76.7 cm/sec E/E' lat: 12.6 E/E' med: 12.2 MV E/A: 1.6 MV V2 max: 136.4 cm/sec Ao V2 max: 128.0 cm/sec MV max P.4 mmHg MV dec slope: 488.7 cm/sec2 Ao max P.5 mmHg MV V2 mean: 98.1 cm/sec Ao V2 mean: 96.4 cm/sec MV mean P.2 mmHg Ao mean P.0 mmHg MV V2 VTI: 32.1 cm Ao V2 VTI: 28.2 cm LV V1 max: 102.6 cm/sec PA V2 max: 105.9 cm/sec TR max edenilson: 204.1 cm/sec LV V1 max P.2 mmHg TR max P.7 mmHg ECHO/Echo Complete Interpretation Summary Normal LV size. Left ventricular systolic function is normal. The estimated ejection fraction is 65 %. Status post mitral valve repair with annuloplasty ring. The global longitudinal strain is normal. The global longitudinal strain = -21. 6 % (normal). Ordering Physician: Raymundo Dawn Referring Physician: Ezra Arenas Performed By: Barbara Coelho, RDCS, RVT
--- OUTSIDE RECORDS SUMMARY | 2023-07-15 14:10 | XMS RPT_ITS | CCD ---
Author Name Unknown Address [address] [place] [address] Organization [facility] Care Team Providers Care Orchestra Musician Name Role Phone TATI JUAN MANUEL Unavailable Unavailable ALEXANDRIA MENDOZA Unavailable Unavailable SEYMOURJUAN MANUEL KHAN Unavailable Unavailable Allergies Allergy Classification Reported Allergen(s) Allergy Type Date of Onset Reaction(s) Facility (2 sources) acetaminophen / HYDROcodone; Translations: [HYDROCODONE-ACETA MINOPHEN] Drug Allergy 07-26-2009 [facility] Other [facility] Problems Problem Classification Problem Date Documented Da te Episodic/Chronic Other lower respiratory disease (2 sources) Shortness of breath; Translations: [Shortness of breath] Onset: 11-14-2017 Episodic Unclassified (1 source) Unknown / UNK(Unknown) Onset: 11-14-2017 Results Test Name Value Interpretation Reference Range Facil ity Encounters Encounter Date Encounter Type Care Provider Facility Start: 11-14-2017 End: 11-14-2017 Emergency department patient visit JUAN MANUEL DUFFY [facility] Payers Date Payer Category Payer Policy ID Unknown [id number] Summary Purpose Family History No Family History Records FoundNo Family History Records Found Advance Directives No Advanced Directives Records FoundNo Advanced Directives Records Found Additional Source Comments INFORMATION SOURCE (unrecogn ized section and content) DATE CREATED AUTHOR AUTHOR'S ORGANIZ ATION 12/11/2017 [facility] FOR RECORDS PERTAINING TO PATIENTS WHO ARE OR HAVE BEEN ENROLLED IN A CHEMICAL DEPENDENCY/SUBSTANCEABUSE PROGRAM, SOME INFORMATION MAY BE OMITTED. This clinical summary was aggregated from multiple sources. Caution should be exercised in using it in the provision of clinical care. This summary normalizes information from multiple sources, and as a consequence, information in this document may materially change the coding, format and clinical context of patient data. In addition, data may be omitted in some cases. CLINICAL DECISIONS SHOULD BE BASED ON THE PRIMARY CLINICAL RECORDS. [facility] provides no warranty or guarantee of the accuracy or completeness of information in this document.
== END | disposition home or self-care (01) ==
PROVIDERS: PCP Internal Medicine; Referring Provider Internal Medicine Cardiovascular Disease; Visit Provider Internal Medicine Cardiovascular Disease
DX: Z98.890 Other specified postprocedural states (principal); Z86.79 Personal history of other diseases of the circulatory system
CPT/HCPCS: 93306

== ENCOUNTER 2023-07-26 10:47 | Outpatient (RCR) | payer OTHER, SELFPAY ==
[2023-07-24 23:04] VITALS: BMI 18.8
[2023-07-26 11:40] LABS: Prothrombin Time (Protime)PT. 22.9 SECONDS (11.7-14.9)
== END 2023-08-22 18:00 | disposition home or self-care (01) ==
LOC: LAB 10:47
PROVIDERS: Internal Medicine Cardiovascular Disease; PCP Internal Medicine; Referring Provider Physician Assistant Medical; Visit Provider Physician Assistant Medical
DX: Z79.01 Long term (current) use of anticoagulants; Z86.79 Personal history of other diseases of the circulatory system
CPT/HCPCS: 36415; 85610

== ENCOUNTER 2023-09-20 09:52 | Outpatient (RCR) | payer OTHER, SELFPAY ==
[2023-08-23 02:51] VITALS: BMI 18.8
[2023-08-23 10:20] LABS: International Normalized Ratio 2.2; Prothrombin Time (Protime)PT. 24.5 SECONDS (11.7-14.9)
[2023-09-20 10:33] LABS: Prothrombin Time (Protime)PT. 22.9 SECONDS (11.7-14.9)
== END 2023-09-22 01:37 | disposition home or self-care (01) ==
LOC: LAB 09:52
PROVIDERS: PCP Internal Medicine; Referring Provider Physician Assistant Medical; Visit Provider Physician Assistant Medical
DX: Z86.79 Personal history of other diseases of the circulatory system; I48.92 Unspecified atrial flutter; Z98.890 Other specified postprocedural states; R00.2 Palpitations
CPT/HCPCS: 36415; 85610

== ENCOUNTER 2023-10-23 13:23 | Outpatient (RCR) | payer OTHER, SELFPAY ==
[2023-09-22 01:37] VITALS: BMI 18.8
[2023-10-23 14:58] LABS: International Normalized Ratio 2.3; Prothrombin Time (Protime)PT. 24.9 SECONDS (11.7-14.9)
== END 2023-10-23 18:00 | disposition home or self-care (01) ==
LOC: LAB 13:23
PROVIDERS: PCP Internal Medicine; Referring Provider Physician Assistant Medical; Visit Provider Physician Assistant Medical
DX: Z86.79 Personal history of other diseases of the circulatory system (principal); I48.92 Unspecified atrial flutter; Z98.890 Other specified postprocedural states; R00.2 Palpitations
CPT/HCPCS: 36415; 85610

== ENCOUNTER → 2023-11-12 | Outpatient (CLI) | payer OTHER, SELFPAY | END | disposition home or self-care (01) | LOC: LABSPEC 13:33 | PROVIDERS: PCP Internal Medicine; Visit Provider Nurse Practitioner | DX: J04.0 Acute laryngitis (principal) | CPT/HCPCS: 87631 ==

== ENCOUNTER 2023-12-02 15:11 | Outpatient (RCR) | payer OTHER, SELFPAY ==
[2023-11-25 09:09] VITALS: BMI 18.8
[2023-12-02 15:53] LABS: Absolute Lymphocyte Count 1.56 X10^3/uL (0.83-4.51); Absolute Neutrophil Count 3.7 X10^3/uL (2.0-7.7); Basophil# 0.04 X10^3/uL; Basophil% 0.7 % (0-1); Eosinophil# 0.08 X10^3/uL; Eosinophils% 1.4 % (0-5); Hematocrit 46.8 % (37-47); Hemoglobin 15.4 g/dL (12.0-15.0); Lymphocyte # 1.56 X10^3/ul (0.83-4.51); Lymphocyte % 26.5 % (19-41); Mean Corp Hgb Conc 32.9 g/dL (32-36); Mean Corpuscular Hgb 30.1 pg (27.0-32.0); Mean Corpuscular Volume 91.6 fL (81-99); Mean Platelet Vol. 9.4 fl (6.2-12.0); Monocyte# 0.49 X10^3/uL; Monocyte% 8.3 % (0-10); NRBC Flagged by Analyzer 0 % (0-5); Neutrophil # 3.71 X10^3/uL (2.7-7.7); Neutrophil % 62.9 % (47-70); Platelet Count 287 K/mm3 (150-450); RBC Distribution Width CV 12.7 % (11.6-14.6); RBC Distribution Width SD 42.8 fl (35.1-43.9); Red Blood Count 5.11 M/mm3 (4.2-5.4); White Blood Count 5.9 K/mm3 (4.4-11.0)
[2023-12-02 16:04] LABS: AST(SGOT) 17 U/L (15-37); Alanine Aminotransfer ALT/SGPT 20 U/L (13-56); Albumin, Serum 3.7 g/dL (3.2-5.0); Alkaline Phosphatase 72 U/L (45-117); Anion Gap 1 (5-15); BUN 10 mg/dL (7-18); BUN/Creat Ratio 11.9 RATIO (10-20); Calcium,Total 10.1 mg/dL (8.5-10.1); Chloride 109 mmol/L (98-107); Cholesterol 232 mg/dL (200); Creatinine, Serum 0.84 mg/dL (0.55-1.02); EST Glomerular Filtration Rate 80 mL/min (>60); Est Glom Filt Rate - Afr Amer 97 mL/min (>60); Globulin 3.7 g/dL (2.2-4.2); Glucose 105 mg/dL (74-106); High Density Lipoprotein 55 mg/dL; Potassium 4.9 mmol/L (3.5-5.1); Protein, Total 7.4 g/dL (6.4-8.2); Sodium Level 139 mmol/L (136-145); Triglycerides 186 mg/dL; Very Low Density Lipoprotein 37 mg/dL (5-40)
[2023-12-02 16:26] LABS: International Normalized Ratio 2.6; Prothrombin Time (Protime)PT. 27.4 SECONDS (11.7-14.9)
== END 2023-12-02 18:00 | disposition home or self-care (01) ==
LOC: LAB 15:11
PROVIDERS: Internal Medicine Cardiovascular Disease; PCP Internal Medicine; Referring Provider Physician Assistant Medical; Visit Provider Physician Assistant Medical
DX: Z86.79 Personal history of other diseases of the circulatory system (principal); I48.92 Unspecified atrial flutter; Z98.890 Other specified postprocedural states; R00.2 Palpitations; Z00.00 Encounter for general adult medical examination without abnormal findings
CPT/HCPCS: 36415; 80053; 80061; 85025; 85610

== ENCOUNTER 2024-01-10 12:05 | Outpatient (RCR) | payer OTHER, SELFPAY ==
[2023-12-23 04:11] VITALS: BMI 18.8
[2023-12-25 16:26] LABS: International Normalized Ratio 3.1; Prothrombin Time (Protime)PT. 31.9 SECONDS (11.7-14.9)
[2024-01-10 12:48] LABS: International Normalized Ratio 1.7; Prothrombin Time (Protime)PT. 19.8 SECONDS (11.7-14.9)
== END 2024-01-22 18:00 | disposition home or self-care (01) ==
LOC: LAB 12:05
PROVIDERS: PCP Internal Medicine; Referring Provider Physician Assistant Medical; Visit Provider Physician Assistant Medical
DX: Z86.79 Personal history of other diseases of the circulatory system (principal); I48.92 Unspecified atrial flutter; Z98.890 Other specified postprocedural states; R00.2 Palpitations
CPT/HCPCS: 36415; 85610

== ENCOUNTER 2024-02-06 16:39 | Outpatient (RCR) | payer OTHER, SELFPAY ==
[2024-01-22 23:08] VITALS: BMI 18.8
[2024-02-06 17:07] LABS: International Normalized Ratio 2.5; Prothrombin Time (Protime)PT. 26.9 SECONDS (11.7-14.9)
== END 2024-02-06 18:00 | disposition home or self-care (01) ==
LOC: LAB 16:39
PROVIDERS: PCP Internal Medicine; Referring Provider Physician Assistant Medical; Visit Provider Physician Assistant Medical
DX: Z86.79 Personal history of other diseases of the circulatory system (principal); I48.92 Unspecified atrial flutter; Z98.890 Other specified postprocedural states; R00.2 Palpitations
CPT/HCPCS: 36415; 85610

== ENCOUNTER 2024-03-20 09:57 | Outpatient (RCR) | payer OTHER, SELFPAY ==
[2024-02-23 03:10] VITALS: BMI 18.8
[2024-03-06 10:58] LABS: International Normalized Ratio 3.7; Prothrombin Time (Protime)PT. 36.1 SECONDS (11.7-14.9)
[2024-03-13 11:30] LABS: International Normalized Ratio 3.8; Prothrombin Time (Protime)PT. 37.2 SECONDS (11.7-14.9)
[2024-03-20 11:00] LABS: International Normalized Ratio 3.6; Prothrombin Time (Protime)PT. 35.6 SECONDS (11.7-14.9)
== END 2024-03-20 18:00 | disposition home or self-care (01) ==
LOC: LAB 09:57
PROVIDERS: PCP Internal Medicine; Referring Provider Physician Assistant Medical; Visit Provider Physician Assistant Medical
DX: Z86.79 Personal history of other diseases of the circulatory system (principal); I48.92 Unspecified atrial flutter; Z98.890 Other specified postprocedural states; R00.2 Palpitations
CPT/HCPCS: 36415; 85610

== ENCOUNTER 2024-04-10 12:22 | Outpatient (RCR) | payer OTHER, SELFPAY ==
[2024-03-24 04:44] VITALS: BMI 18.8
[2024-03-27 11:30] LABS: International Normalized Ratio 2.2; Prothrombin Time (Protime)PT. 24.3 SECONDS (11.7-14.9)
[2024-04-10 13:25] LABS: International Normalized Ratio 2.2; Prothrombin Time (Protime)PT. 24.1 SECONDS (11.7-14.9)
== END 2024-04-10 18:00 | disposition home or self-care (01) ==
LOC: LAB 12:22
PROVIDERS: PCP Internal Medicine; Referring Provider Physician Assistant Medical; Visit Provider Physician Assistant Medical
DX: Z86.79 Personal history of other diseases of the circulatory system (principal); I48.92 Unspecified atrial flutter; Z79.01 Long term (current) use of anticoagulants
CPT/HCPCS: 36415; 85610

== ENCOUNTER 2024-05-01 09:07 | Outpatient (RCR) | payer OTHER, SELFPAY ==
[2024-04-23 21:26] VITALS: BMI 18.8
[2024-05-01 10:07] LABS: International Normalized Ratio 2.4; Prothrombin Time (Protime)PT. 26.3 SECONDS (11.7-14.9)
== END 2024-05-23 18:00 | disposition home or self-care (01) ==
LOC: LAB 09:07
PROVIDERS: PCP Internal Medicine; Referring Provider Physician Assistant Medical; Visit Provider Physician Assistant Medical
DX: Z86.79 Personal history of other diseases of the circulatory system (principal); I48.92 Unspecified atrial flutter; Z98.890 Other specified postprocedural states; R00.2 Palpitations
CPT/HCPCS: 36415; 85610

== ENCOUNTER 2024-05-29 10:59 | Outpatient (RCR) | payer OTHER, SELFPAY ==
[2024-05-24 01:41] VITALS: BMI 18.8
[2024-05-29 11:57] LABS: International Normalized Ratio 2.6; Prothrombin Time (Protime)PT. 28.1 SECONDS (11.7-14.9)
== END 2024-05-29 18:00 | disposition home or self-care (01) ==
LOC: LAB 10:59
PROVIDERS: PCP Internal Medicine; Referring Provider Physician Assistant Medical; Visit Provider Physician Assistant Medical
DX: Z86.79 Personal history of other diseases of the circulatory system (principal); Z79.01 Long term (current) use of anticoagulants
CPT/HCPCS: 36415; 85610

== ENCOUNTER 2024-07-03 09:47 | Outpatient (RCR) | payer OTHER, SELFPAY ==
[2024-06-24 04:55] VITALS: BMI 18.8
[2024-07-03 11:17] LABS: International Normalized Ratio 2.8
[2024-07-03 12:10] LABS: Hematocrit 46.2 % (37-47); Hemoglobin 15.7 g/dL (12.0-15.0); Mean Corpuscular Hgb 30.7 pg (27.0-32.0); Mean Corpuscular Volume 90.2 fL (81-99); Mean Platelet Vol. 9.4 fl (6.2-12.0); Platelet Count 310 K/mm3 (150-450); RBC Distribution Width CV 12.8 % (11.6-14.6); RBC Distribution Width SD 42.3 fl (35.1-43.9); Red Blood Count 5.12 M/mm3 (4.2-5.4); White Blood Count 6.4 K/mm3 (4.4-11.0)
[2024-07-03 12:35] LABS: Cholesterol 246 mg/dL (200); High Density Lipoprotein 60 mg/dL; Triglycerides 160 mg/dL; Very Low Density Lipoprotein 32 mg/dL (5-40)
== END 2024-07-03 18:00 | disposition home or self-care (01) ==
LOC: LAB 09:47
PROVIDERS: Internal Medicine Cardiovascular Disease; PCP Internal Medicine; Referring Provider Physician Assistant Medical; Visit Provider Physician Assistant Medical
DX: Z86.79 Personal history of other diseases of the circulatory system (principal); Z79.01 Long term (current) use of anticoagulants; E78.5 Hyperlipidemia, unspecified
CPT/HCPCS: 36415; 80061; 85027; 85610

== ENCOUNTER → 2024-07-31 | Outpatient (CLI) | payer OTHER, SELFPAY ==
--- NOTE | 2024-07-31 09:44 | ECHOD_ITS ---
Reason For Study: AFIB Procedure This was a 2D Doppler, Color Flow transthoracic echocardiogram. Exam performed in department. Left Ventricle Normal LV size. Left ventricular systolic function is normal. The left ventricular ejection fraction is 60 %. No regional wall motion abnormalities noted. Right Ventricle Normal RV size. Normal systolic function. Atria Normal left atrium. Normal right atrium. Mitral Valve Moderate focal mitral valve calcification of the anterior leaflet. Status post mitral valve repair. Tricuspid Valve Normal tricuspid valve. Mild tricuspid valve insufficiency. Aortic Valve Trisinus/trileaflet aortic valve. Pulmonic Valve Normal pulmonic valve. Great Vessels Normal aortic root. The pulmonary artery is normal size. Pericardium/Pleural No pericardial effusion. MMode/2D Measurements & Calculations LVIDd: 3.7 cm IVSd: 0.69 cm Ao root diam: 2.9 cm LVIDs: 2.9 cm LVPWd: 0.97 cm RVDd: 3.0 cm FS: 22.7 % _ LAV(MOD-sp4): 24.7 ml LVAd ap4: 21.9 cm2 SV(MOD-sp4): 28.6 ml LVLd ap4: 8.1 cm SI(MOD-sp4): 15.3 ml/m2 EDV(MOD-sp4): 49.3 ml EDV(sp4-el): 50.1 ml LVAs ap4: 12.8 cm2 LVLs ap4: 6.5 cm ESV(MOD-sp4): 20.8 ml ESV(sp4-el): 21.5 ml EF(MOD-sp4): 57.9 % EF(sp4-el): 57.1 % _ SV(sp4-el): 28.6 ml LA A4 area: 12.6 cm2 RA A4 area: 13.8 cm2 Time Measurements MV dec time: 0.24 sec Doppler Measurements & Calculations MV E max philip: 133.5 cm/sec MV V2 max: 141.6 cm/sec MV A max philip: 82.7 cm/sec MV max P.0 mmHg MV dec slope: 555.1 cm/sec2 MV E/A: 1.6 MV V2 mean: 80.2 cm/sec MV mean P.0 mmHg MV V2 VTI: 38.2 cm _ Ao V2 max: 143.5 cm/sec LV V1 max: 121.6 cm/sec Ao max P.2 mmHg LV V1 max P.9 mmHg Ao V2 mean: 105.4 cm/sec LV V1 mean P.7 mmHg Ao mean P.0 mmHg LV V1 mean: 91.3 cm/sec Ao V2 VTI: 33.6 cm LV V1 VTI: 27.3 cm AV (velocity ratio): 0.81 ECHO/Echo Complete Interpretation Summary Normal LV size. Left ventricular systolic function is normal. The left ventricular ejection fraction is 60 %. Status post mitral valve repair. Ordering Physician: Franklin Shah Referring Physician: Franklin Shah Performed By: Sandi Birch RCS
== END | disposition home or self-care (01) ==
LOC: CVS 09:44
PROVIDERS: PCP Internal Medicine; Referring Provider Internal Medicine Cardiovascular Disease; Visit Provider Internal Medicine Cardiovascular Disease
DX: Z98.890 Other specified postprocedural states (principal)
CPT/HCPCS: 93306

== ENCOUNTER 2024-08-14 12:24 | Outpatient (RCR) | payer OTHER, SELFPAY ==
[2024-07-24 21:36] VITALS: BMI 18.8
[2024-07-31 11:28] LABS: International Normalized Ratio 3.3; Prothrombin Time (Protime)PT. 34.3 SECONDS (11.7-14.9)
[2024-08-14 12:54] LABS: International Normalized Ratio 3.2; Prothrombin Time (Protime)PT. 33.6 SECONDS (11.7-14.9)
== END 2024-08-21 18:00 | disposition home or self-care (01) ==
LOC: LAB 12:24
PROVIDERS: PCP Internal Medicine; Referring Provider Physician Assistant Medical; Visit Provider Physician Assistant Medical
DX: Z86.79 Personal history of other diseases of the circulatory system (principal); Z79.01 Long term (current) use of anticoagulants
CPT/HCPCS: 36415; 85610

== ENCOUNTER 2024-09-16 12:39 | Outpatient (RCR) | payer OTHER, SELFPAY ==
[2024-08-22 07:43] VITALS: BMI 18.8
[2024-08-28 07:03] LABS: International Normalized Ratio 2.6; Prothrombin Time (Protime)PT. 28.2 SECONDS (11.7-14.9)
[2024-08-28 07:17] LABS: AST(SGOT) 22 U/L (<=31); Alanine Aminotransfer ALT/SGPT 16 U/L (<=34); Albumin, Serum 4.3 g/dL (3.5-5.0); Alkaline Phosphatase 64 U/L (35-104); Bilirubin, Direct 0.29 mg/dL (0.00-0.30); Cholesterol 147 mg/dL (<=200); Globulin 2.7 g/dL (2.2-4.2); High Density Lipoprotein 58 mg/dL; Low Density Lipoprotein Calc. 66 mg/dL; Protein, Total 6.9 g/dL (5.9-8.4); Total Bilirubin 0.65 mg/dL (0.00-1.30); Triglycerides 117 mg/dL; Very Low Density Lipoprotein 23 mg/dL (5-40); cholesterol:hdl ratio screen 2.54
[2024-09-16 13:39] LABS: International Normalized Ratio 2.7; Prothrombin Time (Protime)PT. 28.8 SECONDS (11.7-14.9)
== END 2024-09-16 18:00 | disposition home or self-care (01) ==
LOC: LAB 12:39
PROVIDERS: Nurse Practitioner Family; PCP Internal Medicine; Referring Provider Physician Assistant Medical; Visit Provider Physician Assistant Medical
DX: Z86.79 Personal history of other diseases of the circulatory system (principal); Z79.01 Long term (current) use of anticoagulants; E78.00 Pure hypercholesterolemia, unspecified
CPT/HCPCS: 36415; 80061; 80076; 85610

== ENCOUNTER 2024-10-16 12:35 | Outpatient (RCR) | payer OTHER, SELFPAY ==
[2024-09-21 22:55] VITALS: BMI 18.8
[2024-10-16 13:21] LABS: Prothrombin Time (Protime)PT. 23.2 SECONDS (11.7-14.9)
== END 2024-10-21 18:00 | disposition home or self-care (01) ==
LOC: LAB 12:35
PROVIDERS: PCP Internal Medicine; Referring Provider Physician Assistant Medical; Visit Provider Physician Assistant Medical
DX: Z79.01 Long term (current) use of anticoagulants (principal); Z86.79 Personal history of other diseases of the circulatory system
CPT/HCPCS: 36415; 85610

== ENCOUNTER 2024-11-06 12:43 | Outpatient (RCR) | payer OTHER, SELFPAY ==
[2024-10-21 22:17] VITALS: BMI 18.8
[2024-11-06 13:28] LABS: International Normalized Ratio 2.2; Prothrombin Time (Protime)PT. 25.1 SECONDS (11.7-14.9)
== END 2024-11-06 18:00 | disposition home or self-care (01) ==
LOC: LAB 12:43
PROVIDERS: PCP Internal Medicine; Referring Provider Physician Assistant Medical; Visit Provider Physician Assistant Medical
DX: Z86.79 Personal history of other diseases of the circulatory system (principal); Z79.01 Long term (current) use of anticoagulants
CPT/HCPCS: 36415; 85610

== ENCOUNTER 2024-12-02 11:40 | Outpatient (RCR) | payer OTHER, SELFPAY ==
[2024-11-22 04:46] VITALS: BMI 18.8
[2024-12-02 12:58] LABS: International Normalized Ratio 2.5; Prothrombin Time (Protime)PT. 27.3 SECONDS (11.7-14.9)
[2024-12-02 15:58] LABS: Absolute Neutrophil Count 2.4 X10^3/uL (2.0-7.7); Basophil# 0.05 X10^3/uL; Basophil% 1.1 % (0-1); Eosinophil# 0.12 X10^3/uL; Eosinophils% 2.5 % (0-5); Hematocrit 47.4 % (37-47); Hemoglobin 15.6 g/dL (12.0-15.0); Mean Corp Hgb Conc 32.9 g/dL (32-36); Mean Corpuscular Hgb 30.5 pg (27.0-32.0); Mean Corpuscular Volume 92.6 fL (81-99); Mean Platelet Vol. 9.7 fl (6.2-12.0); Monocyte# 0.41 X10^3/uL; Monocyte% 8.7 % (0-10); NRBC Flagged by Analyzer 0 % (0-5); Neutrophil # 2.43 X10^3/uL (2.7-7.7); Neutrophil % 51.5 % (47-70); Platelet Count 292 K/mm3 (150-450); RBC Distribution Width CV 13.2 % (11.6-14.6); RBC Distribution Width SD 44.6 fl (35.1-43.9); Red Blood Count 5.12 M/mm3 (4.2-5.4); White Blood Count 4.7 K/mm3 (4.4-11.0)
[2024-12-02 17:29] LABS: Anion Gap 11 (5-15); BUN 12 mg/dL (4-19); BUN/Creat Ratio 15.3 RATIO (10-20); Carbon Dioxide 24.9 mmol/L (21.0-32.0); Chloride 106 mmol/L (98-108); Creatinine, Serum 0.81 mg/dL (0.70-1.20); EST Glomerular Filtration Rate 95 (>60); Glucose 82 mg/dL (70-99); Potassium 5.1 mmol/L (3.3-5.1); Sodium Level 143 mmol/L (133-145)
== END 2024-12-21 23:59 ==
LOC: BIMLAB 11:40
PROVIDERS: PCP Internal Medicine; Referring Provider Physician Assistant Medical; Visit Provider Physician Assistant Medical
DX: Z86.79 Personal history of other diseases of the circulatory system (principal); Z79.01 Long term (current) use of anticoagulants; Z00.00 Encounter for general adult medical examination without abnormal findings
CPT/HCPCS: 36415; 80048; 85025; 85610

== ENCOUNTER 2024-12-31 10:20 | Outpatient (RCR) | payer OTHER, SELFPAY ==
[2024-12-31 11:30] LABS: Prothrombin Time (Protime)PT. 31.4 SECONDS (11.7-14.9)
== END 2025-01-21 23:59 ==
LOC: BIMLAB 10:20
PROVIDERS: PCP Internal Medicine; Referring Provider Physician Assistant Medical; Visit Provider Physician Assistant Medical
DX: Z86.79 Personal history of other diseases of the circulatory system (principal); Z79.01 Long term (current) use of anticoagulants
CPT/HCPCS: 36415; 85610

== ENCOUNTER → 2025-01-13 | Outpatient (CLI) | payer OTHER, SELFPAY ==
--- NOTE | 2025-01-13 10:45 | BI_ITS ---
EXAM: SCRN MAMM (CAD)W/HUNG BILAT DATE: 01/13/2025 CLINICAL HISTORY: F, Age 40 y/o , BREAST CANCER SCREENING TECHNIQUE: SCRN MAMM (CAD)W/HUNG BILAT COMPARISON: Baseline examination, no priors. FINDINGS: TISSUE DENSITY: The breasts are extremely dense, which lowers the sensitivity of mammography. The mammogram demonstrates that the patient has dense breasts. Supplemental screening with whole breast ultrasound or MRI may be considered for further evaluation. Bilateral Breast Mammographic Findings: No significant masses, calcifications or other abnormalities are identified. BI/SCRN MAMM (CAD)W/HUNG BILAT IMPRESSION: There is no mammographic evidence of malignancy. OVERALL FINAL ASSESSMENT BI-RADS 1: NEGATIVE. RECOMMENDATION: Routine annual follow-up in 1 Year A letter with findings and recommendations will be mailed to the patient. Reading Location: [id number]
== END | disposition home or self-care (01) ==
LOC: OPBI 10:19
PROVIDERS: PCP Internal Medicine; Referring Provider Internal Medicine; Visit Provider Internal Medicine
DX: Z12.31 Encounter for screening mammogram for malignant neoplasm of breast (principal)
CPT/HCPCS: 77063; 77067

== ENCOUNTER 2025-01-29 09:31 | Outpatient (RCR) | payer OTHER, SELFPAY ==
[2025-01-29 10:30] LABS: Prothrombin Time (Protime)PT. 31.4 SECONDS (11.7-14.9)
== END 2025-01-29 18:00 | disposition home or self-care (01) ==
LOC: LAB 09:31
PROVIDERS: PCP Internal Medicine; Referring Provider Physician Assistant Medical; Visit Provider Physician Assistant Medical
DX: Z86.79 Personal history of other diseases of the circulatory system (principal); Z79.01 Long term (current) use of anticoagulants
CPT/HCPCS: 36415; 85610

== ENCOUNTER 2025-02-20 15:54 | Emergency (ER) | payer OTHER, SELFPAY ==
[2025-02-20 15:55] VITALS: BP 142/117; PULSE 71; RESP 16; TEMP 36.8; O2SAT 100
--- OUTSIDE RECORDS SUMMARY | 2025-02-20 16:19 | XMS RPT_ITS | CCD ---
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 Ezra Arenas Primary Care Provider 1(33 0) Dr. Ezra Arenas Attending Provider 1(330)2 Dr. Ezra Arenas Referring Provider 1(330)2 ERWIN Deras Attending Provider UnavailDr. Ezra Hernandes Primary Care Provider 1(33 0) Dr. Ezra Arenas Referring Provider 1(330)2 Dr. Gene Terrell Attending Provider 1(330) Dr. Ezra Arenas Primary Care Provider 1(33 0) Dr. Ezra Arenas Referring Provider 1(330)2 ERWIN Deras Attending Provider Dr. Gene Hunt Attending Provider 1(330) Dr. Ezra Arenas Primary Care Provider 1(33 0) Dr. Ezra Arenas Referring Provider 1(330)2 Dr. Ezra Arenas Primary Care Provider 1(33 0) Dr. Ezra Arenas Referring Provider 1(330)2 Dr. Raymundo Dawn Attending Provider 1(330)- Ijeoma Fraser Attending Provider Unavailable Dr. Ezra Arenas Attending Provider 1(330)2 Dr. Ezra Arenas Primary Care Provider 1(33 0) Deepa, Dr. Munguia Referring Provider 1(330)2 ERWIN Hoover Attending Provider Dr. Ezra Arenas Primary Care Provider 1(33 0) Deepa, Dr. Munguia Referring Provider 1(330)2 ERWIN Hoover Attending Provider Dr. Raymundo Dawn Attending Provider [phone] KRISTI Cheney Attending Provider Unavail ryan Arenas, Dr. Munguia Primary Care Provider 1(33 0) Deepa, Dr. Munguia Referring Provider 1(330)2 Deepa, Dr. Munguia Primary Care Provider 1(33 0) Deepa, Dr. Munguia Referring Provider 1(330)2 Dr. Raymundo Dawn Attending Provider [phone])- [phone] KRISTI Cheney Attending Provider Unavail ryan Arenas MD, Dr. Munguia Primary Care Provider Deepa BOWLING, Dr. Munguia Other Provider 1(330)2 Miri Miranda Attending Provider 1(33 0) Miri Miranda Referring Provider 1(33 0) Caty Winter Other Provider 1(330) Dr. Franklin Shah MD Other Provider 1(330) Deepa BOWLING, Dr. Munguia Referring Provider 1(33 0) Dr. Franklin Shah MD Attending Provider Dr. Franklin Shah MD Referring Provider Nereyda BOWLING, Dr. Fonseca Attending Provider 1(330) Deepa BOWLING, Dr. Munguai Primary Care Provider Dr. Franklin Shah MD Attending Provider Deepa BOWLING, Dr. Munguia Other Provider 1(330)2 Miri Miranda Attending Provider 1(33 0) Miri Miranda Referring Provider 1(33 0) Caty Winter Other Provider [phone] Franklin Shah MD Other Provider 1(330) Deepa BOWLING, Dr. Munguia Primary Care Provider Deepa BOWLING, Dr. Munguia Attending Provider 1(33 0) Deepa BOWLING, Dr. Munguia Referring Provider 1(33 0) Deepa BOWLING, Dr. Munguia Primary Care Provider Deepa BOWLING, Dr. Munguia Other Provider 1(330)2 Miri Miranda Attending Provider 1(33 0) Miri Miranda Referring Provider 1(33 0) Caty Winter Other Provider [phone] Alyssa BOWLING, Dr. Reid Other Provider 1(330) Deepa BOWLING, Dr. Munguia Primary Care Provider Deepa BOWLING, Dr. Munguia Other Provider 1(330)2 Miri Miranda Attending Provider 1(33 0) Miri Miranda Referring Provider 1(33 0) Caty Winter Other Provider [phone] Alyssa BOWLING, Dr. Reid Other Provider [phone] Oleghe, Efewongbe Primary Care Unavailable Miri Miranda Referring Unavail able Michele SENIOR CLINICIAN, Caty Consulting Unavailable Miri Miranda Attending Unavail able Oleghe, Efewongbe Consulting Unavailable Oleghe, Efewongbe Primary Care Unavailable Miri Miranda Referring Unavail able Miri Miranda Attending Unavail able Michele SENIOR CLINICIAN, Caty Consulting Unavailable Oleghe, Efewongbe Consulting Unavailable Franklin Shah Consulting Unavailable Oleghe, Efewongbe Primary Care Unavailable Miri Miranda Attending Unavail able Miri Miranda Referring Unavail able Bautista SENIOR CLINICIAN, Caty Consulting Unavailable Oleghe, Efewongbe Consulting Unavailable Shah, Franklin Consulting Unavailable Oleghe, Efewongbe Primary Care Unavailable Miri Miranda Referring Unavail able Miri Miranda Attending Unavail able Bautista SENIOR CLINICIAN, Caty Consulting Unavailable Oleghe, Efewongbe Consulting Unavailable Miri Miranda Referring Unavail able Bautista SENIOR CLINICIAN, Caty Consulting Unavailable Oleghe, Efewongbe Primary Care Unavailable Miri Miranda Attending Unavail able Oleghe, Efewongbe Consulting Unavailable Shah, Franklin Consulting Unavailable Oleghe, Efewongbe Primary Care Unavailable Franklin Shah Attending Unavailable Alyssa, Franklin Referring Unavailable Oleghe, Efewongbe Primary Care Unavailable Miri Miranda Attending Unavail able Miri Miranda Referring Unavail able Oleghe, Efewongbe Primary Care Unavailable Miri Miranda Referring Unavail able Miri Miranda Attending Unavail able Oleghe, Efewongbe Primary Care Unavailable Miri Miranda Attending Unavail able Miri Miranda Referring Unavail able Michele SENIOR CLINICIAN, Caty Consulting Unavailable Oleghe, Efewongbe Consulting Unavailable Shah, Franklin Consulting Unavailable Oleghe, Efewongbe Primary Care Unavailable Raymundo Dawn Attending Unavailable Oleghe, Efewongbe Primary Care Unavailable Miri Miranda Attending Unavail able Miri Miranda Referring Unavail able Bautista SENIOR CLINICIAN, Caty Consulting Unavailable Oleghe, Efewongbe Consulting Unavailable Shah, Franklin Consulting Unavailable Oleghe, Efewongbe Primary Care Unavailable Miri Miranda Attending Unavail able Miri Miranda Referring Unavail able Bautista SENIOR CLINICIAN, Caty Consulting Unavailable Oleghe, Efewongbe Consulting Unavailable Shah, Franklin Consulting Unavailable Oleghe, Efewongbe Primary Care Unavailable Miri Miranda Referring Unavail able Miri Miranda Attending Unavail able Bautista SENIOR CLINICIAN, Caty Consulting Unavailable Oleghe, Efewongbe Consulting Unavailable Oleghe, Efewongbe Primary Care Unavailable Miri Miranda Referring Unavail able Miri Miranda Attending Unavail able Bautista SENIOR CLINICIAN, Caty Consulting Unavailable Oleghe, Efewongbe Consulting Unavailable Oleghe, Efewongbe Primary Care Unavailable Oleghe, Efewongbe Referring Unavailable Oleghe, Efewongbe Attending Unavailable Oleghe, Efewongbe Primary Care Unavailable Oleghe, Efewongbe Referring Unavailable Miri Miranda Attending Unavail able Oleghe, Efewongbe Referring Unavailable Oleghe, Efewongbe Primary Care Unavailable Franklin Shah Attending Unavailable Oleghe, Efewongbe Primary Care Unavailable Oleghe, Efewongbe Referring Unavailable Oleghe, Efewongbe Attending Unavailable Oleghe, Efewongbe Primary Care Unavailable Miri Miranda Referring Unavail able Michele SENIOR CLINICIAN, Caty Consulting Unavailable Miri Miranda Attending Unavail able Oleghe, Efewongbe Consulting Unavailable Allergies Allergy Classification Reported Allergen(s) Allergy Type Date of Onset Reaction(s) Facility (2 sources) acetaminophen / HYDROcodone; Translations: [HYDROCODONE-ACET AMINOPHEN] Drug Allergy 0 [facility] Repository (20 sources) HYDROcodone Drug Allergy 1 nausea [facility] Comment on above: intolerance (19 sources) caterpillars Propensity to adverse reactions 1 unknown [facility] (16 sources) Environmental Allergies: Uncoded; Translations: [Environmental Allergies: Uncoded] Allergy to substance 3 NEEDS FOLLOW-UP [facility] Comment on above: reports allergy to c aterpillars (7 sources) Amoxicillin Drug Allergy 5 Rash, hives (needs Clinda for premed) [facility] (1 source) Amoxicillin Drug Allergy 5 [facility] Repository (1 source) HYDROcodone Drug Allergy 5 [facility] Repository Medications Current Medications Medication Drug Class(es) Dates Sig (Normalized) Sig (Original) biotin 10 mg oral tablet (18 sources) Start: 11-23-2022 take 1 tablet by mouth once daily Biotin 10 mg tablet Active 10 mg PO DAILY November 23, 2022 12:00am Multivitamin capsule (7 sources) Start: 11-26-2019 Multivitamin capsule Active 1 NMA PO DAILY November 26, 2019 12:00am Multivitamin preparation (20 sources) Start: 11-26-2019 take 1 capsule by mouth once daily multivitamin Active 1 CAP PO DAILY November 26, 2019 3:02pm Start: 11-26-2019 take 1 capsule by [facility] once daily multivitamin Active 1 CAP PO DAILY November 25, 2019 11:00pm Start: 11-26-2019 take 1 capsule by [facility] once daily multivitamin Active 1 CAP PO DAILY November 26, 2019 12:00am Completed/Discontinued Medications Medication Drug Class(es) Dates Sig (Normalized) Sig (Original) [id number] 200 actuat albuterol 0.09 mg/actuat metered dose inhaler (20 sources) beta2-Adrenergic Agonist Start: 12-03-2018 End: 08-27-2019 Albuterol Sulfate (Proair Hfa) 90 mcg/actuation HFA aerosol inhaler Discontinued 2 NMA INHALATION Q4H as needed for SOB, wheeaing or cough 1 3 December 03, 2018 12:00am August 27, 2019 4:21pm Start: 12-03-2018 End: 08-27-2019 take 1 puff(s) by inhalation every four hours Albuterol Sulfate (Proair Hfa) 90 mcg/actuation HFA aerosol inhaler Discontinued 2 PUFF INHALATION Q4H 1 December 03, 2018 12:00am August 27, 2019 4:21pm amoxicillin 500 mg oral tablet (8 sources) Penicillin-class Antibacterial Start: 09-10-2023 End: 11-22-2023 take 4 tablets by mouth once as needed Amoxicillin 500 mg tablet Discontinued 2000 mg PO ONCE as needed for dental 4 3 September 10, 2023 12:00am November 22, 2023 3:37pm 30-60 minutes prior to dental procedure as needed; Start: 09-10-2023 Amoxicillin Ac tive 2000 MG PO ONCE 4 September 10, 2023 12:00am 30-60 minutes prior to dental procedure as needed; aspirin 81 mg delayed release oral tablet (20 sources) Platelet Aggregation Inhibitor, Nonsteroidal Anti-inflammatory Drug Start: 08-26-2019 End: 09-01-2019 take 1 tablet by mouth once daily Aspirin (Adult Aspirin Regimen) 81 mg tablet,delayed release (DR/EC) Discontinued 81 mg PO DAILY August 26, 2019 1:00am September 01, 2019 2:43pm azithromycin 500 mg oral tablet (20 sources) Macrolide Antimicrobial Start: 11-22-2023 End: 12-31-2024 take 1 tablet by mouth every hour Azithromycin (Zithromax) 500 mg tablet Discontinued 500 mg PO .COMPLEX 3 July 31, 2024 10:14am December 31, 2024 10:51am 500 mg orally 1 hour prior to dental appt for prophylaxis; benzonatate 200 mg oral capsule (20 sources) Non-narcotic Antitussive Start: 04-15-2023 End: 11-12-2023 take 1 capsule by mouth three times daily as needed for cough Benzonatate 200 mg capsule Discontinued 200 mg PO THREE TIMES A DAY as needed for cough June 28, 2023 10:56am November 12, 2023 1:01pm Start: 03-23-2022 End: 04-06-2022 take 1 capsule by mouth three times daily as needed for cough Benzonatate 200 mg capsule Discontinued 200 mg PO THREE TIMES A DAY as needed for cough 30 March 23, 2022 12:00am April 06, 2022 1:03pm 120 actuat budesonide 0.08 mg/actuat / formoterol fumarate 0.0045 mg/actuat metered dose inhaler (20 sources) Corticosteroid, beta2-Adrenergic Agonist Start: 08-26-2019 End: 08-27-2019 Budesonide-Formoterol (Symbicort) 80-4.5 mcg/actuation HFA aerosol inhaler Discontinued 2 NMA INHALATION Q12H August 26, 2019 1:00am August 27, 2019 4:21pm Start: 08-26-2019 End: 08-27-2019 take 1 puff(s) by inhalation every twelve hours Budesonide-Formoterol (Symbicort) 80-4.5 mcg/actuation HFA aerosol inhaler Discontinued 2 PUFF INHALATION Q12H August 26, 2019 1:00am August 27, 2019 4:21pm carvedilol 3.125 mg oral tablet (20 sources) alpha-Adrenergic Frank, beta-Adrenergic Frank Start: 08-26-2019 End: 08-27-2019 take 1 tablet by mouth twice daily at mealtime Carvedilol 3.125 mg tablet Discontinued 3.125 mg PO TWICE A DAY August 26, 2019 1:00am August 27, 2019 4:22pm must administer with a meal/food cetirizine hydrochloride 10 mg oral capsule (20 sources) Histamine-1 Receptor Antagonist Start: 08-26-2019 End: 08-27-2019 take 1 capsule by mouth once daily Cetirizine (Zyrtec) 10 mg capsule Discontinued 10 mg PO DAILY August 26, 2019 1:00am August 27, 2019 4:22pm docusate sodium 100 mg oral capsule (20 sources) Start: 08-26-2019 End: 08-27-2019 take 1 capsule by mouth once daily Docusate Sodium 100 mg capsule Discontinued 100 mg PO DAILY August 26, 2019 1:00am August 27, 2019 4:22pm fluticasone propionate 0.05 mg/actuat metered dose nasal spray (20 sources) Corticosteroid Start: 08-26-2019 End: 08-27-2019 take 50 ug nasal route once daily Fluticasone Propionate (Flonase Allergy Relief) 50 mcg/actuation spray,suspension Discontinued 2 NMA INTRANASAL DAILY August 26, 2019 1:00am August 27, 2019 4:22pm administer into each nostril Start: 08-26-2019 End: 08-27-2019 take 1 spray(s) nasal route once daily Fluticasone Propionate (Flonase Allergy Relief) 50 mcg/actuation spray,suspension Discontinued 2 SPRAY INTRANASAL DAILY August 26, 2019 1:00am August 27, 2019 4:22pm administer into each nostril furosemide 20 mg oral tablet (20 sources) Loop Diuretic Start: 08-26-2019 End: 08-27-2019 take 1 tablet by mouth once daily Furosemide 20 mg tablet Discontinued 20 mg PO DAILY August 26, 2019 1:00am August 27, 2019 4:22pm lidocaine 0.05 mg/mg medicated patch (20 sources) Antiarrhythmic, Amide Local Anesthetic Start: 08-26-2019 End: 08-27-2019 Lidocaine 5 % adhesive patch,medicated Discontinued 1 NMA TOPICAL DAILY August 26, 2019 1:00am August 27, 2019 4:22pm leave on most painful area for up to 12 hrs methylPREDNISolone 4 mg oral tablet (20 sources) Corticosteroid Start: 04-15-2023 End: 06-28-2023 take 1 tablet by mouth once Methylprednisolone (Medrol (Greg)) 4 mg tablets,dose pack Discontinued 0 PO per package directions April 15, 2023 12:00am June 28, 2023 10:57am PO PER PKG DIR Start: 07-27-2020 End: 10-18-2020 take 1 tablet by mouth once Methylprednisolone (Medrol (Greg)) 4 mg tablets,dose pack Discontinued 0 PO per package directions 21 0 September 23, 2020 12:00am October 18, 2020 2:03pm PO PER PKG DIR metoprolol tartrate 25 mg oral tablet (20 sources) beta-Adrenergic Frank Start: 04-14-2020 End: 04-01-2024 take 1 tablet by mouth twice daily Metoprolol Tartrate 25 mg tablet Discontinued 25 mg PO TWICE A DAY March 17, 2023 10:13am April 01, 2024 11:39am Multivitamin-Iron -Folic Acid (Centrum) 18-400 mg-mcg tablet (20 sources) Start: 08-26-2019 End: 08-27-2019 take 1 tablet by mouth once daily Multivitamin-Iron- Folic Acid (Centrum) 18-400 mg-mcg tablet Discontinued 1 TABLET PO DAILY August 26, 2019 12:11pm August 27, 2019 4:23pm Start: 08-26-2019 End: 08-27-2019 Uqqefpdnfrcf-Xuzt-Ptwqp Acid (Centrum) 18-400 mg-mcg tablet Discontinued 1 {tbl} PO DAILY August 26, 2019 1:00am August 27, 2019 4:23pm Start: 08-26-2019 End: 08-27-2019 take 1 tablet by mouth once daily Qiylenqbzthg-Twhm-Yrsmo Acid (Centrum) 18-400 mg-mcg tablet Discontinued 1 TABLET PO DAILY August 26, 2019 12:00am August 27, 2019 3:23pm Start: 08-26-2019 End: 08-27-2019 take 1 tablet by mouth once daily Cozutultzsdy-Lbvj-Orkjy Acid (Centrum) 18-400 mg-mcg tablet Discontinued 1 TABLET PO DAILY August 26, 2019 1:00am August 27, 2019 4:23pm omeprazole 40 mg delayed release oral capsule (20 sources) Proton Pump Inhibitor Start: 06-09-2019 End: 11-26-2019 take 1 capsule by mouth once daily Omeprazole 40 mg capsule,delayed release(DR/EC) Discontinued 40 mg PO DAILY 30 June 09, 2019 1:00am November 26, 2019 3:01pm potassium chloride 10 meq extended release oral capsule (20 sources) Start: 08-26-2019 End: 08-27-2019 take 1 capsule by mouth once daily Potassium Chloride 10 mEq capsule, extended release Discontinued 10 meq PO DAILY August 26, 2019 1:00am August 27, 2019 4:23pm rivaroxaban 15 mg oral tablet (20 sources) Factor Xa Inhibitor Start: 04-14-2020 End: 04-25-2020 take 1 tablet by mouth once daily Rivaroxaban 15 MG tablet Discontinued 15 mg PO DAILY 30 0 April 14, 2020 12:00am April 25, 2020 6:15pm rosuvastatin calcium 5 mg oral tablet (19 sources) HMG-CoA Reductase Inhibitor Start: 07-03-2024 End: 10-05-2024 take 1 tablet by mouth once daily Rosuvastatin (Crestor) 5 mg tablet Discontinued 5 mg PO DAILY 90 3 October 05, 2024 2:46pm October 05, 2024 2:47pm sennosides, mcfp 8.6 mg oral capsule (20 sources) Start: 08-26-2019 End: 08-27-2019 take 1 capsule by mouth twice daily as needed Sennosides 8.6 mg capsule Discontinued 8.6 mg PO TWICE A DAY as needed August 26, 2019 1:00am August 27, 2019 4:23pm terbinafine 250 mg oral tablet (20 sources) Allylamine Antifungal Start: 09-23-2020 End: 11-28-2020 take 1 tablet by mouth once daily Terbinafine Hcl 250 mg tablet Discontinued 250 mg PO DAILY September 23, 2020 12:00am November 28, 2020 2:59pm warfarin sodium 2.5 mg oral tablet (20 sources) Vitamin K Antagonist Start: 05-27-2023 End: 05-28-2023 Warfarin Active 2.5 MG PO .COMPLEX 60 May 28, 2023 9:47am Take 5mg daily (with extra 2.5 mg on Sun/Mon//Sat/Sat to equal 7.5mg); or use as directed Start: 07-31-2022 End: 10-16-2024 take 1 tablet by mouth once daily Warfarin 5 mg tablet Discontinued 5 mg PO DAILY 90 3 May 28, 2023 9:47am October 16, 2024 10:18am Take 5mg daily; or use as directed Please contact the information source for Protocol details. Start: 04-06-2022 End: 07-31-2022 Warfarin 5 mg tablet Discont inued 5 mg PO .COMPLEX 90 4 July 30, 2022 5:03pm July 31, 2022 8:00pm take 7.5mg on Saturday and 5mg the other days of the week or as directed Please contact the information source for Protocol details. Start: 07-06-2020 End: 04-01-2024 Warfarin 2.5 mg tablet Disco ntinued 2.5 mg PO .COMPLEX 60 3 May 28, 2023 9:47am April 01, 2024 11:38am Take 5mg daily (with extra 2.5 mg on Sun/Mon/Tues/Fri/Sat to equal 7.5mg); or use as directed Please contact the information source for Protocol details. Start: 07-06-2020 End: 07-31-2022 Warfarin Discontinued 2.5 MG PO .COMPLEX 72 July 30, 2022 5:02pm July 31, 2022 8:00pm Sun : 5 mg, Mon: 7.5 mg. Tue:7.5 mg, Wed: 7.5 mg, Thurs: 7.5 mg. Fri: 7.5 mg, Sat: 7.5 mg Start: 07-06-2020 End: 04-06-2022 Warfarin 5 mg tablet Discont inued 5 mg PO .COMPLEX 90 3 December 08, 2020 3:12pm March 27, 2021 3:47pm Sun : 5 mg, Mon: 7.5 mg. Tue:7.5 mg, Wed: 5 mg, Thurs: 5 mg. Fri: 5 mg, Sat: 5 mg Please contact the information source for Protocol details. Start: 04-25-2020 End: 07-06-2020 take 1 tablet by mouth every other day Warfarin 2.5 mg tablet Discontinued 2.5 mg PO every other day 45 3 April 25, 2020 1:00am July 06, 2020 6:04pm on even numbered days Please contact the information source for Protocol details. Start: 04-25-2020 End: 04-06-2022 take 1 tablet by mouth every other day Warfarin 5 mg tablet Discontinued 5 mg PO every other day 45 April 25, 2020 1:00am July 06, 2020 6:04pm on odd numbered days Please contact the information source for Protocol details. Problems Active Problems Problem Classification Problem Date Documented Da te Episodic/Chronic Acute bronchitis (19 sources) Acute bronchitis; Translations: [Acute bronchitis, unspecified] 04-15-2023 Episodic Cardiac and circulatory congenital anomalies (20 sources) Patent ductus arteriosus; Translations: [Patent ductus arteriosus] 04-14-2020 Chronic Cardiac dysrhythmias (20 sources) Atrial fibrillation; Translations: [Unspecified atrial fibrillation] Onset: 07-03-2024 04-14-2020 Chronic Disorders of lipid metabolism (12 sources) Hyperlipidemia; Translations: [Hyperlipidemia, unspecified] Onset: 07-24-2024 07-03-2024 Chronic Heart valve disorders (9 sources) Mitral valve disorder; Translations: [Rheumatic mitral valve disease, unspecified] 07-03-2024 Chronic Other aftercare (20 sources) Long-term current use of anticoagulant; Translations: [custodial (current) use of anticoagulants] 05-16-2020 Episodic Other aftercare (2 sources) 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; Translations: [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] Onset: 07-24-2024 Episodic Other circulatory disease (20 sources) H/O: atrial fibrillation; Translations: [Personal history of other diseases of the circulatory system] 04-14-2020 Episodic Other congenital anomalies (20 sources) Pectus excavatum; Translations: [Pectus excavatum] 09-05-2020 Chronic Comment on above: Surgically repaired 2002 Other congenital anomalies (4 sources) Pectus excavatum; Translations: [Pectus excavatum] Chronic Other lower respiratory disease (2 sources) Shortness of breath; Translations: [Shortness of breath] Onset: 11-14-2017 Episodic Other lower respiratory disease (20 sources) Dyspnea; Translations: [Shortness of breath] 08-27-2019 Episodic Other screening for suspected conditions (not mental disorders or infectious disease) (1 source) Encounter for screening mammogram for malignant neoplasm of breast; Translations: [Encounter for screening mammogram for malignant neoplasm of breast] Onset: 01-19-2025 Episodic Other upper respiratory infections (20 sources) Upper respiratory infection; Translations: [Acute upper respiratory infection, unspecified] 04-15-2023 Episodic Unclassified (1 source) Unknown / UNK(Unknown) Onset: 11-14-2017 Unclassified (5 sources) Z00.00 - Encounter for general adult medical examination without abnormal findings Unclassified (4 sources) Encounter for preventive care Viral infection (4 sources) Enteroviral vesicular stomatitis with exanthem; Translations: [Hand, foot, and mouth disease] Episodic Past or Other Problems Problem Classification Problem Date Documented Date Episodic/Chronic Cardiac dysrhythmias (20 sources) Palpitations; Translations: [Palpitations] Onset: 07-03-2024 04-14-2020 Episodic Other circulatory disease (5 sources) Personal history of other diseases of the circulatory system; Translations: [Personal history of other diseases of circulatory system] Onset: 07-03-2024 06-28-2023 Episodic Residual codes; unclassified (20 sources) History of repair of mitral valve; Translations: [Other specified postprocedural states] Onset: 07-25-2009 04-14-2020 Episodic Comment on above: 34mm Ike-Edward s annuloplasty system per Dr. Rickie Wheeler @ [facility] 08/01/2009 Residual codes; unclassified (20 sources) History of radiofrequency ablation operation for arrhythmia; Translations: [Other specified postprocedural states] Onset: 07-25-2015 04-14-2020 Episodic Comment on above: Per Dr. Ivan montero [facility]: 07/19/2015 and 08/12/2015 (atypical a-flutter ablation) Residual codes; unclassified (20 sources) History of atrial flutter; Translations: [Other specified postprocedural states] Onset: 09-06-2015 04-14-2020 Episodic Comment on above: Per Dr. Ivan montero [facility]: 07/19/2015 and 08/12/2015 (atypical a-flutter ablation) Residual codes; unclassified (17 sources) Other specified postprocedural states; Translations: [Personal history of surgery to heart and great vessels, presenting hazards to health] Onset: 07-25-2009 Episodic Results Test Name Value Interpretation Reference Range Facility Prothrombin Time w/INRon INR Coag (PPP) [Relative time] 3.0 {INR} Normal [facility] Comment on above: Performed By: #### L 749.1351 #### [facility] [address] [place], [address] PT Coag (PPP) [Time] 31.4 s High 11.7-14.9 [facility] Comment on above: Performed By: #### L 300.3900 #### [facility] [address] [place], [place], [address] Breast imaging reportOrdered By: Esme Buckner on 01-13-2025 Study report [facility] Imaging Services [address] [place] [address] SCRN MAMM (CAD)W/HUNG BILAT MR#: [id number] Acct: [id number] Name: JUDY HUA Rep #: [id number] : 1985 F 40 From: Karime Buckner MD PCP: Dr. Ezra Arenas MD Status: R EG CLI Study:SCRN MAMM (CAD)W/HUNG BILAT Date of Exa m: 01/13/25 Exam# [id number] Ordering Dr: Sandra Arenas MD EXAM: SCRN MAMM (CAD)W/HUNG BILAT DATE: 01/13/2025 CLINICAL HISTORY: F, Age 40 y/o , BREAST CANCER SCREENING TECHNIQUE: SCRN MAMM (CAD)W/HUNG BILAT COMPARISON: Baseline examination, no priors. FINDINGS: TISSUE DENSITY: The breasts are extremely dense, which lowers the sensitivity ofmammography. The mammogram demonstrates that the patient has dense breasts. Supplemental screening with whole breast ultrasound or MRI may be considered for further evaluation. Bilateral Breast Mammographic Findings: No significant masses, calcifications or other abnormalities are identified. BI/SCRN MAMM (CAD)W/HUNG BILAT IMPRESSION: There is no mammographic evidence of malignancy. OVERALL FINAL ASSESSMENT BI-RADS 1: NEGATIVE. RECOMMENDATION: Routine annual follow-up in 1 Year A letter with findings and recommendations will be mailed to the patient. Reading [facility] CC: Dr. Ezra Arenas MD ~ Medical Apparatus Model Maker: Signed [facility] SCRN MAMM (CAD)W/HUNG BILATo n 01-13-2025 SCRN MAMM (CAD)W/HUNG BILAT [facility] Imaging Services [address] [place] [address] SCRN MAMM (CAD)W/HUNG BILAT MR#: [id number] Acct: [id number] Name: JUDY HUA Rep #: [id number] : 1985 F 40 From: Esme Buckner MD PCP: Dr. Ezra Arenas MD Status: [facility] CLI Study: SCRN MAMM (CAD)W/HUNG BILAT Date of Exam: 12/23 09/15 Exam# [id number] Ordering Dr: Ezra Arenas MD EXAM: SCRN MAMM (CAD)W/HUNG BILAT DATE: 01/13/2025 CLINICAL HISTORY: F, Age 40 y/o , BREAST CANCER SCREENING TECHNIQUE: SCRN MAMM (CAD)W/HUNG BILAT COMPARISON: Baseline examination, no priors. FINDINGS: TISSUE DENSITY: The breasts are extremely dense, which lowers the sensitivity of mammography. The mammogram demonstrates that the patient has dense breasts. Supplemental screening with whole breast ultrasound or MRI may be considered for further evaluation. Bilateral Breast Mammographic Findings: No significant masses, calcifications or other abnormalities are identified. BI/SCRN MAMM (CAD)W/HUNG BILAT IMPRESSION: There is no mammographic evidence of malignancy. OVERALL FINAL ASSESSMENT BI-RADS 1: NEGATIVE. RECOMMENDATION: Routine annual follow-up in 1 Year A letter with findings and recommendations will be mailed to the patient. Reading Location[facility] CC: Dr. 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 [place] [address] OFFICE VISIT Date of Service: 12/31/24 MR#: [id number] Acct: [id number] Name: JUDY HUA Rep #: [id number] : 1985 Provider: ERWIN Saleh Age/Sex: 39/F Location: [facility] Status: Signed HPI HPI History of Present Illness Details: This is a 39-year-old female who presents here today for monitoring of her cardiovascular status. She has a history of a mitral valve repair in 2009 at the [facility] with a 24 mm Ike Oliveira annuloplasty ring, PFO repair at that time, pectus excavatum s/p bar placement with subsequent removal, atrial fibrillation with a cardioversion in 2014, and post atrial flutter ablation in [address] [facility]. She also underwent a cardioversion on 04/14/2020 while in the emergency department. The patient did note that her sister has been diagnosed with thromboembolic events as has her dad. There is a question of the genetic predisposition. Her sister has been tested in February but she does not know the results of the testing. The patient has never been and is not planning on being in the near future. 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 From a cardiac standpoint she is doing well and does not have any concerns. She has not had any atrial fibs. She does use an iWatch and this has not indicated any atrial fibrillation. Her last episode was 5 years ago. She does keep herself active. She does not have any chest pain or worsening shortness of breath. She did have an echocardiogram in July 2024 which demonstrated normal ejection fraction of 60% with stable mitral valve. Intake Vital Signs 07/03/24 10:12 12/02/24 10:57 12/31/24 10:45 Height 5 ft 9 in 5 ft 9 in 5 ft 9 in Weight: 164 lb 166 lb BMI 24.2 24.5 BP 102/62 93/57 L Blood Pressure Location Lt brachial Lt brachial Position Sitting Sitting Respiration 18 16 Pulse 69 63 Pulse Source Monitor NIBP Temp 98.0 F Pulse Oximetry (%) 99 Oxygen Delivery Method room air Intake Visit Reasons: 6 M FU Model Artists' Required: No Is patient in pain?: No Allergies amoxicillin Allergy (Intermediate, Verified 12/31/24 10:50) Rash, hives (needs Clinda for premed) Environmental Allergies: Uncoded Allergy (Intermediate, Verified 12/31/24 10:50) NEEDS FOLLOW-UP hydrocodone (From Vicodin) Adverse Reaction (Intermediate, Verified 12/31/24 10:50) nausea Medications ???Medication ???Instructions ???Recorded ???Confirmed ???Type multivitamin 1 cap PO DAILY 11/26/19 12/31/24 H istory biotin 10 mg tablet 10 mg PO DAILY 11/23/22 12/31/24 H istory metoprolol tartrate 25 mg tablet 25 mg PO BID #180 tabs 04/01/24 Rx warfarin 2.5 mg tablet 2.5 mg PO .COMPLEX #60 tabs 12/31/24 Rx rosuvastatin 5 mg tablet (Crestor) 5 mg PO DAILY #90 tabs 10/05/24 12/31/24 Rx warfarin 5 mg tablet 5 mg PO DAILY #90 tabs 10/16/24 Rx azithromycin 500 mg tablet 500 mg PO .COMPLEX PRN 12/31/24 H istory (Zithromax) Ejection fraction %: 60 Have you fallen in the past year?: No PFSH Medical History Acute bronchitis, unspecified URI (upper respiratory infection) 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 Atrial flutter History of atrial fibrillation Carpal tunnel syndrome History of kidney stones Palpitations Tachycardia History of scoliosis Patent ductus arteriosus Chronic bronchitis Ankle fracture, left A-fib Bronchitis Surgical History History of mitral valve repair ( 08/01/09) History of radiofrequency ablation procedure for cardiac arrhythmia ( 08/12/15) S/P ablation of atrial flutter (09/06/15) History of left heart catheterization (07/27/09) S/P mitral valve repair (08/01/09) History of tonsillectomy Pectus excavatum History of cardioversion (06/15/15) Family History Father Hypertension Heart disease Hyperlipemia Mother Hypertension Alcoholism Depression Grandmother Cancer Other History of atrial fibrillation Social History Smoking Status: Never smoker alcohol intake: never substance use type: does not use what type of physical activity do you participate in: walking frequency: daily ROS Const Const: Negative for fatigue or weakness Eyes Eyes: Negative for change in vision ENT ENT: Negative for dizziness or balance problems Cardio Chest Pain: No Palpitations: No Edema: None Resp Respiratory: Negative for SOB with activity, SOB at rest or SOB orthopnea SOB lying down GI GI: Negative nausea or heartbur (more content not included)... Normal [facility] normalized rat io (INR) calculationOrdered By: Miri Galdamez on 12-31-2024 INR Coag (Bld) [Relative time] 2.9 {INR} [facility] Prothrombin Time w/INRon INR Coag (PPP) [Relative time] 2.9 {INR} Normal [facility] Comment on above: Performed By: #### L 300.3900 #### [facility] [address], [address] PT Coag (PPP) [Time] 31.4 s High 11.7-14.9 [facility] Comment on above: Performed By: #### L 300.3900 #### [facility] [address] [place], [place], [address] (363) Prothrombin timeOrdered By: Miri Galdamez on 12-31-2024 PT Coag (PPP) [Time] 31.4 s High 11.7-14.9 [facility] Absolute lymphocyte countOrd ered By: Ezra Arenas on 12-02-2024 Lymphocytes Auto (Unsp spec) [#/Vol] 1.70 10*3/uL 0.83-4.51 [facility] Absolute neutrophil countOrd ered By: Ezra Arenas on 12-02-2024 Neutrophils (Bld) [#/Vol] 2.4 10*3/uL 2.0-7.7 [facility] Anion gap in Serum or Plasma Ordered By: Ezra Arenas on 12-02-2024 Anion gap [Moles/Vol] 11 mmol/L 5-15 [facility] Automated lymphocyte count a s percentage of total leukocytesOrdered By: Ezra Arenas on 12-02-2024 Lymphocytes/100 WBC Auto (Unsp spec) 36.0 % 19-41 [facility] BUN/creatinine ratioOrdered By: Ezra Arenas on 12-02-2024 Urea nitrogen/Creatinine [Mass ratio] 15.3 mg/mg - [facility] Basic Metabolic Profile (BMP )on 12-02-2024 BUN/CRE 15.3 RATIO Normal - [facility] Comment on above: Performed By: #### L 300.3900 #### [facility] [address] [place], [address] Calcium [Mass/Vol] 10.0 mg/dL Normal 7.6-11.0 [facility] Comment on above: Performed By: #### L 300.3900 #### [facility] [address] [place], [address] Chloride [Moles/Vol] 106 mmol/L Normal 98-108 [facility] Comment on above: Performed By: #### L 300.3900 #### [facility] [address] [place], [address] CO2 [Moles/Vol] 24.9 mmol/L Normal 21.0-32.0 [facility] Comment on above: Performed By: #### L 300.3900 #### [facility] [address] [place], [address] Creatinine [Mass/Vol] 0.81 mg/dL Normal 0.70-1.20 [facility] Comment on above: Performed By: #### L 300.3900 #### [facility] [address] [place], [address] GAP 11 Normal 5-15 [facility] Comment on above: Performed By: #### L 300.3900 #### [facility] [address] [place], [address] GFR/1.73 sq M.predicted among non-blacks MDRD (S/P/Bld) [Vol rate/Area] 95 mL/min/{1.73_m2} Normal >60 [facility] Comment on above: Result Comment: mL/m in/1.73m2 CKD-EPI Creatinine Equation (2020) Performed By: #### L 300.3900 #### [facility] [address] [place], [address] Glucose [Mass/Vol] 82 mg/dL Normal 70-99 [facility] Comment on above: Performed By: #### L 300.3900 #### [facility] [address] [place], [address] Potassium [Moles/Vol] 5.1 mmol/L Normal 3.3-5.1 [facility] Comment on above: Performed By: #### L 300.3900 #### [facility] [address] [place], [address] Sodium [Moles/Vol] 143 mmol/L Normal 133-145 [facility] Comment on above: Performed By: #### L 300.3900 #### [facility] [address] [place], [address] Urea nitrogen [Mass/Vol] 12 mg/dL Normal 4-19 [facility] Comment on above: Performed By: #### L 300.3900 #### [facility] [address] [place], [address] Basophil percentageOrdered B y: Ezra Arenas on 12-02-2024 Basophils/100 WBC (Bld) 1.1 % High 0-1 [facility] CBC W/Diff, Automatedon 11-22 Absolute Lymph 1.70 X10 3/uL Normal 0.83-4.51 [facility] Comment on above: Performed By: #### L 300.3900 #### [facility] [address] [place], [address] Absolute Neut 2.4 X10 3/uL Normal 2.0-7.7 [facility] Comment on above: Performed By: #### L 300.3900 #### [facility] [address] [place], [address] Basophils/100 WBC (Bld) 1.1 % High 0-1 [facility] Comment on above: Performed By: #### L 300.3900 #### [facility] [address] [place], [address] Eosinophils/100 WBC (Bld) 2.5 % Normal 0-5 [facility] Comment on above: Performed By: #### L 300.3900 #### [facility] [address] [place], [address] Erythrocyte distribution width (RBC) [Ratio] 13.2 % Normal 11.6-14.6 [facility] Comment on above: Performed By: #### L 300.3900 #### [facility] [address] [place], [address] Hematocrit (Bld) [Volume fraction] 47.4 % High 37-47 [facility] Comment on above: Performed By: #### L 300.3900 #### [facility] [address] [place], [address] Hemoglobin (Bld) [Mass/Vol] 15.6 g/dL High 12.0-15.0 [facility] Comment on above: Performed By: #### L 300.3900 #### [facility] [address] [place], [address] IG% 0.200 Normal 0.0-0.9 [facility] Comment on above: Result Comment: IG% - Immature Granulocytes (promyelocytes, myelocytes and metamyelocytes) > 1% indicates that a LEFT SHIFT is Present. Performed By: #### L 300.3900 #### [facility] [address] [place], [address] Lymphocytes/100 WBC (Bld) 36.0 % Normal 19-41 [facility] Comment on above: Performed By: #### L 300.3900 #### [facility] [address] [place], [address] MCH (RBC) [Entitic mass] 30.5 pg Normal 27.0-32.0 [facility] Comment on above: Performed By: #### L 300.3900 #### [facility] [address] [place], [address] MCHC (RBC) [Mass/Vol] 32.9 g/dL Normal 32-36 [facility] Comment on above: Performed By: #### L 300.3900 #### [facility] [address] [place], [address] MCV (RBC) [Entitic vol] 92.6 fL Normal 81-99 [facility] Comment on above: Performed By: #### L 300.3900 #### [facility] [place], [address] Monocytes/100 WBC (Bld) 8.7 % Normal 0-10 [facility] Comment on above: Performed By: #### L 300.3900 #### [facility] [address] [place], [address] Neutrophils/100 WBC (Bld) 51.5 % Normal 47-70 [facility] Comment on above: Performed By: #### L 300.3900 #### [facility] [address] [place], [address] Nucleated RBC (Bld) [#/Vol] 0 10*3/uL Normal 0-5 [facility] Comment on above: Performed By: #### L 300.3900 #### [facility] [address] [place], [address] Platelet mean volume (Bld) [Entitic vol] 9.7 fL Normal 6.2-12.0 [facility] Comment on above: Performed By: #### L 300.3900 #### [facility] [address] [place], [address] Platelets (Bld) [#/Vol] 292 10*3/uL Normal 150-450 [facility] Comment on above: Performed By: #### L 300.3900 #### [facility] [address] [place], [address] RBC (Bld) [#/Vol] 5.12 10*6/uL Normal 4.2-5.4 [facility] Comment on above: Performed By: #### L 300.3900 #### [facility] [address] [place], [address] RDW SD 44.6 fl High 35.1-43.9 [facility] Comment on above: Performed By: #### L 300.3900 #### [facility] [address] [place], [address] WBC (Bld) [#/Vol] 4.7 10*3/uL Normal 4.4-11.0 [facility] Comment on above: Performed By: #### L 300.3900 #### [facility] [address] [place], [address] Carbon dioxide, total [Moles /volume] in Central venous bloodOrdered By: Ezra Arenas on 12-02-2024 CO2 [Moles/Vol] 24.9 mmol/L 21.0-32.0 [facility] Chloride assayOrdered By: Jorge Arenas on 12-02-2024 Chloride [Moles/Vol] 106 mmol/L 98-108 [facility] Eosinophil percentageOrdered By: Ezra Arenas on 12-02-2024 Eosinophils/100 WBC (Bld) 2.5 % 0-5 [facility] Erythrocyte distribution wid th ratioOrdered By: Ezra Arenas on 12-02-2024 Erythrocyte distribution width (RBC) [Ratio] 13.2 % 11.6-14.6 [facility] Erythrocyte distribution wid th standard deviationOrdered By: Ezra Arenas on 12-02-2024 Erythrocyte distribution width (RBC) [Ratio] 44.6 fl High 35.1-43.9 [facility] Glomerular filtration rate ( GFR) estimation/1.73 sq m using serum, plasma, or whole bOrdered By: Ezra Arenas on 12-02-2024 GFR/1.73 sq M.predicted among non-blacks MDRD (S/P/Bld) [Vol rate/Area] 95 mL/min/{1.73_m2} >60 [facility] Comment on above: mL/min/1.73m2 CKD-EP I Creatinine Equation (2020) Hematocrit Auto (Bld) [Volum e fraction]Ordered By: Ezra Arenas on 12-02-2024 Hematocrit (Bld) [Volume fraction] 47.4 % High 37-47 [facility] Hemoglobin measurementOrdere d By: Ezra Arenas on 12-02-2024 Hemoglobin (Bld) [Mass/Vol] 15.6 g/dL High 12.0-15.0 [facility] Immature granulocytes/100 WB C Auto (Bld)Ordered By: Ezra Arenas on 12-02-2024 Immature granulocytes/100 WBC (Bld) 0.200 % 0.0-0.9 [facility] Comment on above: IG% - Immature Granu locytes (promyelocytes, myelocytes and metamyelocytes) > 1% indicates that a LEFT SHIFT is Present. Internal Medicine Office Vis sesar 12-02-2024 Internal Medicine Office Visit [facility] [address] [place] [address] [place] [address] OFFICE VISIT Date of Service: 12/02/24 MR#: [id number] Acct: [id number] Name: MELITAJUDY Neftali Rep #: [id number] : 1985 Provider: Dr. Ezra casanova MD Age/Sex: 39/F Location: [facility] Status: Signed Intake Vital Signs 12/02/23 14:42 07/03/24 10:12 12/02/24 10:57 Height 5 ft 9 in 5 ft 9 in 5 ft 9 in Weight: 164 lb BMI 24.2 BP 102/62 Blood Pressure Location Lt brachial Position Sitting Respiration 18 Pulse 69 Pulse Source Monitor Temp 98.0 F Temp Source Temporal Pulse Oximetry (%) 99 Oxygen Delivery Method room air Intake Visit Reasons: YEARLY Chief Complaint: YEARLY Is patient in pain?: No Allergies amoxicillin Allergy (Intermediate, Verified 12/02/24 11:00) Rash, hives (needs Clinda for premed) Environmental Allergies: Uncoded Allergy (Intermediate, Verified 12/02/24 11:00) NEEDS FOLLOW-UP hydrocodone (From Vicodin) Adverse Reaction (Intermediate, Verified 12/02/24 11:00) nausea Medications ???Medication ???Instructions ???Recorded ???Confirmed ???Type multivitamin 1 cap PO DAILY 11/26/19 12/02/24 H istory biotin 10 mg tablet 10 mg PO DAILY 11/23/22 12/02/24 H istory metoprolol tartrate 25 mg tablet 25 mg PO BID #180 tabs 04/01/24 Rx warfarin 2.5 mg tablet 2.5 mg PO .COMPLEX #60 tabs 12/02/24 Rx azithromycin 500 mg tablet 500 mg PO .COMPLEX #3 tabs 5 12/02/24 Rx (Zithromax) rosuvastatin 5 mg tablet (Crestor) 5 mg PO DAILY #90 tabs 10/05/24 12/02/24 Rx warfarin 5 mg tablet 5 mg PO DAILY #90 tabs 10/16/24 Rx PFSH Medical History Acute bronchitis, unspecified URI (upper respiratory infection) 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 Atrial flutter History of atrial fibrillation Carpal tunnel syndrome History of kidney stones Palpitations Tachycardia History of scoliosis Patent ductus arteriosus Chronic bronchitis Ankle fracture, left A-fib Bronchitis Surgical History History of mitral valve repair ( 08/01/09) History of radiofrequency ablation procedure for cardiac arrhythmia ( 08/12/15) S/P ablation of atrial flutter (09/06/15) History of left heart catheterization (07/27/09) S/P mitral valve repair (08/01/09) History of tonsillectomy Pectus excavatum History of cardioversion (06/15/15) Family History Father Hypertension Heart disease Hyperlipemia Mother Hypertension Alcoholism Depression Grandmother Cancer Other History of atrial fibrillation Social History Smoking Status: Never smoker alcohol intake: never substance use type: does not use what type of physical activity do you participate in: walking frequency: daily HPI HPI Chief Complaint: YEARLY Details: JUDY HUA, is a 39 F who presents to the office today for her yearly visit. No acute concerns reported at this time. No significant changes in personal or family history since her last visit. History of atrial fibrillation, mitral valve disease and follows up with cardiology. Currently on Coumadin, no bleeding concerns. Was referred to CLINICAL NURSING MANAGER a few years ago but did not follow through, last Pap smear was years ago. Has not had a mammogram, no known family history of breast cancer. Follows with dermatology and is on an every other year visit/schedule. Feels well. ROS Const Constitutional: No body ache, chills, excessive sweating, fatigue, fever(s), frequent falls, headache(s), snoring, weight change, sleep problems, abnormal sleep pattern or change in appetite Eyes Eyes: No blurry vision, change in vision, floaters, visual disturbances, eye pain or Light sensitivity ENT ENT: No abnormal hearing, ear or mastoid pain, tinnitus, balance problems, nosebleed/epistaxis, nasal congestion, headache(s), neck pain or sore throat Resp Respiratory: No cough, excessive phlegm production, pain on inspiration, shortness of breath, snoring or wheezing Cardio Cardiology: No chest pain at rest, chest pain with exertion, excessive sweating, shortness of breath, dyspnea on exertion, lightheadedness, orthopnea or palpitations Gastro GI: No abdominal pain, change in bowel habits, constipation, cramping, diarrhea, nausea/dyspepsia or vomiting Genitourinary-Female: No burning urination, painful urination, urinary incontinence, urinary frequency, suprapubic fullness, side pain, abnormal vaginal bleeding or pelvic pain Musc Musculoskeletal: No abnormal gait, joint pain, back pain, limited range of motion, neck pain, numbness or tingli (more content not included)... Normal [facility] normalized rat io (INR) calculationOrdered By: Miri Galdamez on 12-02-2024 INR Coag (Bld) [Relative time] 2.5 {INR} [facility] MCV (mean corpuscular volume ) determinationOrdered By: Ezra Arenas on 12-02-2024 MCV (RBC) [Entitic vol] 92.6 fL 81-99 [facility] Mean corpuscular hemoglobin (MCH) determinationOrdered By: Ezra Arenas on 12-02-2024 MCH (RBC) [Entitic mass] 30.5 pg 27.0-32.0 [facility] Mean corpuscular hemoglobin concentration (MCHC) determinationOrdered By: Ezra Arenas on 12-02-2024 MCHC (RBC) [Mass/Vol] 32.9 g/dL 32-36 [facility] Mean platelet volume determi nationOrdered By: Ezra Arenas on 12-02-2024 Platelet mean volume (Bld) [Entitic vol] 9.7 fL 6.2-12.0 [facility] Monocyte percentageOrdered B y: Ezra Arenas on 12-02-2024 Monocytes/100 WBC (Bld) 8.7 % 0-10 [facility] Neutrophil percentageOrdered By: Ezra Arenas on 12-02-2024 Neutrophils/100 WBC (Bld) 51.5 % 47-70 [facility] Nucleated red blood cell per centageOrdered By: Ezra Arenas on 12-02-2024 Nucleated RBC/100 WBC (Bld) [Ratio] 0 % 0-5 [facility] Platelet countOrdered By: Jorge Arenas on 12-02-2024 Platelets (Bld) [#/Vol] 292 10*3/uL 150-450 [facility] Potassium measurement (mass/ volume)Ordered By: Ezra Arenas on 12-02-2024 Potassium (Unsp spec) [Mass/Vol] 5.1 mmol/L 3.3-5.1 [facility] Prothrombin Time w/INRon INR Coag (PPP) [Relative time] 2.5 {INR} Normal [facility] Comment on above: Performed By: #### L 100.0500, L500.4100 #### [facility] [address] [place], [address] PT Coag (PPP) [Time] 27.3 s High 11.7-14.9 [facility] Comment on above: Performed By: #### L 100.0500, L500.4100 #### [facility] [address] [place], [address] Prothrombin timeOrdered By: Miri Galdamez on 12-02-2024 PT Coag (PPP) [Time] 27.3 s High 11.7-14.9 [facility] RBC Auto (Bld) [#/Vol]Ordere d By: Ezra Arenas on 12-02-2024 RBC (Bld) [#/Vol] 5.12 10*6/uL 4.2-5.4 [facility] Serum creatinine measurement (mass/volume)Ordered By: Ezra Arenas on 12-02-2024 Creatinine [Mass/Vol] 0.81 mg/dL 0.70-1.20 [facility] Serum glucose measurement (m ass/volume)Ordered By: Ezra Arenas on 12-02-2024 Glucose [Mass/Vol] 82 mg/dL 70-99 [facility] Serum or plasma calcium jamilah urement (mass/volume)Ordered By: Ezra Arenas on 12-02-2024 Calcium [Mass/Vol] 10.0 mg/dL 7.6-11.0 [facility] Serum or plasma urea nitroge n measurement (mass/volume)Ordered By: Ezra Arenas on 12-02-2024 Urea nitrogen [Mass/Vol] 12 mg/dL 4-19 [facility] Sodium levelOrdered By: Paulina Arenas on 12-02-2024 Sodium [Moles/Vol] 143 mmol/L 133-145 [facility] White blood cell (WBC) count Ordered By: Ezra Arenas on 12-02-2024 WBC (Bld) [#/Vol] 4.7 10*3/uL 4.4-11.0 [facility] normalized rat io (INR) calculationOrdered By: Miri Galdamez on 11-06-2024 INR Coag (Bld) [Relative time] 2.2 {INR} [facility] Prothrombin Time w/INRon INR Coag (PPP) [Relative time] 2.2 {INR} Normal [facility] Comment on above: Performed By: #### L 100.0500, L500.4100 #### [facility] [address] [place], [address] PT Coag (PPP) [Time] 25.1 s High 11.7-14.9 [facility] Comment on above: Performed By: #### L 100.0500, L500.4100 #### [facility] [address] [place], [address] Prothrombin timeOrdered By: Miri Galdamez on 11-06-2024 PT Coag (PPP) [Time] 25.1 s High 11.7-14.9 [facility] International normalized rat io (INR) calculationOrdered By: Miri Galdamez on 10-16-2024 INR Coag (Bld) [Relative time] 2.0 {INR} [facility] Prothrombin Time w/INRon INR Coag (PPP) [Relative time] 2.0 {INR} Normal [facility] Comment on above: Performed By: #### L 300.3900 #### [facility] [address] [place], [address] PT Coag (PPP) [Time] 23.2 s High 11.7-14.9 [facility] Comment on above: Performed By: #### L 300.3900 #### [facility] [address] [place], [place], [id number] Prothrombin timeOrdered By: Miri Galdamez on 10-16-2024 PT Coag (PPP) [Time] 23.2 s High 11.7-14.9 [facility] International normalized rat io (INR) calculationOrdered By: Miri Galdamez on 09-16-2024 INR Coag (Bld) [Relative time] 2.7 {INR} [facility] Prothrombin Time w/INRon INR Coag (PPP) [Relative time] 2.7 {INR} Normal [facility] Comment on above: Performed By: #### L 300.3900 #### [facility] [address], [place], [id number] PT Coag (PPP) [Time] 28.8 s High 11.7-14.9 [facility] Comment on above: Performed By: #### L 300.3900 #### [facility] [address] [place], [place], [id number] Prothrombin timeOrdered By: Miri Galdamez on 09-16-2024 PT Coag (PPP) [Time] 28.8 s High 11.7-14.9 [facility] Bilirubin directOrdered By: Samuel Coelho on 08-28-2024 Bilirubin.direct [Mass/Vol] 0.29 mg/dL 0.00-0.30 [facility] Bilirubin, totalOrdered By: Samuel Coelho on 08-28-2024 Bilirubin [Mass/Vol] 0.65 mg/dL 0.00-1.30 [facility] Calculated very low density lipoprotein (VLDL) cholesterol measurementOrdered By: Samuel Coelho on 08-28-2024 Calculated very low density lipoprotein (VLDL) cholesterol measurement 23 mg/dL - [facility] VLDL Cholesterol 23 mg/dL [facility] LDL calc ser/plasOrdered By: Samuel Coelho on 08-28-2024 Cholesterol in LDL [Mass/Vol] 66 mg/dL [facility] Comment on above: Bdplcodnvj=614-597 m g/dL & Higher Khok=882 mg/dL or greater LDL Cholesterol, Calculated 66 mg/dL [facility] Comment on above: Arhrftbzdn=697-661 m g/dL & Higher Tfyl=342 mg/dL or greater Laboratory - Chemistry and C hemistry - challengeOrdered By: Samuel Coelho on 08-28-2024 AST [Catalytic activity/Vol] 22 U/L <32 [facility] Lipid Profileon 08-28-2024 CHOL:HDL 2.54 Normal [facility] Comment on above: Performed By: #### L 500.4100, L500.3400 #### [facility] [address] [place], [address] Cholesterol [Mass/Vol] 147 mg/dL Normal <=200 [facility] Comment on above: Result Comment: Chol esterol level, Desirable <200 mg/dL Borderline high cholesterol 200-239 mg/dL High cholesterol >=240 mg/dL Recommendations of the NCEP Adult Treatment Panel for the following risk-cutoff thresholds for the [place] population. Performed By: #### L 500.4100, L500.3400 #### [facility] [address] [place], [address] Cholesterol in HDL [Mass/Vol] 58 mg/dL Normal [facility] Comment on above: Result Comment: Rose onal Cholesterol Education Program (NCEP) guidelines: <40 mg/dL: Low HDL-cholesterol (major risk factor for CHD) >= 60 mg/dL: High HDL-cholesterol (negative risk factor for CHD) HDL-cholesterol is affected by a number of factors, e.g. smoking, exercise, hormones, sex and age. Performed By: #### L 500.4100, L500.3400 #### [facility] [address] [place], [address] Cholesterol in LDL [Mass/Vol] 66 mg/dL Normal [facility] Comment on above: Result Comment: Bord feeyfe=851-256 mg/dL Higher Tbid=155 mg/dL or greater Performed By: #### L 500.4100, L500.3400 #### [facility] [address] [place], [address] Cholesterol in VLDL [Mass/Vol] 23 mg/dL Normal 5-40 [facility] Comment on above: Performed By: #### L 500.4100, L500.3400 #### [facility] [address] [place], [address] Triglyceride [Mass/Vol] 117 mg/dL Normal [facility] Comment on above: Result Comment: The drugs N-Acetylcysteine and Metamizole may falsely depress this assay. Normal range: <150 mg/dL Borderline High: 150-199 mg/dL High: 200-499 mg/dL Very High: >500 mg/dL Performed By: #### L 500.4100, L500.3400 #### [facility] [address] [place], [address] Liver Profileon 08-28-2024 Albumin [Mass/Vol] 4.3 g/dL Normal 3.5-5.0 [facility] Comment on above: Performed By: #### L 500.4100, L500.3400 #### [facility] [address] [place], [address] ALK PHOS 64 U/L Normal 35-104 [facility] Comment on above: Performed By: #### L 500.4100, L500.3400 #### [facility] [address] [place], [address] ALT [Catalytic activity/Vol] 16 U/L Normal <=34 [facility] Comment on above: Performed By: #### L 500.4100, L500.3400 #### [facility] [address] [place], [address] AST [Catalytic activity/Vol] 22 U/L Normal <=31 [facility] Comment on above: Performed By: #### L 500.4100, L500.3400 #### [facility] [address] [place], [address] Bilirubin [Mass/Vol] 0.65 mg/dL Normal 0.00-1.30 [facility] Comment on above: Performed By: #### L 500.4100, L500.3400 #### [facility] [address] [place], [address] Bilirubin.direct [Mass/Vol] 0.29 mg/dL Normal 0.00-0.30 [facility] Comment on above: Performed By: #### L 500.4100, L500.3400 #### [facility] [address] [place], [address] Globulin (S) [Mass/Vol] 2.7 g/dL Normal 2.2-4.2 [facility] Comment on above: Performed By: #### L 500.4100, L500.3400 #### [facility] [address] [place], [address] T PROT 6.9 g/dL Normal 5.9-8.4 [facility] Comment on above: Performed By: #### L 500.4100, L500.3400 #### [facility] [address] [place], [address] Prothrombin Time w/INRon INR Coag (PPP) [Relative time] 2.6 {INR} Normal [facility] Comment on above: Order Comment: Comme nts: STANDING ORDER fax to [phone] Performed By: #### L 100.0500, L500.4100 #### [facility] [address] [place], [address] PT Coag (PPP) [Time] 28.2 s High 11.7-14.9 [facility] Comment on above: Order Comment: Comme nts: STANDING ORDER fax to [phone] Performed By: #### L 100.0500, L500.4100 #### [facility] [address] [place], [address] Screening total cholesterol/ high density lipoprotein (HDL) cholesterol ratioOrdered By: Samuel Coelho on 08-28-2024 Cholesterol.total/Chol esterol in HDL [Mass ratio] 2.54 {ratio} [facility] Serum globulin measurementOr dered By: Samuel Coelho on 08-28-2024 Globulin (S) [Mass/Vol] 2.7 g/dL 2.2-4.2 [facility] Serum or plasma alanine mora otransferase (ALT) measurementOrdered By: Samuel Coelho on 08-28-2024 ALT [Catalytic activity/Vol] 16 U/L <35 [facility] Serum or plasma albumin jamilah urement (mass/volume)Ordered By: Samuel Coelho on 08-28-2024 Albumin [Mass/Vol] 4.3 g/dL 3.5-5.0 [facility] Serum or plasma alkaline bryce sphatase measurementOrdered By: Samuel Coelho on 08-28-2024 ALP [Catalytic activity/Vol] 64 U/L 35-104 [facility] Serum or plasma cholesterol in HDL measurement (mass/volume)Ordered By: Samuel Coelho on 08-28-2024 Cholesterol in HDL [Mass/Vol] 58 mg/dL >40 [facility] Comment on above: National Cholesterol Education Program (NCEP) guidelines:<40 mg/dL: Low HDL-cholesterol (major risk factor for CHD)>= 60 mg/dL: High HDL-cholesterol (negative risk factor for CHD)HDL-cholesterol is affected by a number of factors, e.g. smoking, exercise, hormones, sex and age. Serum or plasma cholesterol measurement (mass/volume)Ordered By: Samuel Coelho on 08-28-2024 Cholesterol [Mass/Vol] 147 mg/dL <201 [facility] Comment on above: Cholesterol level, D esirable <200 mg/dLBorderline high cholesterol 200-239 mg/dLHigh cholesterol >=240 mg/dLRecommendations of the NCEP Adult Treatment Panel for the following risk-cutoff thresholds for the [place] population. Total proteinOrdered By: Aki Coelho on 08-28-2024 Protein [Mass/Vol] 6.9 g/dL 5.9-8.4 [facility] Triglycerides measurementOrd ered By: Samuel Coelho on 08-28-2024 Triglyceride [Mass/Vol] 117 mg/dL <199 [facility] Comment on above: The drugs N-Acetylcy steine and Metamizole may falsely depress this assay. Normal range: <150 mg/dLBorderline High: 150-199 mg/dLHigh: 200-499 mg/dLVery High: >500 mg/dL International normalized rat io (INR) calculationOrdered By: Miri Galdamez on 08-14-2024 INR Coag (Bld) [Relative time] 3.2 {INR} [facility] Prothrombin Time w/INRon INR Coag (PPP) [Relative time] 3.2 {INR} Normal [facility] Comment on above: Performed By: #### L 100.0500, L500.4100 #### [facility] [address] [place], [address] PT Coag (PPP) [Time] 33.6 s High 11.7-14.9 [facility] Comment on above: Performed By: #### L 100.0500, L500.4100 #### [facility] [address] [place], [address] Prothrombin timeOrdered By: Miri Galdamez on 08-14-2024 PT Coag (PPP) [Time] 33.6 s High 11.7-14.9 [facility] Echo Completeon 07-31-2024 Echo Complete [facility] [address] [place] [address] Echo Complete 07/31/24 0947 MR#: [id number] Acct: [id number] Name: JUDY HUA Rep #: [id number] : 1985 39 From: Raymundo Danw MD Attending Dr: Dr. Franklin Shah MD Status: RE G CLI Ordering Dr: Franklin Shah MD Date: 07/31/24 Location: [facility] Sex: F C Admitted: Reason For Study: AFIB Procedure This was a 2D Doppler, Color Flow transthoracic echocardiogram. Exam performed in department. Left Ventricle Normal LV size. Left ventricular systolic function is normal. The left ventricular ejection fraction is 60 %. No regional wall motion abnormalities noted. Right Ventricle Normal RV size. Normal systolic function. Atria Normal left atrium. Normal right atrium. Mitral Valve Moderate focal mitral valve calcification of the anterior leaflet. Status post mitral valve repair. Tricuspid Valve Normal tricuspid valve. Mild tricuspid valve insufficiency. Aortic Valve Trisinus/trileaflet aortic valve. Pulmonic Valve Normal pulmonic valve. Great Vessels Normal aortic root. The pulmonary artery is normal size. Pericardium/Pleural No pericardial effusion. MMode/2D Measurements Calculations LVIDd: 3.7 cm IVSd: 0.69 cm Ao root diam: 2.9 cm LVIDs: 2.9 cm LVPWd: 0.97 cm RVDd: 3.0 cm FS: 22.7 % ___ LAV(MOD-sp4): 24.7 ml LVAd ap4: 21.9 cm2 SV(MOD-sp4): 28.6 ml LVLd ap4: 8.1 cm SI(MOD-sp4): 15.3 ml/m2 EDV(MOD-sp4): 49.3 ml EDV(sp4-el): 50.1 ml LVAs ap4: 12.8 cm2 LVLs ap4: 6.5 cm ESV(MOD-sp4): 20.8 ml ESV(sp4-el): 21.5 ml EF(MOD-sp4): 57.9 % EF(sp4-el): 57.1 % ___ SV(sp4-el): 28.6 ml LA A4 area: 12.6 cm2 RA A4 area: 13.8 cm2 Time Measurements MV dec time: 0.24 sec Doppler Measurements Calculations MV E max philip: 133.5 cm/sec MV V2 max: 141.6 cm/sec MV A max philip: 82.7 cm/sec MV max P.0 mmHg MV dec slope: 555.1 cm/sec2 MV E/A: 1.6 MV V2 mean: 80.2 cm/sec MV mean P.0 mmHg MV V2 VTI: 38.2 cm ___ Ao V2 max: 143.5 cm/sec LV V1 max: 121.6 cm/sec Ao max P.2 mmHg LV V1 max P.9 mmHg Ao V2 mean: 105.4 cm/sec LV V1 mean P.7 mmHg Ao mean P.0 mmHg LV V1 mean: 91.3 cm/sec Ao V2 VTI: 33.6 cm LV V1 VTI: 27.3 cm AV (velocity ratio): 0.81 ECHO/Echo Complete Interpretation Summary Normal LV size. Left ventricular systolic function is normal. The left ventricular ejection fraction is 60 %. Status post mitral valve repair. Ordering Physician: Franklin Shah Referring Physician: Franklin Shah Performed By: Sandi Birch RCS 07/31/24 9363 Date Raymundo Dawn MD CC: Dr. Ezra Arenas MD; Dr. Franklin Shah MD Date Dictated: 07/31/24 0947 Date Transcribed: 07/31/24 1450 Medical Apparatus Model Maker: Signed Normal [facility] Prothrombin Time w/INRon INR Coag (PPP) [Relative time] 3.3 {INR} Normal [facility] Comment on above: Performed By: #### L 300.3900 #### [facility] [address] [place], [place], [address] PT Coag (PPP) [Time] 34.3 s High 11.7-14.9 [facility] Comment on above: Performed By: #### L 300.3900 #### [facility] [address] [place], [place], [address] 12 Lead EKG performed by [facility] on 07-03-2024 12 Lead EKG performed by [facility] [address] [place] [address] 12 Lead EKG performed by [facility] 07/03/24 0834 MR#: [id number] Acct: [id number] Name: MELITAJUDY Neftali Rep #: [id number] : 1985 39 From: Franklin Shah MD Attending Dr: Dr. Franklin Shah MD Status: DE P AMB Ordering Dr: Franklin Shah MD Date: 07/03/24 Location: [facility] Sex: F C Admitted: BMS/12 Lead EKG performed by [facility] ECG Report Interpretation Sinus Rhythm Low voltage in precordial leads. -RSR(V1) -nondiagnostic. ABNORMAL Electronically signed on 07/03/2024 at 12:[address] Franklin [place] Software Version 8610 07/03/24 1236 Date Franklin Shah MD CC: Dr. Ezra Arenas MD Date Dictated: 07/03/24833 Date Transcribed: 07/03/24833 Medical Apparatus Model Maker: Signed Normal [facility] CBC-Complete Blood Cnt No Di ffhilda 07-03-2024 Erythrocyte distribution width (RBC) [Ratio] 12.8 % Normal 11.6-14.6 [facility] Comment on above: Performed By: #### L 100.0500, L500.4100 #### [facility] [address] [place], [address] Hematocrit (Bld) [Volume fraction] 46.2 % Normal 37-47 [facility] Comment on above: Performed By: #### L 100.0500, L500.4100 #### [facility] [address] [place], [address] Hemoglobin (Bld) [Mass/Vol] 15.7 g/dL High 12.0-15.0 [facility] Comment on above: Performed By: #### L 100.0500, L500.4100 #### [facility] [address] [place], [address] MCH (RBC) [Entitic mass] 30.7 pg Normal 27.0-32.0 [facility] Comment on above: Performed By: #### L 100.0500, L500.4100 #### [facility] [address] [place], [address] MCHC (RBC) [Mass/Vol] 34.0 g/dL Normal 32-36 [facility] Comment on above: Performed By: #### L 100.0500, L500.4100 #### [facility] [address] [place], [address] MCV (RBC) [Entitic vol] 90.2 fL Normal 81-99 [facility] Comment on above: Performed By: #### L 100.0500, L500.4100 #### [facility] [address] [place], [address] Platelet mean volume (Bld) [Entitic vol] 9.4 fL Normal 6.2-12.0 [facility] Comment on above: Performed By: #### L 100.0500, L500.4100 #### [facility] [address] [place], [address] Platelets (Bld) [#/Vol] 310 10*3/uL Normal 150-450 [facility] Comment on above: Performed By: #### L 100.0500, L500.4100 #### [facility] [address] [place], [address] RBC (Bld) [#/Vol] 5.12 10*6/uL Normal 4.2-5.4 [facility] Comment on above: Performed By: #### L 100.0500, L500.4100 #### [facility] [address] [place], [address] RDW SD 42.3 fl Normal 35.1-43.9 [facility] Comment on above: Performed By: #### L 100.0500, L500.4100 #### [facility] [address] [place], [address] WBC (Bld) [#/Vol] 6.4 10*3/uL Normal 4.4-11.0 [facility] Comment on above: Performed By: #### L 100.0500, L500.4100 #### [facility] [address] [place], [address] Cardiology Visit Reporton Cardiology Visit Report [facility] [address] [place] [address] OFFICE VISIT Date of Service: 07/03/24 MR#: [id number] Acct: [id number] Name: JUDY HUA Rep #: [id number] : 1985 Provider: Dr. Franklin kong MD Age/Sex: 39/F Location: [facility] Status: Signed HPI HPI History of Present Illness Details: This is a 39-year-old female who presents here today for monitoring of her cardiovascular status. She has a history of a mitral valve repair in 2009 at the [facility] with a 24 mm Ike Oliveira annuloplasty ring, PFO repair at that time, pectus excavatum s/p bar placement with subsequent removal, atrial fibrillation with a cardioversion in 2014, and post atrial flutter ablation in [address] [facility]. She also underwent a cardioversion on 04/14/2020 while in the emergency department. The patient did note that her sister has been diagnosed with thromboembolic events as has her dad. There is a question of the genetic predisposition. Her sister has been tested in February but she does not know the results of the testing. The patient has never been and is not planning on being in the near future. 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 The patient reports he is doing fairly well in her home environment. She does workout about 4 days a week in the gym some days she says she feels like she has a little bit of air hunger but is really no drop-off in her exercise tolerance. She denies any syncope or near syncope denies any PND orthopnea. Denies any lower extremity edema. The patient denies any significant atrial fibrillation the last time she remembers anything significant was at the time of the SATHYA 4 years ago. She does have a wearable iWatch which has not documented any atrial fibrillation in the past year. She reports that occasionally she gets palpitations but they are very short-lived. She is status post atrial flutter ablation in 2015 that preceded her direct her cardioversion in 2019. The patient's last echocardiogram June 2023 showed her EF was normal at 65% there was a notation of the mitral valve angioplasty ring with no evidence of any significant mitral regurgitation. 4 years ago in 2019 the patient had a transesophageal echocardiogram done and at that time was noted she had 1-2+ MR with thickened mitral leaflets. During that procedure she went into atrial fibrillation and required cardioversion. The patient had a subsequent echocardiogram done in 2021 that showed only 1+ MR this was transthoracic echo. The patient's EKG in the office shows normal sinus rhythm at 64 bpm and RSR prime in V1 and is otherwise unremarkable. Intake Vital Signs 12/02/23 14:42 07/03/24 10:12 Height 5 ft 9 in 5 ft 9 in Weight: 161 lb BMI 23.8 BP 105/69 Blood Pressure Location Lt brachial Position Sitting Respiration 18 Pulse 66 Pulse Source Monitor Pulse Oximetry (%) 98 Oxygen Delivery Method room air Intake Visit Reasons: 1 Y FU Model Artists' Required: No Accompanied by: Self Is patient in pain?: No Allergies amoxicillin Allergy (Intermediate, Verified 07/03/24 10:12) Rash, hives (needs Clinda for premed) Environmental Allergies: Uncoded Allergy (Intermediate, Verified 07/03/24 10:12) NEEDS FOLLOW-UP hydrocodone (From Vicodin) Adverse Reaction (Intermediate, Verified 07/03/24 10:12) nausea Medications ???Medication ???Instructions ???Recorded ???Confirmed ???Type multivitamin 1 cap PO DAILY 11/26/19 07/03/24 History biotin 10 mg tablet 10 mg PO DAILY 11/23/22 07/03/24 History warfarin 5 mg tablet 5 mg PO DAILY #90 tabs 05/28/23 07/03/24 Rx azithromycin 500 mg tablet 500 mg PO .COMPLEX #3 tabs 01/16/24 07/03/24 Rx (Zithromax) metoprolol tartrate 25 mg tablet 25 mg PO BID #180 tabs 04/01/24 07/03/24 Rx warfarin 2.5 mg tablet 2.5 mg PO .COMPLEX #60 tabs 04/01/24 07/03/24 Rx Ejection fraction %: 65 Have you fallen in the past year?: No PFSH Medical History Acute bronchitis, unspecified URI (upper respiratory infection) 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 Normal [facility] Erythrocyte distribution wid th ratioOrdered By: Franklin Shha on 07-03-2024 Erythrocyte distribution width (RBC) [Ratio] 12.8 % 11.6-14.6 [facility] Erythrocyte distribution wid th standard deviationOrdered By: Franklin Shah on 07-03-2024 Erythrocyte distribution width (RBC) [Entitic vol] 42.3 fL 35.1-43.9 [facility] Hematocrit Auto (Bld) [Volum e fraction]Ordered By: Franklin Shah on 07-03-2024 Hematocrit (Bld) [Volume fraction] 46.2 % 37-47 [facility] Hemoglobin measurementOrdere d By: Franklin Shah on 07-03-2024 Hemoglobin (Bld) [Mass/Vol] 15.7 g/dL High 12.0-15.0 [facility] High density lipoprotein (HD L) measurementOrdered By: Franklin Shah on 07-03-2024 Cholesterol in HDL [Mass/Vol] 60 mg/dL >40 [facility] Comment on above: The drugs N-Acetylcy steine and Metamizole may falsely depress this assay. Reference Range HDL <40 mg/dL Low HDL Cholesterol HDL >or= 60 mg/dL High HDL Cholesterol International normalized rat io (INR) calculationOrdered By: Miri Galdamez on 07-03-2024 INR Coag (Bld) [Relative time] 2.8 {INR} [facility] Lipid Profileon 07-03-2024 Cholesterol [Mass/Vol] 246 mg/dL High 200 [facility] Comment on above: Result Comment: <200 mg/dL Desirable 200-240 mg/dL Borderline >240 mg/dL High Risk Performed By: #### L 100.0500, L500.4100 #### [facility] [address] [place], [address] Cholesterol in HDL [Mass/Vol] 60 mg/dL Normal [facility] Comment on above: Result Comment: The drugs N-Acetylcysteine and Metamizole may falsely depress this assay. Reference Range HDL <40 mg/dL Low HDL Cholesterol HDL >or= 60 mg/dL High HDL Cholesterol Performed By: #### L 100.0500, L500.4100 #### [facility] [address] [place], [address] Cholesterol in LDL [Mass/Vol] 154 mg/dL High 0-130 [facility] Comment on above: Performed By: #### L 100.0500, L500.4100 #### [facility] [address] [place], [address] Cholesterol in VLDL [Mass/Vol] 32 mg/dL Normal 5-40 [facility] Comment on above: Performed By: #### L 100.0500, L500.4100 #### [facility] [address] [place], [address] Triglyceride [Mass/Vol] 160 mg/dL Normal [facility] Comment on above: Result Comment: The drugs N-Acetylcysteine and Metamizole may falsely depress this assay. Serum Triglycerides Reference Interval Normal <150 mg/dL Borderline high 150 - 199 mg/dL High 200 - 499 mg/dL Very High > or = 500 mg/dL Performed By: #### L 100.0500, L500.4100 #### [facility] [address] [place], [address] Low density lipoprotein (LDL ) cholesterol measurementOrdered By: Franklin Shah on 07-03-2024 Cholesterol in LDL [Mass/Vol] 154 mg/dL High 0-130 [facility] MCV (mean corpuscular volume ) determinationOrdered By: Franklin Shah on 07-03-2024 MCV (RBC) [Entitic vol] 90.2 fL 81-99 [facility] Mean corpuscular hemoglobin (MCH) determinationOrdered By: Franklin Shah on 07-03-2024 MCH (RBC) [Entitic mass] 30.7 pg 27.0-32.0 [facility] Mean corpuscular hemoglobin concentration (MCHC) determinationOrdered By: Franklin Shah on 07-03-2024 MCHC (RBC) [Mass/Vol] 34.0 g/dL 32-36 [facility] Mean platelet volume determi nationOrdered By: Franklin Shah on 07-03-2024 Platelet mean volume (Bld) [Entitic vol] 9.4 fL 6.2-12.0 [facility] Platelet countOrdered By: Kathrine Shah on 07-03-2024 Platelets (Bld) [#/Vol] 310 10*3/uL 150-450 [facility] Prothrombin Time w/INRon INR Coag (PPP) [Relative time] 2.8 {INR} Normal [facility] Comment on above: Performed By: #### L 300.3900 #### [facility] [address] [place], [place], [id number] PT Coag (PPP) [Time] 30.0 s High 11.7-14.9 [facility] Comment on above: Performed By: #### L 300.3900 #### [facility] [address] [place], [place], [phone] Prothrombin timeOrdered By: Miri Galdamez on 07-03-2024 PT Coag (PPP) [Time] 30.0 s High 11.7-14.9 [facility] RBC Auto (Bld) [#/Vol]Ordere d By: Franklin Shah on 07-03-2024 RBC (Bld) [#/Vol] 5.12 10*6/uL 4.2-5.4 [facility] Serum or plasma cholesterol measurement (mass/volume)Ordered By: Franklin Shah on 07-03-2024 Cholesterol [Mass/Vol] 246 mg/dL High <200 [facility] Comment on above: <200 mg/dL Desirable 200-240 mg/dL Borderline >240 mg/dL High Risk Triglycerides measurementOrd ered By: Franklin Shah on 07-03-2024 Triglyceride [Mass/Vol] 160 mg/dL <199 [facility] Comment on above: The drugs N-Acetylcy steine and Metamizole may falsely depress this assay.Serum Triglycerides Reference Interval Normal <150 mg/dL Borderline high 150 - 199 mg/dL High 200 - 499 mg/dL Very High > or = 500 mg/dL Very low density lipoprotein (VLDL) cholesterol measurementOrdered By: Franklin Shah on 07-03-2024 VLDL Cholesterol 32 mg/dL 5-40 [facility] White blood cell (WBC) count Ordered By: Franklin Shah on 07-03-2024 WBC (Bld) [#/Vol] 6.4 10*3/uL 4.4-11.0 [facility] normalized rat io (INR) calculationOrdered By: Miri Galdamez on 05-29-2024 INR Coag (Bld) [Relative time] 2.6 {INR} [facility] Prothrombin Time w/INRon INR Coag (PPP) [Relative time] 2.6 {INR} Normal [facility] Comment on above: Performed By: #### L 300.3900 #### [facility] [address] [place], [address] PT Coag (PPP) [Time] 28.1 s High 11.7-14.9 [facility] Comment on above: Performed By: #### L 300.3900 #### [facility] [address] [place], [address] Prothrombin timeOrdered By: Miri Galdamez on 05-29-2024 PT Coag (PPP) [Time] 28.1 s High 11.7-14.9 [facility] Prothrombin Time w/INRon INR Coag (PPP) [Relative time] 2.4 {INR} Normal [facility] Comment on above: Performed By: #### L 300.3900 #### [facility] [address] [place], [address] PT Coag (PPP) [Time] 26.3 s High 11.7-14.9 [facility] Comment on above: Performed By: #### L 300.3900 #### [facility] [address] [place], [address] Prothrombin Time w/INRon INR Coag (PPP) [Relative time] 2.2 {INR} Normal [facility] Comment on above: Performed By: #### L 300.3900 #### [facility] [address] [place], [address] PT Coag (PPP) [Time] 24.1 s High 11.7-14.9 [facility] Comment on above: Performed By: #### L 300.3900 #### [facility] [address] [place], [address] Prothrombin Time w/INRon INR Coag (PPP) [Relative time] 2.2 {INR} Normal [facility] Comment on above: Performed By: #### L 300.3900 #### [facility] [address] [place], [address] PT Coag (PPP) [Time] 24.3 s High 11.7-14.9 [facility] Comment on above: Performed By: #### L 300.3900 #### [facility] [address] [place], [address] Prothrombin Time w/INRon INR Coag (PPP) [Relative time] 3.6 {INR} Normal [facility] Comment on above: Performed By: #### L 300.3900 #### [facility] [address] [place], [address] PT Coag (PPP) [Time] 35.6 s High 11.7-14.9 [facility] Comment on above: Performed By: #### L 300.3900 #### [facility] [address] [place], [address] Prothrombin Time w/INRon INR Coag (PPP) [Relative time] 3.8 {INR} Normal [facility] Comment on above: Performed By: #### L 300.3900 #### [facility] [address] [place], [address] PT Coag (PPP) [Time] 37.2 s High 11.7-14.9 [facility] Comment on above: Performed By: #### L 300.3900 #### [facility] [address] [place], [address] Prothrombin Time w/INRon INR Coag (PPP) [Relative time] 3.7 {INR} Normal [facility] Comment on above: Performed By: #### L 300.3900 #### [facility] [address] [place], [address] PT Coag (PPP) [Time] 36.1 s High 11.7-14.9 [facility] Comment on above: Performed By: #### L 300.3900 #### [facility] [address] [place], [address] Prothrombin Time w/INRon INR Coag (PPP) [Relative time] 2.5 {INR} Normal [facility] Comment on above: Performed By: #### L 300.3900 #### [facility] [address] [place], [address] PT Coag (PPP) [Time] 26.9 s High 11.7-14.9 [facility] Comment on above: Performed By: #### L 300.3900 #### [facility] [address] [place], [address] Laboratory - CoagulationOrde red By: Miri Galdamez on 09-20-2023 INR Coag (Bld) [Relative time] 2.0 {INR} [facility] PT Coag (PPP) [Time] 22.9 s 11.7-14.9 [facility] - CoagulationOrde red By: Raymundo Dawn on 07-26-2023 PT Coag (PPP) [Time] 22.9 s 11.7-14.9 [facility] Platelet poor plasma interna tional normalized ratio (INR)Ordered By: Raymundo Dawn on 07-26-2023 INR Coag (PPP) [Relative time] 2.0 {INR} [facility] - CoagulationOrde red By: Miri Galdamez on 06-28-2023 PT Coag (PPP) [Time] 24.1 s 11.7-14.9 [facility] Whole blood international no rmalized ratio (INR)Ordered By: Miri Galdamez on 06-28-2023 INR Coag (Bld) [Relative time] 2.1 {INR} [facility] INR in Blood by Coagulation assayOrdered By: Miri Galdamez on 05-31-2023 INR Coag (Bld) [Relative time] 2.1 {INR} [facility] - CoagulationOrde red By: Miri Galdamez on 05-31-2023 PT Coag (PPP) [Time] 23.3 s 11.7-14.9 [facility] INR in Blood by Coagulation assayOrdered By: Miri Galdamez on 05-03-2023 INR Coag (Bld) [Relative time] 2.4 {INR} [facility] - CoagulationOrde red By: Miri Galdamez on 05-03-2023 PT Coag (PPP) [Time] 26.4 s 11.7-14.9 [facility] INR in Blood by Coagulation assayOrdered By: Miri Galdamez on 04-05-2023 INR Coag (Bld) [Relative time] 2.9 {INR} [facility] - CoagulationOrde red By: Miri Galdamez on 04-05-2023 PT Coag (PPP) [Time] 30.9 s 11.7-14.9 [facility] INR in Blood by Coagulation assayOrdered By: Miri Galdamez on 03-08-2023 INR Coag (Bld) [Relative time] 2.2 {INR} [facility] - CoagulationOrde red By: Miri Galdamez on 03-08-2023 PT Coag (PPP) [Time] 24.8 s 11.7-14.9 [facility] INR in Blood by Coagulation assayOrdered By: Miri Galdamez on 02-08-2023 INR Coag (Bld) [Relative time] 2.2 {INR} [facility] - CoagulationOrde red By: Miri Galdamez on 02-08-2023 PT Coag (PPP) [Time] 25.0 s 11.7-14.9 [facility] INR in Blood by Coagulation assayOrdered By: Miri Galdamez on 01-11-2023 INR Coag (Bld) [Relative time] 2.3 {INR} [facility] - CoagulationOrde red By: Miri Galdamez on 01-11-2023 PT Coag (PPP) [Time] 25.5 s 11.7-14.9 [facility] INR in Blood by Coagulation assayOrdered By: Miri Galdamez on 12-21-2022 INR Coag (Bld) [Relative time] 3.0 {INR} [facility] - CoagulationOrde red By: Miri Galdamez on 12-21-2022 PT Coag (PPP) [Time] 31.7 s 11.7-14.9 [facility] Basophil percentageOrdered B y: Dr. Arenas on 11-23-2022 Cholesterol [Mass/Vol] 198 mg/dL <200 [facility] Comment on above: <200 mg/dL Desirable 200-240 mg/dL Borderline >240 mg/dL High Risk Triglyceride [Mass/Vol] 230 mg/dL <199 [facility] Comment on above: The drugs N-Acetylcy steine and Metamizole may falsely depress this assay.Serum Triglycerides Reference Interval Normal <150 mg/dL Borderline high 150 - 199 mg/dL High 200 - 499 mg/dL Very High > or = 500 mg/dL INR in Blood by Coagulation assayOrdered By: Miri Galdamez on 11-23-2022 INR Coag (Bld) [Relative time] 2.5 {INR} [facility] - CoagulationOrde red By: Miri Galdamez on 11-23-2022 PT Coag (PPP) [Time] 26.9 s 11.7-14.9 [facility] Serum or plasma cholesterol in HDL measurement (mass/volume)Ordered By: Dr. Arenas on 11-23-2022 Cholesterol in HDL [Mass/Vol] 52 mg/dL >40 [facility] Comment on above: The drugs N-Acetylcy steine and Metamizole may falsely depress this assay. Reference Range HDL <40 mg/dL Low HDL Cholesterol HDL >or= 60 mg/dL High HDL Cholesterol Serum or plasma cholesterol in VLDL measurement (mass/volume)Ordered By: Dr. Arenas on 11-23-2022 Cholesterol in VLDL [Mass/Vol] 46 mg/dL 5-40 [facility] Serum or plasma low density lipoprotein (LDL) cholesterol measurement (mass/volume)Ordered By: Dr. Arenas on 11-23-2022 Cholesterol in LDL [Mass/Vol] 100 mg/dL 0-130 [facility] INR in Blood by Coagulation assayOrdered By: Miri Galdamez on 11-09-2022 INR Coag (Bld) [Relative time] 2.6 {INR} [facility] - CoagulationOrde red By: Miri Galdamez on 11-09-2022 PT Coag (PPP) [Time] 27.8 s 11.7-14.9 [facility] Basophil percentageOrdered B y: Caty Bautista on 10-19-2022 Chloride [Moles/Vol] 111 mmol/L 98-107 [facility] Glucose [Mass/Vol] 82 mg/dL 74-106 [facility] Potassium [Moles/Vol] 4.8 mmol/L 3.5-5.1 [facility] Sodium [Moles/Vol] 140 mmol/L 136-145 [facility] WBC (Bld) [#/Vol] 4.8 10*3/uL 4.4-11.0 [facility] Blood erythrocytes count (nu mber/volume)Ordered By: Caty Bautista on 10-19-2022 RBC (Bld) [#/Vol] 5.20 10*6/uL 4.2-5.4 [facility] Blood hemoglobin measurement (mass/volume)Ordered By: Caty aButista on 10-19-2022 Hemoglobin (Bld) [Mass/Vol] 15.7 g/dL 12.0-15.0 [facility] Blood platelet mean volumeOr dered By: Caty Bautista on 10-19-2022 Platelet mean volume (Bld) [Entitic vol] 9.9 fL 6.2-12.0 [facility] Determination of erythrocyte mean corpuscular volume (MCV)Ordered By: Caty Bautista on 10-19-2022 MCV (RBC) [Entitic vol] 93.1 fL 81-99 [facility] Hematocrit Auto (Bld) [Volum e fraction]Ordered By: Caty Bautista on 10-19-2022 Hematocrit (Bld) [Volume fraction] 48.4 % 37-47 [facility] INR in Blood by Coagulation assayOrdered By: Caty Bautista on 10-19-2022 INR Coag (Bld) [Relative time] 1.6 {INR} [facility] - Chemistry and C hemistry - challengeOrdered By: Caty Bauitsta on 10-19-2022 CO2 [Moles/Vol] 27.0 mmol/L 21.0-32.0 [facility] Magnesium [Mass/Vol] 2.3 mg/dL 1.6-2.6 [facility] Urea nitrogen/Creatinine [Mass ratio] 14.5 mg/mg 10-20 [facility] - CoagulationOrde red By: Caty Bautista on 10-19-2022 PT Coag (PPP) [Time] 19.5 s 11.7-14.9 [facility] - Hematology and Cell countsOrdered By: Caty Bautista on 10-19-2022 Erythrocyte distribution width (RBC) [Entitic vol] 44.4 fL 35.1-43.9 [facility] Erythrocyte distribution width (RBC) [Ratio] 13.0 % 11.6-14.6 [facility] MCH (RBC) [Entitic mass] 30.2 pg 27.0-32.0 [facility] MCHC Auto (RBC) [Mass/Vol]Or dered By: Caty Bautista on 10-19-2022 MCHC (RBC) [Mass/Vol] 32.4 g/dL 32-36 [facility] No Panel InformationOrdered By: Caty Bautista on 10-19-2022 Estimated GFR (MDRD) Amer 99 mL/min >60 [facility] Comment on above: GFR Calc Estimated GFR (MDRD) Non-Af Amer 82 mL/min >60 [facility] Comment on above: Non- GFR Calc Thyroid Stimulating Hormone (TSH) 1.00 uIU/mL 0.358-3.74 [facility] Platelets bldOrdered By: Srinivas Bautista on 10-19-2022 Platelets (Bld) [#/Vol] 323 10*3/uL 150-450 [facility] Serum or plasma calcium jamilah urement (mass/volume)Ordered By: Caty Bautista on 10-19-2022 Calcium [Mass/Vol] 9.7 mg/dL 8.5-10.1 [facility] Serum or plasma creatinine m easurement (mass/volume)Ordered By: Caty Bautista on 10-19-2022 Creatinine [Mass/Vol] 0.83 mg/dL 0.55-1.02 [facility] Comment on above: The validity of the calculated GFR & GFRAA in patients over 70 years has not been determined. Clinical correlation is essential. Serum or plasma urea nitroge n measurement (mass/volume)Ordered By: Caty Bautista on 10-19-2022 Urea nitrogen [Mass/Vol] 12 mg/dL 7-18 [facility] Thin prep Papanicolaou smear with manual screeningOrdered By: Caty Bautista on 10-19-2022 Thin prep Papanicolaou smear with manual screening 2 5-15 [facility] INR in Blood by Coagulation assayOrdered By: Miri Galdamez on 08-31-2022 INR Coag (Bld) [Relative time] 2.3 {INR} [facility] - CoagulationOrde red By: Miri Galdamez on 08-31-2022 PT Coag (PPP) [Time] 24.6 s 11.7-14.9 [facility] INR in Blood by Coagulation assayOrdered By: Dr. Terrell on 08-03-2022 INR Coag (Bld) [Relative time] 2.2 {INR} [facility] - CoagulationOrde red By: Dr. Terrell on 08-03-2022 PT Coag (PPP) [Time] 24.2 s 11.7-14.9 [facility] INR in Blood by Coagulation assayOrdered By: Miri Galdamez on 07-06-2022 INR Coag (Bld) [Relative time] 2.1 {INR} [facility] - CoagulationOrde red By: Miri Galdamez on 07-06-2022 PT Coag (PPP) [Time] 23.6 s 11.7-14.9 [facility] INR in Blood by Coagulation assayOrdered By: Miri Galdamez on 06-08-2022 INR Coag (Bld) [Relative time] 2.1 {INR} [facility] - CoagulationOrde red By: Miri Galdamez on 06-08-2022 PT Coag (PPP) [Time] 23.1 s 11.7-14.9 [facility] INR in Blood by Coagulation assayOrdered By: Miri Galdamez on 05-11-2022 INR Coag (Bld) [Relative time] 2.3 {INR} [facility] - CoagulationOrde red By: Miri Galdamez on 05-11-2022 PT Coag (PPP) [Time] 24.7 s 11.7-14.9 [facility] INR in Blood by Coagulation assayOrdered By: Miri Galdamez on 04-20-2022 INR Coag (Bld) [Relative time] 2.2 {INR} [facility] - CoagulationOrde red By: Miri Galdamez on 04-20-2022 PT Coag (PPP) [Time] 24.2 s 11.7-14.9 [facility] - Microbiology an d Antimicrobial susceptibilityon 03-23-2022 S. pyogenes Ag IA Ql (Unsp spec) Negative [facility] Work Phone: INR in Blood by Coagulation assayon 03-16-2022 INR Coag (Bld) [Relative time] 3.3 {INR} [facility] Work Phone: Laboratory - Coagulationon 0 03-16-2022 PT Coag (PPP) [Time] 33.4 s 11.7-14.9 [facility] Work Phone: INR in Blood by Coagulation assayon 01-26-2022 INR Coag (Bld) [Relative time] 2.2 {INR} [facility] Work Phone: [phone] Laboratory - Coagulationon 0 8- PT Coag (PPP) [Time] 23.7 s 11.7-14.9 [facility] Work Phone: INR in Blood by Coagulation assayon 01-05-2022 INR Coag (Bld) [Relative time] 2.3 {INR} [facility] Work Phone: Laboratory - Coagulationon 0 01-05-2022 PT Coag (PPP) [Time] 25.1 s 11.7-14.9 [facility] Work Phone: Absolute lymphocyte counton 11-29-2021 Lymphocytes Auto (Unsp spec) [#/Vol] 1.65 10*3/uL 0.83-4.51 [facility] Work Phone: Basophil percentageon 2021 Basophils/100 WBC (Bld) 0.9 % 0-1 [facility] Work Phone: [phone] Bilirubin [Mass/Vol] 0.40 mg/dL 0.20-1.00 [facility] Work Phone: Comment on above: For patients on eltr ombopag therapy, use of Dimension [place] TBIL is not recommended. Chloride [Moles/Vol] 107 mmol/L 98-107 [facility] Work Phone: Cholesterol [Mass/Vol] 212 mg/dL <200 [facility] Work Phone: Comment on above: <200 mg/dL Desirable 200-240 mg/dL Borderline >240 mg/dL High Risk Eosinophils/100 WBC (Bld) 1.7 % 0-5 [facility] Work Phone: Glucose [Mass/Vol] 81 mg/dL 74-106 [facility] Work Phone: Neutrophils (Bld) [#/Vol] 3.1 10*3/uL 2.0-7.7 [facility] Work Phone: Neutrophils/100 WBC (Bld) 57.9 % 47-70 [facility] Work Phone: Potassium [Moles/Vol] 4.3 mmol/L 3.5-5.1 [facility] Work Phone: Protein [Mass/Vol] 7.4 g/dL 6.4-8.2 [facility] Work Phone: Sodium [Moles/Vol] 140 mmol/L 136-145 [facility] Work Phone: Triglyceride [Mass/Vol] 234 mg/dL <199 [facility] Work Phone: Comment on above: The drugs N-Acetylcy steine and Metamizole may falsely depress this assay.Serum Triglycerides Reference Interval Normal <150 mg/dL Borderline high 150 - 199 mg/dL High 200 - 499 mg/dL Very High > or = 500 mg/dL WBC (Bld) [#/Vol] 5.4 10*3/uL 4.4-11.0 [facility] Work Phone: Blood erythrocytes count (nu mber/volume)on 11-29-2021 RBC (Bld) [#/Vol] 5.20 10*6/uL 4.2-5.4 [facility] Work Phone: Blood hemoglobin measurement (mass/volume)on 11-29-2021 Hemoglobin (Bld) [Mass/Vol] 15.8 g/dL 12.0-15.0 [facility] Work Phone: Blood lymphocytes/100 leukoc yteson 11-29-2021 Lymphocytes/100 WBC (Bld) 30.6 % 19-41 [facility] Work Phone: Blood monocytes/100 leukocyt eson 11-29-2021 Monocytes/100 WBC (Bld) 8.7 % 0-10 [facility] Work Phone: Blood platelet mean volumeon 11-29-2021 Platelet mean volume (Bld) [Entitic vol] 9.8 fL 6.2-12.0 [facility] Work Phone: Determination of erythrocyte mean corpuscular volume (MCV)on 11-29-2021 MCV (RBC) [Entitic vol] 92.7 fL 81-99 [facility] Work Phone: Hematocrit Auto (Bld) [Volum e fraction]on 11-29-2021 Hematocrit (Bld) [Volume fraction] 48.2 % 37-47 [facility] Work Phone: INR in Blood by Coagulation assayon 11-29-2021 INR Coag (Bld) [Relative time] 2.8 {INR} [facility] Work Phone: Laboratory - Chemistry and C hemistry - challengeon 11-29-2021 ALP [Catalytic activity/Vol] 56 U/L 45-117 [facility] Work Phone: ALT [Catalytic activity/Vol] 23 U/L 13-56 [facility] Work Phone: CO2 [Moles/Vol] 27.0 mmol/L 21.0-32.0 [facility] Work Phone: Globulin (S) [Mass/Vol] 3.5 g/dL 2.2-4.2 [facility] Work Phone: Urea nitrogen/Creatinine [Mass ratio] 14.1 mg/mg 10-20 [facility] Work Phone: Laboratory - Coagulationon 0 11-29-2021 PT Coag (PPP) [Time] 29.3 s 11.7-14.9 [facility] Work Phone: Laboratory - Hematology and Cell countson 11-29-2021 Erythrocyte distribution width (RBC) [Entitic vol] 43.6 fL 35.1-43.9 [facility] Work Phone: Erythrocyte distribution width (RBC) [Ratio] 12.8 % 11.6-14.6 [facility] Work Phone: Immature granulocytes/100 WBC (Bld) 0.200 % 0.0-0.9 [facility] Work Phone: Comment on above: IG% - Immature Granu locytes (promyelocytes, myelocytes and metamyelocytes) > 1% indicates that a LEFT SHIFT is Present. MCH (RBC) [Entitic mass] 30.4 pg 27.0-32.0 [facility] Work Phone: Nucleated RBC/100 WBC (Bld) [Ratio] 0 % 0-5 [facility] Work Phone: MCHC Auto (RBC) [Mass/Vol]on 11-29-2021 MCHC (RBC) [Mass/Vol] 32.8 g/dL 32-36 [facility]: No Panel Informationon 11-29 Estimated GFR (MDRD) Amer 97 mL/min >60 [facility] Work Phone: Comment on above: GFR Calc Estimated GFR (MDRD) Non-Af Amer 80 mL/min >60 [facility] Work Phone: Comment on above: Non- GFR Calc Platelets bldon 11-29-2021 Platelets (Bld) [#/Vol] 276 10*3/uL 150-450 [facility] Work Phone: Serum or plasma albumin jamilah urement (mass/volume)on 11-29-2021 Albumin [Mass/Vol] 3.9 g/dL 3.2-5.0 [facility] Work Phone: Serum or plasma albumin/glob ulin mass ratioon 11-29-2021 Albumin/Globulin [Mass ratio] 1.1 {ratio} 0.9-2.4 [facility] Work Phone: Serum or plasma calcium jamilah urement (mass/volume)on 11-29-2021 Calcium [Mass/Vol] 9.5 mg/dL 8.5-10.1 [facility] Work Phone: Serum or plasma cholesterol in HDL measurement (mass/volume)on 11-29-2021 Cholesterol in HDL [Mass/Vol] 49 mg/dL >40 [facility] Work Phone: Comment on above: The drugs N-Acetylcy steine and Metamizole may falsely depress this assay. Reference Range HDL <40 mg/dL Low HDL Cholesterol HDL >or= 60 mg/dL High HDL Cholesterol Serum or plasma cholesterol in VLDL measurement (mass/volume)on 11-29-2021 Cholesterol in VLDL [Mass/Vol] 47 mg/dL 5-40 [facility] Work Phone: Serum or plasma creatinine m easurement (mass/volume)on 11-29-2021 Creatinine [Mass/Vol] 0.85 mg/dL 0.55-1.02 [facility] Work Phone: Comment on above: The validity of the calculated GFR & GFRAA in patients over 70 years has not been determined. Clinical correlation is essential. Serum or plasma low density lipoprotein (LDL) cholesterol measurement (mass/volume)on 11-29-2021 Cholesterol in LDL [Mass/Vol] 116 mg/dL 0-130 [facility] Work Phone: Serum or plasma urea nitroge n measurement (mass/volume)on 11-29-2021 Urea nitrogen [Mass/Vol] 12 mg/dL 7-18 [facility] Work Phone: Thin prep Papanicolaou smear with manual screeningon 11-29-2021 Thin prep Papanicolaou smear with manual screening 16 U/L 15-37 [facility] Work Phone: Thin prep Papanicolaou smear with manual screening 6 5-15 [facility] Work Phone: INR in Blood by Coagulation assayon 10-25-2021 INR Coag (Bld) [Relative time] 2.6 {INR} [facility] Work Phone: Laboratory - Coagulationon 0 10-25-2021 PT Coag (PPP) [Time] 27.4 s 11.7-14.9 [facility] Work Phone: INR in Blood by Coagulation assayon 09-25-2021 INR Coag (Bld) [Relative time] 2.3 {INR} [facility] Work Phone: Laboratory - Coagulationon 0 09-25-2021 PT Coag (PPP) [Time] 24.3 s 11.7-14.9 [facility] Work Phone: INR in Blood by Coagulation assayon 08-28-2021 INR Coag (Bld) [Relative time] 2.8 {INR} [facility] Work Phone: Laboratory - Coagulationon 0 08-28-2021 PT Coag (PPP) [Time] 28.6 s 11.7-14.9 [facility] Work Phone: INR in Blood by Coagulation assayon 07-31-2021 INR Coag (Bld) [Relative time] 2.6 {INR} [facility] Work Phone: Laboratory - Coagulationon 0 07-31-2021 PT Coag (PPP) [Time] 26.9 s 11.7-14.9 [facility] Work Phone: INR in Blood by Coagulation assayon 06-26-2021 INR Coag (Bld) [Relative time] 2.9 {INR} [facility] Work Phone: Laboratory - Coagulationon 0 06-26-2021 PT Coag (PPP) [Time] 29.1 s 11.7-14.9 [facility] Work Phone: INR in Blood by Coagulation assayon 05-29-2021 INR Coag (Bld) [Relative time] 2.9 {INR} [facility] Work Phone: Laboratory - Coagulationon 1 07-30-2020 PT Coag (PPP) [Time] 29.6 s 11.7-14.9 [facility] Work Phone: CHEST 2 VIEWSon 11-14-2017 CHEST 2 VIEWS Performed at [facility] APPROVED BY: Ravi Ag MD EXAMINATION: CHEST RADIOGRAPH (2 VIEW FRONTAL & LATERAL) Clinical History: Shortness of breathMQ: XC2_5Comparison: 05/26/2005 RESULT: Lines, tubes, and devices: None. Lungs and pleura: No consolidation. No lung mass. No pleural effusion. Cardiomediastinal silhouette: The heart size is normal. Again noted is narrowing of the AP diameter of the chest. Other: There are postoperative changes with sternotomy wires and surgical screws. IMPRESSION: No acute radiographic abnormality. Postsurgical changes. Normal [facility] ED NOTEon 11-14-2017 ED NOTE HNO ID: [id number] thor: Madison (Rn) JESSICA Petersonervice: Emergency MedicineAuthor Type: Registered NurseType: ED NotesFiled: 11/14/2017 8:00 PMNote Text:Patient discharged to home, accompanied by family. Discharge instructionsgiven to patient, discharge teaching performed, Patient verbalizedunderstanding of discharge instructions and follow-up care, Patient [id number]. Patient ambulates without difficulty.Belongings remain with patient, Valuables remain with patient. Normal [facility] ED NOTE HNO ID: [id number] Author: Farshad (Rn) KRISTI Dukes Service: Emergency Medicine Author Type: Registered Nurse Type: ED Notes Filed: 11/14/2017 6:26 PM Note Text: Pt's cxr called for Normal [facility] ED PROV NOTEon 11-14-2017 ED PROV NOTE HNO ID: [id number] thor: ALEX Martínez Reservice: Emergency MedicineAuthor Type: ResidentType: ED Provider NotesFiled: 11/14/2017 8:10 PMNote Text: -------Attestation signed by Juan Manuel Duffy DO at 11/14/2017 8:57 PMSignature: RAFA Brockate: 11/14/2017Time: 8:57 PM ----ED Provider NotePatient Name: Judy Lindsay MarileeN: [id number] DATE: 11/14/17HistoryPatient presents with:Difficulty Breathing: Pt. c/o intermittent sob for the past few days butshe has been constantly sob since 1430 today. Pt. c/o R rib pain. Lungsounds clear throughout. Pt. also has had a dry cough for 1 1/2 weeks. Pt.denies recent injury or trauma.32 yof with h/o pectus excavatum, MVP, afib/aflutter s/p ablation presentswith shortness of breath. She states that she has had episodes before ofcough and shortness of breath but she has not been formally diagnosed withasthma or other lung disease. She has seen a cafeteria food server before. Shestates that she has been having cough for a few days that worsened thisafternoon. She did not identify any particular trigger for the coughing orshortness of breath. She is not a smoker. She reports that prior episodeshave been treated with breathing treatments and steroids. She is notcurrently on any medications. She has previously been on coumadin andcardizem but those medications were discontinued this past April.PAST MEDICAL HISTORYDiagnosis Date- Asthma- Kidney Stone ??- Mitral Valve Disorders MVP, mitral regurgitation.- PFO (Patent Foramen Ovale)PAST SURGICAL HISTORYProcedure Laterality Date- PAST SURGICAL HISTORY OF 2000, 2001 pectus excavatum repair- REMOVAL OF TONSILS,<12 Y/O TonsillectomyFAMILY HISTORYProblem Relation Age of Onset- Hypertension Mother- Hypertension Father- Lipids Father- Coronary Artery Disease Father LVH- None Sister LVH- None Sister five sisters alive and well.Social HistorySocial History Main Topics- Smoking status: Never Smoker- Smokeless tobacco: Not on file- Alcohol use No- Drug use: No- Sexual activity: Not on fileALLERGIESAllergen Reactions- Vicodin [Hydrocodon*Review of SystemsConstitutional: Negative for fever.Respiratory: Positive for cough and shortness of breath.All other systems reviewed and are negative.Physical ExamBP 125/72 Pulse 105 Temp 97.5 Resp 26 Ht 5' 9 (1.75m) Wt 140 lb(63.5kg) SpO2 100% BMI 20.67 kg/(m2).Physical ExamConstitutional: She is oriented to person, place, and time. No distress.HENT:Head: Normocephalic and atraumatic.Mouth/Throat: No oropharyngeal exudate.Eyes: Conjunctivae and EOM are normal. Pupils are equal, round, andreactive to light. Right eye exhibits no discharge. Left eye exhibits nodischarge.Neck: Normal range of motion. Neck supple. No tracheal deviation present.Cardiovascular: Normal rate and intact distal pulses. Exam reveals nogallop.No murmur heard.Pulmonary/Chest: Breath sounds normal. No stridor. She is in respiratorydistress. She has no wheezes.Lungs CTABNo wheezing+RetractionsAbdomi nal: Soft. Bowel sounds are normal. She exhibits no distension.There is no tenderness.Abdomen soft, non-peritoneal, non-tenderMusculoskeletal: Normal range of motion. She exhibits no edema, tendernessor deformity.Neurological: She is alert and oriented to person, place, and time. Nocranial nerve deficit.Skin: Skin is warm and dry. Capillary refill takes less than 2 seconds. Norash noted. She is not diaphoretic. No erythema. No pallor.Nursing note and vitals reviewed.Diagnostic TestingED Labs Ordered and Reviewed - No data to displayProceduresMedical Decision MakingMDMShe presents with retractions. No wheezing.Oxygen saturations 100% on RA.EKG was nonacute, no arrhythmia.CXR was negative for acute process.She was administered breathing treatments, steroids and ativan.Symptoms improved after treatment.Recommendation was for outpatient steroids and f/u with pcp. She was givenreferral to a new pcp.Return precautions for worsening or concerning symptoms were discussed.She agreed to plan of care and was discharged home in stable condition.ED Course / Clinical ImpressionED Course as of Nov 14 2004Others' DocumentationThu November 14, 20171911 Attending NoteI personally saw and examined the patient. I reviewed the resident'snote. I agree with the resident's assessment and plan unless otherwisenoted.I supervised the bell portion(s) of procedures performed on this patient bythe resident physician.This is a 32-year-old female who's emotionally charged these. She ishyperventilating complaining of tingling in her fingers and hands justfinishing up a breathing treatment. She is modestly tachycardic, on thebedside monitor about 148 consistent with sinus tach. Her vitals has notbeen that tachycardic without comes and goes depending on how emotionallycharged issues at the moment.On my exam her lungs are clear as are chest x-ray was unremarkable andvery emotional component to her presentation today and I'm not concernedabout her chest pain from either cardiac or thromboembolic standpoint. Iwould like to give her a little bit of an anxiolytic and and have somemore conversation with her to see with the root of her her complaint isSaturday. [SH]ED Course User Index[SH] Juan Manuel Duffy, DOClinical Impressions as of Nov 14 2004Shortness of breathPlanThe patient was DISCHARGED: Counseled patient regarding radiology resultsAND suspected diagnosis AND need for follow-up. Discharged home with verbaland written instructions. They were instructed to return as needed forpersistent or worsening symptoms or any new concerns.Condition at time of disposition: stableSIGNATURE: Rachael Carey, MDDacia (Res) RAPHAEL Careyesident11/14/172009Stniesha Duffy, DO11/14/172056 [facility] EKG (AK,AV,EU,FV,HL,FLORIAN,MM,SP )on 11-14-2017 EKG (AK,AV,EU,FV,HL,FLORIAN,MM, SP) NAME : ROBIN HUA : [id number] : 1985 Gender : FemaleRace : CaucasianORD : [id number] Procedure Date : Nov 14 2017 17:47Edit Date : Nov 15 2017 10:01 Diagnosis:NORMAL SINUS RHYTHMNORMAL ECGNO PREVIOUS ECGS AVAILABLEConfirmed by MD Dejesus Thomas ([id number]) on 11/15/2017 10:01:06 AM Ventricular Rate : 96 BPMAtrial Rate : 96 BPMP-R Interval : 138 msQRS Duration : 76 msQ-T Interval : 356 msQTC Calculation(Bezet) : 449 msP [place] : 74 degreesR [place] : 74 degreesT [place] : 54 degrees Test Reason : Arrhythmia Location : 4 : [facility] ED Overread By : MD Dejesus ThomasEditted By : MD Dejesus ThomasReferred By : Nilam DUFFYquired by : Shy Bates [facility] PLAN OF CAREon 11-14-2017 PLAN OF CARE HNO ID: [id number] thor: Adalid Gale (Bus Boy)Service: (none)Author Type: TechnicianType: Plan of CareFiled: 11/14/2017 6:10 PMNote Text:MEDICATION HISTORYPatient Name:Valeri HuaMRN: [id number]: 1985Source of history:Patient: Reliability of source: Appears reliable,clearly identified: Medication name, Medication dose, Medication routeand Medication frequencyMedication Nonadherence Identified: No barriers notedThe above information represents the best possible medication history: YesAdditional comments: Pt. states she had not used a pharmacy in over 90days and is not using any RX meds.Allergies:ALLERGIESAl lergen Reactions- Vicodin [Hydrocodon*Preferred Pharmacy: None identified.Current [facility] Medications:Prior to Admission medications as of 11/14/17 1805Medication Sig Last Dose TakingMULTI-VITAMIN ORAL Take 1 tablet by mouth once daily. 11/13/2017 Yesacetaminophen (TYLENOL) 325 mg tablet Take 325 mg by mouth as needed. Yessennosides (LAXATIVE ORAL) Take by mouth as directed. 10/15/2017 YesLIDOCAINE 5 % (700 MG/PATCH) ADHESIVE PATCH Apply one(1) patch to affectedarea once daily. Remove patch after 12 hours.MULTIVITAMIN,TX-IRON -MINERALS 27 MG-0.4 MG TAB 1 Tab ORAL DAILYOMEPRAZOLE 20 MG CAP, DELAYED RELEASE 1 Cap ORAL DAILY x 2 weeksDOCUSATE SODIUM 100 MG CAP 1 Cap ORAL 2 TIMES DAILYASPIRIN 81 MG CHEWABLE TAB 1 Tab ORAL DAILYFUROSEMIDE 20 MG TAB Take one(1) tablet daily.potassium chloride(MICRO-K 10 MEQ CAP) Take one tablet daily x 5 days Halima Gale (Bus Boy) WK pager [id number] 2017 6:07 PM Normal [facility] Vital Signs Date Time Vital Sign Value Performing Clinician Karyn anne 12-31-2024 10:45-0400 Body height 175.[address] Ezra Arenas MD Work Phone: [facility] 12-31-2024 10:45-0400 Body mass index (BMI) [Ratio] 24.5 kg/m2 Dr. Ezra Arenas MD Work Phone: [facility] 12-31-2024 10:45-0400 Body weight 75.[address] Ezra Arenas MD Work Phone: [facility] 12-31-2024 10:45-0400 Diastolic blood pressure 57 mm[Hg] Dr. Ezra Arenas MD Work Phone: [facility] 12-31-2024 10:45-0400 Heart rate 63 /min Dr. Ezra Arenas MD Work Phone: [facility] 12-31-2024 10:45-0400 Respiratory rate 16 /min Dr. Ezra Arenas MD Work Phone: [facility] 12-31-2024 10:45-0400 Systolic blood pressure 93 mm[Hg] Dr. Ezra Arenas MD Work Phone: [facility] 12-02-2024 10:57-0400 Body height 175.[address] Ezra Arenas MD Work Phone: [facility] 12-02-2024 10:57-0400 Body mass index (BMI) [Ratio] 24.2 kg/m2 Dr. Ezra Arenas MD Work Phone: [facility] 12-02-2024 10:57-0400 Body temperature 98 [degF] Dr. Ezra Arenas MD Work Phone: [facility] 12-02-2024 10:57-0400 Body weight 74.[address] Ezra Arenas MD Work Phone: [facility] 12-02-2024 10:57-0400 Diastolic blood pressure 62 mm[Hg] Dr. Ezra Arenas MD Work Phone: [facility] 12-02-2024 10:57-0400 Heart rate 69 /min Dr. Ezra Arneas MD Work Phone: [facility] 12-02-2024 10:57-0400 Respiratory rate 18 /min Dr. Ezra Arenas MD Work Phone: [facility] 12-02-2024 10:57-0400 SaO2% (BldA) [Mass fraction] 99 % Dr. Ezra Arenas MD Work Phone: [facility] 12-02-2024 10:57-0400 Systolic blood pressure 102 mm[Hg] Dr. Ezra Arenas MD Work Phone: [facility] 11-22-2024 04:46-0400 Body mass index (BMI) [Ratio] 18.8 kg/m2 Dr. Ezra Arenas MD Work Phone: [facility] 10-21-2024 22:17-0400 Body mass index (BMI) [Ratio] 18.8 kg/m2 Dr. Ezra Arenas MD Work Phone: [facility] 09-21-2024 22:55-0400 Body mass index (BMI) [Ratio] 18.8 kg/m2 Dr. Ezra Arenas MD Work Phone: [facility] 08-22-2024 07:43-0500 Body mass index (BMI) [Ratio] 18.8 kg/m2 Dr. Ezra Arenas MD Work Phone: [facility] 07-24-2024 21:36-0500 Body mass index (BMI) [Ratio] 18.8 kg/m2 Dr. Ezra Arenas MD Work Phone: [facility] 07-03-2024 10:12-0500 Body height 175.[address] Ezra Arenas MD Work Phone: [facility] 07-03-2024 10:12-0500 Body mass index (BMI) [Ratio] 23.8 kg/m2 Dr. Ezra Arenas MD Work Phone: [facility] 07-03-2024 10:12-0500 Body weight 73.[address] Ezra Arenas MD Work Phone: [facility] 07-03-2024 10:12-0500 Diastolic blood pressure 69 mm[Hg] Dr. Ezra Arenas MD Work Phone: [facility] 07-03-2024 10:12-0500 Heart rate 66 /min Dr. Ezra Arenas MD Work Phone: [facility] 07-03-2024 10:12-0500 Respiratory rate 18 /min Dr. Ezra Arenas MD Work Phone: [facility] 07-03-2024 10:12-0500 SaO2% (BldA) [Mass fraction] 98 % Dr. Ezra Arenas MD Work Phone: [facility] 07-03-2024 10:12-0500 Systolic blood pressure 105 mm[Hg] Dr. Ezra Arenas MD Work Phone: [facility] 06-24-2024 04:55-0500 Body mass index (BMI) [Ratio] 18.8 kg/m2 Dr. Ezra Arenas MD Work Phone: [facility] 05-24-2024 01:41-0500 Body mass index (BMI) [Ratio] 18.8 kg/m2 Dr. Ezra Arenas MD Work Phone: [facility] 08-23-2023 02:51-0500 Body mass index (BMI) [Ratio] 18.8 kg/m2 Dr. Ezra Arenas Work Phone: [facility] 07-24-2023 23:04-0500 Body mass index (BMI) [Ratio] 18.8 kg/m2 Dr. Ezra Arenas Work Phone: [facility] 06-28-2023 10:27-0500 Body height 175.[address] Ezra Arenas Work Phone: [facility] 06-28-2023 09:53-0500 Body mass index (BMI) [Ratio] 22.5 kg/m2 Dr. Ezra Arenas Work Phone: [facility] 06-28-2023 09:53-0500 Body weight 69.[address] Ezra Arenas Work Phone: [facility] 06-28-2023 09:53-0500 Diastolic blood pressure 59 mm[Hg] Dr. Ezra Arenas Work Phone: [facility] 06-28-2023 09:53-0500 Heart rate 63 /min Dr. Ezra Arenas Work Phone: [facility] 06-28-2023 09:53-0500 Respiratory rate 14 /min Dr. Ezra Arenas Work Phone: [facility] 06-28-2023 09:53-0500 Systolic blood pressure 95 mm[Hg] Dr. Ezra Arenas Work Phone: [facility] 06-23-2023 22:07-0500 Body mass index (BMI) [Ratio] 18.8 kg/m2 Dr. Ezra Arenas Work Phone: [facility] 05-24-2023 03:48-0500 Body mass index (BMI) [Ratio] 18.8 kg/m2 Dr. Ezra Arenas Work Phone: [facility] 04-23-2023 22:54-0400 Body mass index (BMI) [Ratio] 18.8 kg/m2 Dr. Ezra Arenas Work Phone: [facility] 04-15-2023 13:43-0400 Body height 175.[address] Ezra Arenas Work Phone: [facility] 04-15-2023 13:43-0400 Body mass index (BMI) [Ratio] 21.9 kg/m2 Dr. Ezra Arenas Work Phone: [facility] 04-15-2023 13:43-0400 Body temperature 99.2 [degF] Dr. Ezra Arenas Work Phone: [facility] 04-15-2023 13:43-0400 Body weight 67.[address] Ezra Arenas Work Phone: [facility] 04-15-2023 13:43-0400 Diastolic blood pressure 78 mm[Hg] Dr. Ezra Arenas Work Phone: [facility] 04-15-2023 13:43-0400 Heart rate 81 /min Dr. Ezra Arenas Work Phone: [facility] 04-15-2023 13:43-0400 Respiratory rate 17 /min Dr. Ezra Arenas Work Phone: [facility] 04-15-2023 13:43-0400 SaO2% (BldA) [Mass fraction] 98 % Dr. Ezra Arenas Work Phone: [facility] 04-15-2023 13:43-0400 Systolic blood pressure 112 mm[Hg] Dr. Ezra Arenas Work Phone: [facility] 03-24-2023 04:48-0400 Body mass index (BMI) [Ratio] 18.8 kg/m2 Dr. Ezra Arenas Work Phone: [facility] 02-21-2023 23:48-0400 Body mass index (BMI) [Ratio] 18.8 kg/m2 [facility] 01-22-2023 01:57-0400 Body mass index (BMI) [Ratio] 18.8 kg/m2 [facility] 12-22-2022 01:56-0400 Body mass index (BMI) [Ratio] 18.8 kg/m2 Dr. Ezra Arenas Work Phone: [facility] 11-23-2022 14:24-0400 Body height 180.[address] Ezra Arenas Work Phone: [facility] 11-23-2022 14:24-0400 Body mass index (BMI) [Ratio] 20.6 kg/m2 Dr. Ezra Arenas Work Phone: [facility] 11-23-2022 14:24-0400 Body temperature 98.3 [degF] Dr. Ezra Arenas Work Phone: [facility] 11-23-2022 14:24-0400 Body weight 67.[address] Ezra Arenas Work Phone: [facility] 11-23-2022 14:24-0400 Diastolic blood pressure 62 mm[Hg] Dr. Ezra Arenas Work Phone: [facility] 11-23-2022 14:24-0400 Heart rate 80 /min Dr. Ezra Arenas Work Phone: [facility] 11-23-2022 14:24-0400 Respiratory rate 15 /min Dr. Ezra Arenas Work Phone: [facility] 11-23-2022 14:24-0400 SaO2% (BldA) [Mass fraction] 98 % Dr. Ezra Arenas Work Phone: [facility] 11-23-2022 14:24-0400 Systolic blood pressure 106 mm[Hg] Dr. Ezra Arenas Work Phone: [facility] 11-22-2022 08:22-0400 Body mass index (BMI) [Ratio] 18.8 kg/m2 Dr. Ezra Arenas Work Phone: [facility] 10-21-2022 01:35-0400 Body mass index (BMI) [Ratio] 18.8 kg/m2 Dr. Ezra Arenas Work Phone: [facility] 09-21-2022 23:06-0400 Body mass index (BMI) [Ratio] 18.8 kg/m2 Dr. Ezra Arenas Work Phone: [facility] 08-21-2022 23:01-0500 Body mass index (BMI) [Ratio] 18.8 kg/m2 [facility] 07-25-2022 08:38-0500 Body mass index (BMI) [Ratio] 18.8 kg/m2 [facility] 06-24-2022 05:43-0500 Body mass index (BMI) [Ratio] 18.8 kg/m2 Dr. Ezra Arenas Work Phone: [facility] 05-24-2022 01:39-0500 Body mass index (BMI) [Ratio] 18.8 kg/m2 Dr. Ezra Arenas Work Phone: [facility] 04-24-2022 10:43-0400 Body mass index (BMI) [Ratio] 18.8 kg/m2 Dr. Ezra Arenas Work Phone: [facility] 04-06-2022 13:03-0400 Body height 180.[address] Ezra Arenas Work Phone: [facility] 04-06-2022 13:03-0400 Body mass index (BMI) [Ratio] 20.3 kg/m2 Dr. Ezra Arenas Work Phone: [facility] 04-06-2022 13:03-0400 Body weight 66.[address] Ezra Arenas Work Phone: [facility] 04-06-2022 13:03-0400 Diastolic blood pressure 62 mm[Hg] Dr. Ezra Arenas Work Phone: [facility] 04-06-2022 13:03-0400 Heart rate 76 /min Dr. Ezra Arenas Work Phone: [facility] 04-06-2022 13:03-0400 Respiratory rate 16 /min Dr. Ezra Arenas Work Phone: [facility] 04-06-2022 13:03-0400 Systolic blood pressure 90 mm[Hg] Dr. Ezra Arenas Work Phone: [facility] 03-23-2022 23:41-0400 Body mass index (BMI) [Ratio] 18.8 kg/m2 Dr. Ezra Arenas Work Phone: [facility] 03-23-2022 13:33-0400 Body height 180.[address] Ezra Arenas Work Phone: [facility] Work Phone: 03-23-2022 13:33-0400 Body mass index (BMI) [Ratio] 20.4 kg/m2 Dr. Ezra Arenas Work Phone: [facility] Work Phone: 03-23-2022 13:33-0400 Body temperature 97.3 [degF] Dr. Ezra Arenas Work Phone: [facility] Work Phone: 03-23-2022 13:33-0400 Body weight 66.[address] Ezra Arenas Work Phone: [facility] Work Phone: 03-23-2022 13:33-0400 Diastolic blood pressure 60 mm[Hg] Dr. Ezar Arenas Work Phone: [facility] Work Phone: 03-23-2022 13:33-0400 Heart rate 57 /min Dr. Ezra Arenas Work Phone: [facility] Work Phone: 03-23-2022 13:33-0400 Respiratory rate 18 /min Dr. Ezra Arenas Work Phone: [facility] Work Phone: 03-23-2022 13:33-0400 SaO2% (BldA) [Mass fraction] 98 % Dr. Ezra Arenas Work Phone: [facility] Work Phone: 03-23-2022 13:33-0400 Systolic blood pressure 94 mm[Hg] Dr. Ezra Arenas Work Phone: [facility] Work Phone: 02-22-2022 00:35-0400 Body mass index (BMI) [Ratio] 18.8 kg/m2 Dr. Ezra Arenas Work Phone: [facility] Work Phone: 01-21-2022 03:18-0400 Body mass index (BMI) [Ratio] 18.8 kg/m2 Dr. Ezra Arenas Work Phone: [facility] Work Phone: 12-22-2021 00:11-0400 Body mass index (BMI) [Ratio] 18.8 kg/m2 Dr. Ezra Arenas Work Phone: [facility] Work Phone: 11-29-2021 09:51-0400 Body height 180.[address] Ezra Arenas Work Phone: [facility] Work Phone: 11-29-2021 09:51-0400 Body mass index (BMI) [Ratio] 20 kg/m2 Dr. Ezra Arenas Work Phone: [facility] Work Phone: 11-29-2021 09:51-0400 Body temperature 97.9 [degF] Dr. Ezra Arenas Work Phone: [facility] Work Phone: 11-29-2021 09:51-0400 Body weight 65.[address] Ezra Arenas Work Phone: [facility] Work Phone: 11-29-2021 09:51-0400 Diastolic blood pressure 62 mm[Hg] Dr. Ezra Arenas Work Phone: [facility] Work Phone: 11-29-2021 09:51-0400 Heart rate 77 /min Dr. Ezra Arenas Work Phone: [facility] Work Phone: 11-29-2021 09:51-0400 Respiratory rate 14 /min Dr. Ezra Arensa Work Phone: [facility] Work Phone: 11-29-2021 09:51-0400 SaO2% (BldA) [Mass fraction] 99 % Dr. Ezra Arenas Work Phone: [facility] Work Phone: 11-29-2021 09:51-0400 Systolic blood pressure 98 mm[Hg] Dr. Ezra Arenas Work Phone: [facility] Work Phone: 11-21-2021 21:38-0400 Body mass index (BMI) [Ratio] 18.8 kg/m2 Dr. Ezra Arenas Work Phone: [facility] Work Phone: 10-22-2021 04:31-0400 Body mass index (BMI) [Ratio] 18.8 kg/m2 [facility] Work Phone: 09-22-2021 02:51-0400 Body mass index (BMI) [Ratio] 18.8 kg/m2 [facility] Work Phone: 08-22-2021 10:36-0500 Body mass index (BMI) [Ratio] 18.8 kg/m2 Dr. Ezra Arenas Work Phone: [facility] Work Phone: 08-22-2021 09:36-0500 Body mass index (BMI) [Ratio] 18.8 kg/m2 [facility] Work Phone: 07-25-2021 01:33-0500 Body mass index (BMI) [Ratio] 18.8 kg/m2 [facility] Work Phone: 06-26-2021 01:46-0500 Body mass index (BMI) [Ratio] 18.8 kg/m2 [facility] Work Phone: 05-24-2021 01:33-0500 Body mass index (BMI) [Ratio] 18.8 kg/m2 [facility] Work Phone: Encounters Encounter Date Encounter Type Care Provider Facility Start: 01-29-2025 ambulatory Ezra Coronel ty:[facility] Start: 01-13-2025 End: 01-13-[address] Ezra Arenas MD Work Phone: -[facility] Start: 01-13-2025 End: 01-13-[address] Ezra Arenas MD -[facility] Work Phone: Start: 01-13-2025 End: 01-13-2025 ambulatory Ezra Arenas Facility:[facility] Start: 12-31-2024 End: 12-31-2024 Patient encounter procedure Miri HOOD -[facility] Work Phone: Start: 12-31-2024 End: 01-21-2025 Discharged Recurring Miri Galdamez PA -[facility] Start: 12-31-2024 Registered Recurring Miri HOOD -[facility] Start: 12-31-2024 End: 01-21-[address] Ezra Arenas MD Work Phone: -[facility] Start: 12-22-2024 Encounter for genera l adult medical examination without abnormal findings Miri HOOD [facility] Start: 12-02-2024 End: 12-21-2024 Discharged Recurring Miri Galdamez PA -[facility] Start: 12-02-2024 Registered Recurring Miri Galdamez PA -[facility] Start: 12-02-2024 End: 12-02-[address] Ezra Arenas MD -[facility] Work Phone: Start: 12-02-2024 End: 12-02-[address] Ezra Arenas MD [facility] Start: 12-02-2024 End: 12-21-[address] Ezra Arenas MD Work Phone: [facility] Work Phone: Start: 11-06-2024 End: 11-06-2024 Discharged Recurring Miri Galdamez PA -Laboratory Work Phone: Start: 11-06-2024 End: 11-06-[address] Ezra Arenas MD Work Phone: [facility] Work Phone: Start: 10-16-2024 End: 10-21-2024 Discharged Recurring Miri Galdamez PA -Laboratory Work Phone: Start: 10-16-2024 End: 10-21-2024 ambulatory Ezra Arenas Facility:[facility] Start: 09-16-2024 End: 09-16-[address] Ezra Arenas MD Work Phone: [facility] Work Phone: Start: 09-16-2024 End: 09-16-2024 Discharged Recurring Miri Galdamez PA -Laboratory Work Phone: Start: 08-14-2024 End: 08-21-2024 [facility] Start: 08-14-2024 End: 08-21-2024 Discharged Recurring Miri Galdamez PA -Laboratory Work Phone: Start: 07-31-2024 ambulatory [facility] Facili ty:[facility] Start: 07-31-2024 Non-patient / Non-visit Dr. Margaux BOWLING -[facility] Start: 07-31-2024 End: 07-31-[address] Franklin Shah MD -Cardiovascular Services Work Phone: Start: 07-31-2024 End: 07-31-2024 ambulatory [facility] Facility:[facility] Start: 07-03-2024 End: 07-03-[address] Franklin Shah MD -[facility] Work Phone: Start: 07-03-2024 End: 07-03-2024 Discharged Recurring Miri Galdamez PA -Laboratory Work Phone: Start: 07-03-2024 End: 07-03-2024 ambulatory Miri HOOD Facility:[facility] Start: 05-29-2024 End: 05-29-2024 Discharged Recurring Miri Galdamez PA -Laboratory Work Phone: Start: 05-29-2024 End: 05-29-2024 ambulatory [place] Facility:[facility] Start: 05-01-2024 End: 05-23-2024 [facility]ulatory [facility] Start: 04-10-2024 End: 04-10-2024 ambulatory [facility] Facility:[facility] Start: 03-20-2024 End: 03-20-2024 [facility]ulatory [facility] Start: 02-06-2024 End: 02-06-2024 ambulatory [place] Facility:[facility] Start: 09-20-2023 End: 09-22-[address] Ezra Arenas Work Phone: [facility] Work Phone: Start: 09-20-2023 End: 09-22-[address] Ezra Arenas Work Phone: [facility]-Laboratory Work Phone: Start: 07-26-2023 End: 08-22-[address] Ezra Arenas Work Phone: [facility] Work Phone: Start: 07-26-2023 End: 08-22-[address] Ezra Arenas Work Phone: [facility]-Laboratory Work Phone: Start: 07-15-2023 Non-patient / Non-visit Dr. Jorge Arenas Work Phone: [facility] Start: 07-15-2023 End: 07-15-[address] Ezra Arenas Work Phone: [facility] Work Phone: Start: 07-15-2023 End: 07-15-[address] Ezra Arenas Work Phone: [facility]-Cardiovascula r Services Work Phone: Start: 06-28-2023 Non-patient / Non-visit Dr. Jorge Arenas Work Phone: [facility] Work Phone: Start: 06-28-2023 End: 06-28-[address] Ezra Arenas Work Phone: [facility] Work Phone: Start: 06-28-2023 End: 06-28-[address] Ezra Arenas Work Phone: [facility] Work Phone: Start: 06-28-2023 End: 06-28-[address] Ezra Arenas Work Phone: [facility]-Laboratory Work Phone: Start: 06-28-[address] Bonifacio Arenas Work Phone: [facility]-Labor[facility] Work Phone: Start: 05-31-2023 End: 06-23-[address] Ezra Arenas Work Phone: [facility] Work Phone: Start: 05-31-2023 End: 06-23-[address] [facility] Start: 05-03-2023 End: 05-23-[address] Ezra Arenas Work Phone: [facility] Work Phone: Start: 05-03-2023 End: 05-23-[address] [facility] Start: 04-15-2023 End: 04-15-[address] Ezra Arenas Work Phone: [facility] Work Phone: Start: 04-15-2023 End: 04-15-[address] Ezra Arenas Work Phone: [facility] Work Phone: Start: 04-05-2023 End: 04-05-[address] [facility] Start: 04-05-[address] Bonifacio Arenas Work Phone: [facility]-Laboratory Work Phone: Start: 03-08-2023 End: 03-08-2023 ambulatory [facility] Work Phone: Start: 03-08-2023 End: 03-08-2023 Discharged Recurring [facility] Work Phone: Start: 02-08-2023 End: 02-08-2023 Discharged Recurring [facility] Work Phone: Start: 01-11-2023 End: 01-21-[address] Ezra Arenas Work Phone: [facility] Work Phone: Start: 01-11-2023 End: 01-21-[address] Ezra Arenas Work Phone: [facility]-Laboratory Work Phone: Start: 12-21-2022 End: 12-21-[address] Ezra Arenas Work Phone: [facility] Work Phone: Start: 12-21-2022 End: 12-21-[address] Ezra Arenas Work Phone: [facility]-Laboratory Work Phone: Start: 11-23-2022 End: 11-23-[address] Ezra Arenas Work Phone: [facility] Work Phone: Start: 11-23-2022 End: 11-23-2022 Encounter for general adult medical examination without abnormal findings Dr. Ezra Arenas Work Phone: [facility] Start: 11-23-2022 End: 11-23-[address] Ezra Arenas Work Phone: [facility] Start: 11-09-2022 End: 11-21-[address] Ezra Arenas Work Phone: [facility] Work Phone: Start: 11-09-2022 End: 11-21-[address] Ezra Arenas Work Phone: [facility]-Laboratory Start: 10-25-2022 Non-patient / Non-visit Dr. Jorge Arenas Work Phone: [facility] Start: 10-22-2022 End: 10-22-[address] Ezra Arenas Work Phone: [facility] Work Phone: Start: 10-22-2022 End: 10-22-[address] Ezra Arenas Work Phone: [facility]-Pulmonary Services/Neurology Start: 10-19-2022 End: 10-19-[address] Ezra Arenas Work Phone: [facility] Start: 10-19-2022 End: 10-21-[address] Ezra Arenas Work Phone: [facility] Work Phone: Start: 10-19-2022 End: 10-21-[address] Ezra Arenas Work Phone: [facility] Start: 08-31-2022 End: 09-21-2022 ambulatory [facility] Work Phone: Start: 08-31-2022 End: 09-21-2022 Discharged Recurring [facility] Start: 08-03-2022 End: 08-03-2022 ambulatory [facility] Work Phone: Start: 08-03-2022 End: 08-03-2022 Discharged Recurring [facility] Start: 07-06-2022 End: 07-06-[address] Ezra Arenas Work Phone: [facility] Work Phone: Start: 07-06-2022 End: 07-06-[address] Ezra Arenas Work Phone: [facility] Start: 06-08-2022 End: 06-08-[address] Ezra Arenas Work Phone: [facility] Start: 05-11-2022 End: 05-23-[address] Ezra Arenas Work Phone: [facility] Work Phone: Start: 05-11-2022 End: 05-23-[address] Ezra Arenas Work Phone: [facility]-Laboratory Start: 04-20-2022 Non-patient / Non-visit Dr. Jorge Arenas Work Phone: [facility] Start: 04-20-2022 End: 04-20-[address] Ezra Arenas Work Phone: [facility]-Cardiovascula r Services Start: 04-20-2022 End: 04-20-[address] Ezra Arenas Work Phone: [facility] Work Phone: Start: 04-20-2022 End: 04-20-[address] Ezra Arenas Work Phone: [facility] Start: 04-06-2022 End: 04-06-[address] Ezra Arenas Work Phone: [facility] Start: 03-23-2022 End: 03-23-[address] Ezra Arenas Work Phone: [facility] Start: 03-16-2022 End: 03-16-[address] Ezra Arenas Work Phone: [facility] Work Phone: Start: 03-16-2022 End: 03-16-[address] Ezra Arenas Work Phone: [facility] Start: 01-26-2022 End: 01-26-[address] Ezra Arenas Work Phone: [facility] Work Phone: Start: 01-26-2022 End: 01-26-[address] Ezra Arenas Work Phone: [facility] Start: 01-05-2022 End: 01-21-[address] Ezra Arenas Work Phone: [facility] Start: 11-29-2021 End: 12-21-[address] Ezra Arenas Work Phone: [facility], [place] Start: 11-29-2021 End: 11-29-2021 Encounter for general adult medical examination without abnormal findings Dr. Ezra Arenas Work Phone: [facility] Start: 11-29-2021 End: 11-29-[address] Ezra Arenas Work Phone: [facility] Start: 10-25-2021 End: 10-25-2021 Discharged Recurring [facility] Start: 09-25-2021 End: 09-25-2021 Discharged Recurring [facility] Start: 08-28-2021 End: 09-21-2021 Discharged Recurring [facility] Start: 07-31-2021 End: 07-31-2021 Discharged Recurring [facility] Start: 06-26-2021 End: 07-24-2021 Discharged Recurring [facility] Start: 05-29-2021 End: 06-24-2021 Discharged Recurring [facility] Start: 11-28-2020 Patient encounter status [facility] Start: 11-14-2017 End: 11-14-2017 Emergency department patient visit JUAN MANUEL DUFFY [facility] Procedures Date Procedure Procedure Detail Performing Clinician Start: 01-13-2025 Screening mammography Neftali Arenas MD Work Phone: Start: 07-03-2024 Evaluation of diagno stic study results Dr. Ezra Arenas MD Work Phone: Start: 04-15-2023 Plain chest X-ray Dr. Sandra Arenas Work Phone: Plan of Treatment Date Care Activity Detail Author Start: 01-13-2025 MG Breast - bilateral Screening [facility] Start: 12-02-2024 Patient referral [facility] Work Phone: Start: 12-02-2024 [facility] Start: 12-02-2024 Basic metabolic 2008 panel with ionized calcium - Serum or Plasma [facility] Start: 12-02-2024 CBC W Auto Different ial panel - Blood [facility] Anion gap in Serum or Plasma [facility] BUN/Creatinine ratio [facility] Calcium [Mass/volume ] in Serum or Plasma [facility] Carbon dioxide, tota l [Moles/volume] in Central venous blood [facility] Creatinine [Mass/vol ume] in Serum or Plasma [facility] Erythrocyte mean cor puscular volume determination [facility] Glucose [Mass/volume ] in Serum or Plasma [facility] Hematocrit [Volume F raction] of Blood [facility] Hemoglobin [Mass/vol ume] in Blood [facility] INR in Blood by Coag ulation assay [facility] Leukocytes [#/volume] in Blood [facility] Mean corpuscular hem oglobin concentration determination [facility] Mean corpuscular hem oglobin determination [facility] Measurement of renal function [facility] MG Breast - bilateral Screening [facility] Neutrophil count [facility] Neutrophil percent d ifferential count [facility] Patient referral [facility] Work Phone: Platelets [#/volume] in Blood [facility] Potassium measurement [facility] Prothrombin time [facility] Prothrombin time [facility] Red blood cell count [facility] Red cell distributio n width determination [facility] Serum chloride measurement [facility] Sodium measurement [facility] Urea nitrogen [Mass/ volume] in Serum or Plasma [facility] Immunizations Immunization Date Immunization Notes Care Provider Fa babatundety 10-13-2020 Covid (Pfizer) [facility] 09-12-2020 Covid (Pfizer) [facility] 03-11-2020 influenza, injectable,quadrivalent, preservative free, pediatric [facility] 03-11-2020 Flucelvax Quad 2020 (PF) (flu vac qs 2019(4 yr up)CD(PF)) 60 mcg (15 mcg x [facility] Work Phone: 03-11-2020 Flucelvax Quad 2020 (PF) 60 mcg (15 mcg x 4)/0.5 mL IM syringe (flu vac qs [facility] Work Phone: Payers Date Payer Category Payer Self-pay [id number] 2023 Unknown [id number] Unknown [id number] Unknown [id number] 2.16.8 [id number] Unknown [id number] 2.16.8 [id number] Unknown [id number] 2.16.8 [id number] Unknown [id number] 2.16.8 [id number] Unknown [id number] 2.16.8 [id number] Unknown [id number] 2.16.8 [id number] Unknown [id number] 2.16.8 [id number] Unknown [id number] 2.16.8 [id number] Unknown [id number] 2.16.8 [id number] Unknown [id number] 2.16.8 [id number] Unknown [id number] 2.16.8 [id number] Unknown [id number] 2.16.8 [id number] Unknown [id number] 2.16.8 [id number] Unknown [id number] 2.16.8 [id number] Unknown [id number] 2.16.8 [id number] Unknown [id number] 2.16.8 [id number] Unknown [id number] 2.16.8 [id number] Unknown [id number] 2.16.8 [id number] Unknown [id number] 2.16.8 [id number] Social History Date Type Detail Facility Start: 03-27-2021 End: 06-28-2023 Tobacco smoking status NHIS Unknown if ever smoked [facility] Start: 1985 Sex Assigned At Female [facility] Start: 06-28-2023 Tobacco smoking stat us MDIS Never smoked tobacco (finding) [facility] Start: 09-21-2024 Sex Female (finding) [facility] Clinical Notes 07-25-2009 to 12-02-2024 Note Date & Type Note Facility 12-02-2024 Evaluation note Diagnosis Onset Date Resolution Preventative health care acute December 02, 2024 10:54am [facility] Work Phone: 1(621) 730-124006-11-2025 Evaluation note* Diagnosis Onset Date Resolution Status Admit Date Preventative health care acute December 02, 2024 10:54am Hyperlipidemia acute December 31, 2024 10:36am Mitral valve disease acute December 31, 2024 10:36am History of atrial fibrillation chron ic December 31, 2024 10:36am History of mitral valve repair July, c hronic December 31, 2024 10:36am custodial current use of anticoagulant chronic December 31, 2024 10:36am History of radiofrequency ablation procedure for cardiac arrhythmia July, resolved December 31, 2024 10:36am [facility] Work Phone: 1(251) 349-517406-11-2025 Evaluation note* Diagnosis Onset Date Resolution Status Admit Date Preventative health care acute December 02, 2024 10:54am Hyperlipidemia acute December 31, 2024 10:36am History of atrial fibrillation chron ic December 31, 2024 10:36am History of mitral valve repair July, c hronic December 31, 2024 10:36am custodial current use of anticoagulant chronic December 31, 2024 10:36am History of radiofrequency ablation procedure for cardiac arrhythmia July, resolved December 31, 2024 10:36am [facility] Work Phone: 1(829) 891-354801-10-2025 Evaluation note* Diagnosis Onset Date Resolution Status Admit Date Hyperlipidemia acute July 032024 10:04am Mitral valve disease acute [place] 2024 10:04am History of atrial fibrillation chronic July 03 10:04am History of mitral valve repair July, chronic July 03 10:04am custodial current use of anticoagulant chronic July 03 10:04am History of radiofrequency ablation procedure for cardiac arrhythmia July, resolved July 03, 2024 10:04am [facility] Work Phone: 1(789) 575-710802-01-2010 Evaluation note* Diagnosis Onset Date Resolution Status Hand, foot and mouth disease noneactive History of mitral valve repair July, chronic Pectus excavatum chronic History of radiofrequency ab lation procedure for cardiac arrhythmia July, resolved [facility] Work Phone: 1(538) 419-118102-01-2010 Evaluation note* Diagnosis Onset Date Resolution Status History of mitral valve repair July, chronic Pectus excavatum chronic History of radiofrequency ab lation procedure for cardiac arrhythmia July, resolved [facility] Work Phone: 1(628) 608-825802-01-2010 Evaluation note* Diagnosis Onset Date Resolution Status Acute bronchitis, unspecified acute URI (upper respiratory infection) acute History of atrial fibrillation chronic History of mitral valve repair July, chronic History of radiofrequency ab lation procedure for cardiac arrhythmia July, resolved [facility] Work Phone: 1(652) 788-220702-01-2010 Evaluation note* Diagnosis Onset Date Resolution Status History of atrial fibrillation chronic History of mitral valve repair July, chronic History of radiofrequency ab lation procedure for cardiac arrhythmia July, resolved [facility] Work Phone: Evaluation noteNo assessment information available [facility] Work Phone: Evaluation note* Diagnosis Onset Date Resolution Status Preventative health care acu te [facility] Work Phone: Evaluation note* Diagnosis Onset Date Resolution Status Preventative health care acu te Hand, foot and mouth disease noneactive [facility] Work Phone: Evaluation note* Diagnosis Onset Date Resolution Status Acute bronchitis, unspecified acute URI (upper respiratory infection) acute [facility] Work Phone: Reason for referral (narrative)No reason for referral [facility]: Summary Purpose Family History No Family History Records Found Relationship Condition Age at Onset Recorded Date/T beba father Hypertension Unknown Cardiac disease Unknown Hyperlipidemia Unknown mother Hypertension Unknown Alcoholism Unknown Depression Unknown grandmother Malignant neoplasm Unknown Relationship Condition Age at Onset Recorded Date/T beba Not Specified History of atrial fibrillation Unknown father Hypertension Unknown Cardiac disease Unknown Hyperlipidemia Unknown mother Hypertension Unknown Alcoholism Unknown Depression Unknown grandmother Malignant neoplasm Unknown Advance Directives No Advanced Directives Records Found Advance Directive Response Recorded Date/ Time Living Will Yes April 14 11:27am Power of Cash Person Yes April 14, 2020 11:27am Advance Directive Response Recorded Date/ Time Living Will Yes April 14 10:27am Power of Cash Person Yes April 14, 2020 10:27am Advance Directive Response Recorded Date/ Time Living Will Yes June 24 5:55am Do you have a Healthcare Power of Cash Person? Yes June 24, 2024 5:55am Living Will Yes July 24 10:36pm Do you have a Healthcare Power of Cash Person? Yes July 24, 2024 10:36pm Living Will Yes May 24 2:41am Do you have a Healthcare Power of Cash Person? Yes May 24, 2024 2:41am Living Will Yes August 22, 2024 8:43am Do you have a Healthcare Power of Cash Person? Yes August 22, 2024 8:43am Advance Directive Response Recorded Date/ Time Living Will Yes July 24 10:36pm Do you have a Healthcare Power of Cash Person? Yes July 24, 2024 10:36pm Living Will Yes September 21, 2024 10:55pm Do you have a Healthcare Power of Cash Person? Yes September 21, 2024 10:55pm Living Will Yes August 22, 2024 8:43am Do you have a Healthcare Power of Cash Person? Yes August 22, 2024 8:43am Living Will Yes October 21, 2024 10:17pm Do you have a Healthcare Power of Cash Person? Yes October 21, 2024 10:17pm Advance Directive Response Recorded Date/ Time Living Will Yes April 14 11:27am Do you have a Healthcare Power of Cash Person? Yes April 14, 2020 11:27am Living Will Yes July 24 10:36pm Do you have a Healthcare Power of Cash Person? Yes July 24, 2024 10:36pm Living Will Yes September 21, 2024 10:55pm Do you have a Healthcare Power of Cash Person? Yes September 21, 2024 10:55pm Living Will Yes August 22, 2024 8:43am Do you have a Healthcare Power of Cash Person? Yes August 22, 2024 8:43am Living Will Yes October 21, 2024 10:17pm Do you have a Healthcare Power of Cash Person? Yes October 21, 2024 10:17pm Living Will Yes November 22, 2024 4 :46am Do you have a Healthcare Power of Cash Person? Yes November 22, 2024 4:46am Advance Directive Response Recorded Date/ Time Living Will Yes April 14 11:27am Do you have a Healthcare Power of Cash Person? Yes April 14, 2020 11:27am Living Will Yes September 21, 2024 10:55pm Do you have a Healthcare Power of Cash Person? Yes September 21, 2024 10:55pm Living Will Yes August 22, 2024 8:43am Do you have a Healthcare Power of Cash Person? Yes August 22, 2024 8:43am Living Will Yes October 21, 2024 10:17pm Do you have a Healthcare Power of Cash Person? Yes October 21, 2024 10:17pm Living Will Yes November 22, 2024 4 :46am Do you have a Healthcare Power of Cash Person? Yes November 22, 2024 4:46am Advance Directive Response Recorded Date/ Time Living Will Yes April 14 11:27am Do you have a Healthcare Power of Cash Person? Yes April 14, 2020 11:27am Living Will Yes September 21, 2024 10:55pm Do you have a Healthcare Power of Cash Person? Yes September 21, 2024 10:55pm Living Will Yes October 21, 2024 10:17pm Do you have a Healthcare Power of Cash Person? Yes October 21, 2024 10:17pm Living Will Yes November 22, 2024 4 :46am Do you have a Healthcare Power of Cash Person? Yes November 22, 2024 4:46am Chief Complaint and Reason for Visit Chief Complaint S/O EORDER - INR S/O EORDER - INR S/O EORDER - INR S/O EORDER - INR Chief Complaint S/O EORDER - INR S/O EORDER - INR S/O EORDER - INR 1 Y FU S/O EORDER - INR Reason for Visit Preventative health care Chief Complaint S/O EORDER - INR S/O EORDER - INR 1 Y FU S/O EORDER - INR S/O EORDER - INR Reason for Visit Preventative health care Chief Complaint S/O EORDER - INR 1 Y FU S/O EORDER - INR S/O EORDER - INR S/O EORDER - INR Reason for Visit Preventative health care Chief Complaint 1 Y FU S/O EORDER - INR S/O EORDER - INR S/O EORDER - INR S/O EORDER - INR LOSING VOICE, SORE THROAT, COVID - Reason for Visit Preventative health care Hand, foot and mouth disease Chief Complaint S/O EORDER - INR S/O EORDER - INR S/O EORDER - INR LOSING VOICE, SORE THROAT, COVID - 1 Y FU S/O EORDER - INR MVP REPAIR Reason for Visit Hand, foot and mouth disease History of mitral valve repair Pectus excavatum History of radiofrequency ablation procedure for cardiac arrhythmia Chief Complaint S/O EORDER - INR S/O EORDER - INR LOSING VOICE, SORE THROAT, COVID - 1 Y FU S/O EORDER - INR MVP REPAIR S/O EORDER - INR Reason for Visit Hand, foot and mouth disease History of mitral valve repair Pectus excavatum History of radiofrequency ablation procedure for cardiac arrhythmia Chief Complaint 1 Y FU S/O EORDER - INR MVP REPAIR S/O EORDER - INR S/O EORDER - INR S/O EORDER - INR Reason for Visit History of mitral va lve repair Pectus excavatum History of radiofrequency ablation procedure for cardiac arrhythmia Chief Complaint S/O EORDER - INR S/O EORDER - INR S/O EORDER - INR S/O EORDER - INR EKG Chief Complaint S/O EORDER - INR S/O EORDER - INR S/O EORDER - INR S/O EORDER - INR EKG HPT Amb Documentation Chief Complaint S/O EORDER - INR S/O EORDER - INR S/O EORDER - INR EKG HPT Amb Documentation S/O EORDER - INR Chief Complaint S/O EORDER - INR S/O EORDER - INR S/O EORDER - INR EKG HPT Amb Documentation S/O EORDER - INR 1 Y FU Reason for Visit Preventative health care Chief Complaint S/O EORDER - INR S/O EORDER - INR EKG HPT Amb Documentation S/O EORDER - INR 1 Y FU S/O EORDER - INR Reason for Visit Preventative health care Chief Complaint S/O EORDER - INR EKG HPT Amb Documentation S/O EORDER - INR 1 Y FU S/O EORDER - INR S/O EORDER - INR Reason for Visit Preventative health care Chief Complaint S/O EORDER - INR S/O EORDER - INR S/O EORDER - INR S/O EORDER - INR S/O EORDER - INR Cough eorder Reason for Visit Acute bronchitis, un specified URI (upper respiratory infection) Chief Complaint S/O EORDER - INR S/O EORDER - INR S/O EORDER - INR Cough eorder S/O EORDER - INR Reason for Visit Acute bronchitis, un specified URI (upper respiratory infection) Chief Complaint S/O EORDER - INR S/O EORDER - INR Cough eorder S/O EORDER - INR S/O EORDER - INR Reason for Visit Acute bronchitis, un specified URI (upper respiratory infection) Chief Complaint S/O EORDER - INR Cough eorder S/O EORDER - INR S/O EORDER - INR S/O EORDER - INR 1 y fu PREV PFM PT Amb Documentation MVP Reason for Visit Acute bronchitis, un specified URI (upper respiratory infection) History of atrial fibrillation History of mitral valve repair History of radiofrequency ablation procedure for cardiac arrhythmia Chief Complaint S/O EORDER - INR S/O EORDER - INR S/O EORDER - INR 1 y fu PREV PFM PT Amb Documentation MVP [id number] Reason for Visit History of atrial fi brillation History of mitral valve repair History of radiofrequency ablation procedure for cardiac arrhythmia Chief Complaint S/O EORDER - INR S/O EORDER - INR 1 y fu PREV PFM PT Amb Documentation MVP [id number] Reason for Visit History of atrial fi brillation History of mitral valve repair History of radiofrequency ablation procedure for cardiac arrhythmia Chief Complaint Admit Date s/o INR May 29, 2024 1 0:59am s/o INR July 03, 2024 9 :47am 1 Y FU July 03, 2024 1 0:04am AFIB July 31, 2024 9 :40am s/o INR August 14, 2024 12:24pm s/o INR September 16, 2024 12: 39pm Reason for Visit Admit Date Hyperlipidemia July 03, 2024 1 0:04am Mitral valve disease July 03, 2024 10:04am History of atrial fibrillation June 242024 10:04am History of mitral valve repair June 242024 10:04am 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 10:04am History of radiofrequency ab lation procedure for cardiac arrhythmia July 03, 2024 10:04am Chief Complaint Admit Date AFIB July 31, 2024 9 :40am s/o INR August 14, 2024 12:24pm s/o INR September 16, 2024 12: 39pm s/o INR October 16, 2024 12: 35pm s/o INR November 06, 2024 12:43 pm Chief Complaint Admit Date s/o INR August 14, 2024 12:24pm s/o INR September 16, 2024 12: 39pm s/o INR October 16, 2024 12: 35pm s/o INR November 06, 2024 12:43 pm YEARLY December 02, 2024 10:5 4am s/o INR December 02, 2024 11:4 0am Chief Complaint Admit Date s/o INR September 16, 2024 12: 39pm s/o INR October 16, 2024 12: 35pm s/o INR November 06, 2024 12:43 pm YEARLY December 02, 2024 10:5 4am s/o INR December 02, 2024 11:4 0am Reason for Visit Admit Date Preventative health care December 02, 2024 10:54am Chief Complaint Admit Date s/o INR September 16, 2024 12: 39pm s/o INR October 16, 2024 12: 35pm s/o INR November 06, 2024 12:43 pm YEARLY December 02, 2024 10:5 4am s/o INR December 02, 2024 11:4 0am s/o INR December 31, 2024 10:2 0am 6 M FU December 31, 2024 10:3 6am Reason for Visit Admit Date Preventative health care December 02, 2024 10:54am Hyperlipidemia December 31, 2024 10:3 6am Mitral valve disease December 31, 2024 10: 36am History of atrial fibrillation December 10:36am History of mitral valve repair December 10:36am custodial current use of anticoagulant J isaac 2024 10:36am History of radiofrequency ab lation procedure for cardiac arrhythmia December 31, 2024 10:36am Chief Complaint Admit Date s/o INR October 16, 2024 12: 35pm s/o INR November 06, 2024 12:43 pm YEARLY December 02, 2024 10:5 4am s/o INR December 02, 2024 11:4 0am s/o INR December 31, 2024 10:2 0am 6 M FU December 31, 2024 10:3 6am Breast Cancer Screening January 13, 2025 10:19am Reason for Visit Admit Date Preventative health care December 02, 2024 10:54am Hyperlipidemia December 31, 2024 10:3 6am History of atrial fibrillation December 10:36am History of mitral valve repair December 10:36am 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 2024 10:36am History of radiofrequency ab lation procedure for cardiac arrhythmia December 31, 2024 10:36am Additional Source Comments INFORMATION SOURCE (unrecogn ized section and content) DATE CREATED AUTHOR 12/11/2017 [facility] DATE CREATED AUTHOR AUTHOR'S ORGANIZ ATION 12/11/2017 [facility] DATE CREATED AUTHOR AUTHOR'S ORGANIZ ATION 01/31/2025 [facility] Goals (unrecognized section and content) Goals may be documented in a n alternate sectionGoals may be documented in an alternate sectionGoals may be documented in an alternate sectionGoals may be documented in an alternate sectionGoals may be documented in an alternate sectionGoals may be documented in an alternate sectionGoals may be documented in an alternate sectionGoals may be documented in an alternate sectionGoals may be documented in an alternate sectionGoals may be documented in an alternate sectionGoals may be documented in an alternate sectionGoals may be documented in an alternate sectionGoals may be documented in an alternate sectionGoals may be documented in an alternate sectionGoals may be documented in an alternate sectionGoals may be documented in an alternate sectionGoals may be documented in an alternate sectionGoals may be documented in an alternate sectionGoals may be documented in an alternate sectionGoals may be documented in an alternate sectionGoals may be documented in an alternate sectionGoals may be documented in an alternate sectionGoals may be documented in an alternate sectionGoals may be documented in an alternate sectionGoals may be documented in an alternate sectionGoals may be documented in an alternate sectionGoals may be documented in an alternate sectionGoals may be documented in an alternate sectionGoals may be documented in an alternate sectionGoals may be documented in an alternate sectionGoals may be documented in an alternate sectionGoals may be documented in an alternate sectionGoals may be documented in an alternate sectionGoals may be documented in an alternate section Care Teams (unrecognized sec tion and content) Team Status: Active Member Role Status Dates Dr. Ezra Arenas MD Primary Care Provider Active Team Status: Inactive Member Role Status Dates Dr. Ezra Arenas MD Primary Care Provider, Refer ring Provider Active Dr. Gene Terrell MD Attending Provider Active Team Status: Active Member Role Status Dates Dr. Ezra Arenas MD Primary Care Provider Active Dr. Gene Terrell MD Attending Provider Active Team Status: Inactive Member Role Status Dates Dr. Ezra Arenas MD Primary Care Provider Active Miri Galdamez PA, PA Attending Provider, Referr ing Provider Active Team Status: Inactive Member Role Status Dates Dr. Ezra Arenas MD Primary Care Provider Active Dr. Gene Terrell MD Attending Provider, Referring Provider Active Team Status: Inactive Member Role Status Dates Dr. Ezra Arenas MD Primary Care Provider, Refer ring Provider Active Dr. Raymundo Dawn MD Attending Provider Active Team Status: Inactive Member Role Status Dates Dr. Ezra Arenas MD Primary Care Provider Active Miri Galdamez PA, PA Attending Provider, Referr ing Provider Active Caty Bautista SENIOR CLINICIAN, SENIOR CLINICIAN-C Other Provider Active Team Status: Active Member Role Status Dates Dr. Ezra Arenas MD Primary Care Provider Active Ijeoma Fraser Attending Provider Active Team Status: Inactive Member Role Status Dates Dr. Ezra Arenas MD Primary Care Provider Active Dr. Raymundo Dwan MD Attending Provider, Referring Pro vider Active Team Status: Inactive Member Role Status Dates Dr. Ezra Arenas MD Primary Care Jackson sr, Attending Provider, Referring Provider Active Team Status: Inactive Member Role Status Dates Dr. Ezra Arenas MD Primary Care Provider, Atten ding Provider Active Team Status: Inactive Member Role Status Dates Dr. Ezra Arenas MD Primary Care Provider, Refer ring Provider Active Juan Manuel Caputo PA, PA Attending Provider Active Team Status: Active Member Role Status Dates Dr. Ezra Arenas MD Primary Care Provider Active Miri Galdamez PA, PA Attending Provider, Referr ing Provider Active Caty Bautista SENIOR CLINICIAN, SENIOR CLINICIAN-C Other Provider Active Team Status: Inactive Member Role Status Dates Dr. Ezra Arenas MD Primary Care Provider Active Juan Manuel Caputo PA, PA Attending Provider, Referring Pr ovider Active Team Status: Active Member Role Status Dates Dr. Ezra Arenas MD Primary Care Provider Active Radha Cheney RN Attending Provider Active Team Status: Active Member Role Status Dates Dr. Ezra Arenas MD Primary Care Provider Active Dr. Raymundo Dawn MD Attending Provider Active Team Status: Inactive Member Role Status Dates Dr. Ezra Arenas MD Primary Care Provider Active Start: May 29, 2024 End: May 29, 2024 Dr. Ezra Arenas MD Other Provider Active Start: May 29, 2024 End: May 29, 2024 Miri HOOD PA Attending Provider Active Start: May 29, 2024 End: May 29, 2024 Miri Galdamez PA, PA Referring Provider Active Start: May 29, 2024 End: May 29, 2024 Caty Bautista SENIOR CLINICIAN, SENIOR CLINICIAN-C Other Provider Active Sta rt: May 29, 2024 End: May 29, 2024 Team Status: Inactive Member Role Status Dates Dr. Ezra Arenas MD Primary Care Provider Active Start: July 03, 2024 End: July 03, 2024 Dr. Ezra Arenas MD Other Provider Active Start: July 03, 2024 End: July 03, 2024 Miri Galdamez PA, PA Attending Provider Active Start: July 03, 2024 End: July 03, 2024 Miri Galdamez PA, PA Referring Provider Active Start: July 03, 2024 End: July 03, 2024 Caty Bautista SENIOR CLINICIAN, SENIOR CLINICIAN-C Other Provider Active Sta rt: July 03, 2024 End: July 03, 2024 Dr. Franklin Shah MD Other Provider Active St art: July 03, 2024 End: July 03, 2024 Team Status: Inactive Member Role Status Dates Dr. Ezra Arenas MD Primary Care Provider Active Start: July 03, 2024 End: July 03, 2024 Dr. Ezra Arenas MD Referring Provider Active Start: July 03, 2024 End: July 03, 2024 Dr. Franklin Shah MD Attending Provider Active Start: July 03, 2024 End: July 03, 2024 Team Status: Inactive Member Role Status Dates Dr. Ezra Arenas MD Primary Care Provider Active Start: July 31, 2024 End: July 31, 2024 Dr. Franklin Shah MD Attending Provider Active Start: July 31, 2024 End: July 31, 2024 Dr. Franklin Shah MD Referring Provider Active Start: July 31, 2024 End: July 31, 2024 Team Status: Active Member Role Status Dates Dr. Ezra Arenas MD Primary Care Provider Active Start: July 31, 2024 Dr. Raymundo Dawn MD Attending Provider Active S tart: July 31, 2024 Team Status: Inactive Member Role Status Dates Dr. Ezra Arenas MD Primary Care Provider Active Start: August 14, 2024 End: August 21, 2024 Dr. Ezra Arenas MD Other Provider Active Start: August 14, 2024 End: August 21, 2024 Miri Galdamez PA, PA Attending Provider Active Start: August 14, 2024 End: August 21, 2024 Miri Galdamez PA, PA Referring Provider Active Start: August 14, 2024 End: August 21, 2024 Caty Bautista SENIOR CLINICIAN, SENIOR CLINICIAN-C Other Provider Active Sta rt: August 14, 2024 End: August 21, 2024 Dr. Franklin Shah MD Other Provider Active St art: August 14, 2024 End: August 21, 2024 Team Status: Inactive Member Role Status Dates Dr. Ezra Arenas MD Primary Care Provider Active Start: September 16, 2024 End: September 16, 2024 Dr. Ezra Arenas MD Other Provider Active Start: September 16, 2024 End: September 16, 2024 Miri Galdamez PA, PA Attending Provider Active Start: September 16, 2024 End: September 16, 2024 Miri Galdamez PA, PA Referring Provider Active Start: September 16, 2024 End: September 16, 2024 Caty Bautista SENIOR CLINICIAN, SENIOR CLINICIAN-C Other Provider Active Sta rt: September 16, 2024 End: September 16, 2024 Dr. Franklin Shah MD Other Provider Active St art: September 16, 2024 End: September 16, 2024 Team Status: Inactive Member Role Status Dates Dr. Ezra Arenas MD Primary Care Provider Active Start: October 16, 2024 End: October 21, 2024 Dr. Ezra Arenas MD Other Provider Active Start: October 16, 2024 End: October 21, 2024 Miri Galdamez PA PA Attending Provider Active Start: October 16, 2024 End: October 21, 2024 Miri Galdamez PA, PA Referring Provider Active Start: October 16, 2024 End: October 21, 2024 Caty Bautista SENIOR CLINICIAN, SENIOR CLINICIAN-C Other Provider Active Sta rt: October 16, 2024 End: October 21, 2024 Dr. Franklin Shah MD Other Provider Active St art: October 16, 2024 End: October 21, 2024 Team Status: Inactive Member Role Status Dates Dr. Ezra Arenas MD Primary Care Provider Active Start: November 06, 2024 End: November 06, 2024 Dr. Ezra Arenas MD Other Provider Active Start: November 06, 2024 End: November 06, 2024 Miri HOOD PA Attending Provider Active Start: November 06, 2024 End: November 06, 2024 Miri HOOD PA Referring Provider Active Start: November 06, 2024 End: November 06, 2024 Caty Bautista SENIOR CLINICIAN, SENIOR CLINICIAN-C Other Provider Active Sta rt: November 06, 2024 End: November 06, 2024 Dr. Franklin Shah MD Other Provider Active St art: November 06, 2024 End: November 06, 2024 Team Status: Inactive Member Role Status Dates Dr. Ezra Arenas MD Primary Care Provider Active Start: December 02, 2024 End: December 02, 2024 Dr. Ezra Arenas MD Attending Provider Active Start: December 02, 2024 End: December 02, 2024 Dr. Ezra Arenas MD Referring Provider Active Start: December 02, 2024 End: December 02, 2024 Team Status: Active Member Role Status Dates Dr. Ezra Arenas MD Primary Care Provider Active Start: December 02, 2024 Miri HOOD, PA Attending Provider Active Start: December 02, 2024 Miri Galdamez PA, PA Referring Provider Active Start: December 02, 2024 Team Status: Active Member Role/Relationship Status Dates Dr. Ezra Arenas MD Primary Care Provider Active Team Status: Inactive Member Role/Relationship Status Dates Dr. Ezra Arenas MD Primary Care Provider Active Start: September 16, 2024 End: September 16, 2024 Dr. Ezra Arenas MD Other Provider Active Start: September 16, 2024 End: September 16, 2024 Miri HOOD, PA Attending Provider Active Start: September 16, 2024 End: September 16, 2024 Miri HOOD, PA Referring Provider Active Start: September 16, 2024 End: September 16, 2024 Caty Bautista SENIOR CLINICIAN, SENIOR CLINICIAN-C Other Provider Active Sta rt: September 16, 2024 End: September 16, 2024 Dr. Franklin Shah MD Other Provider Active St art: September 16, 2024 End: September 16, 2024 Team Status: Inactive Member Role/Relationship Status Dates Dr. Ezra Arenas MD Primary Care Provider Active Start: October 16, 2024 End: October 21, 2024 Dr. Ezra Arenas MD Other Provider Active Start: October 16, 2024 End: October 21, 2024 Miri HOOD, PA Attending Provider Active Start: October 16, 2024 End: October 21, 2024 Miri HOOD, PA Referring Provider Active Start: October 16, 2024 End: October 21, 2024 Caty Bautista SENIOR CLINICIAN, SENIOR CLINICIAN-C Other Provider Active Sta rt: October 16, 2024 End: October 21, 2024 Dr. Franklin Shah MD Other Provider Active St art: October 16, 2024 End: October 21, 2024 Team Status: Inactive Member Role/Relationship Status Dates Dr. Ezra Arenas MD Primary Care Provider Active Start: November 06, 2024 End: November 06, 2024 Dr. Ezra Arenas MD Other Provider Active Start: November 06, 2024 End: November 06, 2024 Miri M Galdamez PA, PA Attending Provider Active Start: November 06, 2024 End: November 06, 2024 Miri Galdamez PA, PA Referring Provider Active Start: November 06, 2024 End: November 06, 2024 Caty Bautista SENIOR CLINICIAN, SENIOR CLINICIAN-C Other Provider Active Sta rt: November 06, 2024 End: November 06, 2024 Dr. Franklin Shah MD Other Provider Active St art: November 06, 2024 End: November 06, 2024 Team Status: Inactive Member Role/Relationship Status Dates Dr. Ezra Arenas MD Primary Care Provider Active Start: December 02, 2024 End: December 02, 2024 Dr. Ezra Arenas MD Attending Provider Active Start: December 02, 2024 End: December 02, 2024 Dr. Ezra Arenas MD Referring Provider Active Start: December 02, 2024 End: December 02, 2024 Team Status: Inactive Member Role/Relationship Status Dates Dr. Ezra Arenas MD Primary Care Provider Active Start: December 02, 2024 End: December 21, 2024 Miri Galdamez PA, PA Attending Provider Active Start: December 02, 2024 End: December 21, 2024 Miri Galdamez PA, PA Referring Provider Active Start: December 02, 2024 End: December 21, 2024 Team Status: Active Member Role/Relationship Status Dates Dr. Ezra Arenas MD Primary Care Provider Active Start: December 31, 2024 Miri Galdamez PA, PA Attending Provider Active Start: December 31, 2024 Miri Galdamez PA, PA Referring Provider Active Start: December 31, 2024 Team Status: Inactive Member Role/Relationship Status Dates Dr. Ezra Arenas MD Primary Care Provider Active Start: December 31, 2024 End: December 31, 2024 Dr. Ezra Arenas MD Referring Provider Active Start: December 31, 2024 End: December 31, 2024 Miri Galdamez PA, PA Attending Provider Active Start: December 31, 2024 End: December 31, 2024 Team Status: Inactive Member Role/Relationship Status Dates Dr. Ezra Arenas MD Primary Care Provider Active Start: October 16, 2024 End: October 21, 2024 Dr. Ezra Arenas MD Other Provider Active Start: October 16, 2024 End: October 21, 2024 Miri HOOD PA Attending Provider Active Start: October 16, 2024 End: October 21, 2024 Miri Galdamez PA, PA Referring Provider Active Start: October 16, 2024 End: October 21, 2024 Caty Bautista SENIOR CLINICIAN, SENIOR CLINICIAN-C Other Provider Active Sta rt: October 16, 2024 End: October 21, 2024 Dr. Franklin Shah MD Other Provider Active St art: October 16, 2024 End: October 21, 2024 Team Status: Inactive Member Role/Relationship Status Dates Dr. Ezra Arenas MD Primary Care Provider Active Start: November 06, 2024 End: November 06, 2024 Dr. Ezra Arenas MD Other Provider Active Start: November 06, 2024 End: November 06, 2024 Miri HOOD PA Attending Provider Active Start: November 06, 2024 End: November 06, 2024 Miri HOOD, PA Referring Provider Active Start: November 06, 2024 End: November 06, 2024 Caty Bautista SENIOR CLINICIAN, SENIOR CLINICIAN-C Other Provider Active Sta rt: November 06, 2024 End: November 06, 2024 Dr. Franklin Shah MD Other Provider Active St art: November 06, 2024 End: November 06, 2024 Team Status: Inactive Member Role/Relationship Status Dates Dr. Ezra Arenas MD Primary Care Provider Active Start: December 02, 2024 End: December 02, 2024 Dr. Ezra Arenas MD Attending Provider Active Start: December 02, 2024 End: December 02, 2024 Dr. Ezra Arenas MD Referring Provider Active Start: December 02, 2024 End: December 02, 2024 Team Status: Inactive Member Role/Relationship Status Dates Dr. Ezra Arenas MD Primary Care Provider Active Start: December 02, 2024 End: December 21, 2024 Miri Galdamez PA, PA Attending Provider Active Start: December 02, 2024 End: December 21, 2024 Miri Galdamez PA, PA Referring Provider Active Start: December 02, 2024 End: December 21, 2024 Team Status: Active Member Role/Relationship Status Dates Dr. Ezra Arenas MD Primary Care Provider Active Start: December 31, 2024 ERWIN Do Attending Provider Active Start: December 31, 2024 ERWIN Do Referring Provider Active Start: December 31, 2024 Team Status: Inactive Member Role/Relationship Status Dates Dr. Ezra Arenas MD Primary Care Provider Active Start: December 31, 2024 End: December 31, 2024 Dr. Ezra Arenas MD Referring Provider Active Start: December 31, 2024 End: December 31, 2024 ERWIN Do Attending Provider Active Start: December 31, 2024 End: December 31, 2024 Team Status: Inactive Member Role/Relationship Status Dates Dr. Ezra Arenas MD Primary Care Provider Active Start: January 13, 2025 End: January 13, 2025 Dr. Ezra Arenas MD Attending Provider Active Start: January 13, 2025 End: January 13, 2025 Dr. Ezra Arenas MD Referring Provider Active Start: January 13, 2025 End: January 13, 2025 Team Status: Inactive Member Role/Relationship Status Dates Dr. Ezar Arenas MD Primary Care Provider Active Start: December 31, 2024 End: January 21, 2025 ERWIN Do Attending Provider Active Start: December 31, 2024 End: January 21, 2025 ERWIN Do Referring Provider Active Start: December 31, 2024 End: January 21, 2025 FOR RECORDS PERTAINING TO PATIENTS WHO ARE [...] BE BASED ON THE PRIMARY CLINICAL RECORDS. [employer] provides no warranty or guarantee of the accuracy or completeness of information in this document.
[2025-02-20 17:54] VITALS: BP 136/99; PULSE 84; RESP 16; O2SAT 99
[2025-02-20 18:03] LABS: Prothrombin Time (Protime)PT. 31.0 SECONDS (11.7-14.9)
--- NOTE | 2025-02-20 18:06 | EX.ED.DYSGE1 ---
HPI History of Present Illness Chief Complaint: Dizziness Informant: patient Narrative Narrative: Patient is a 40-year-old female with history of mitral valve repair (2010), atrial flutter, patent ductus arteriosus (closed), prior ablation and long-term Coumadin therapy presenting with dizziness. Patient states that she woke up feeling fine this morning. They are planning on having a cookout. Around noon she was trying off the couch and had worsening dizziness. Describes it as a room spinning sensation. It is worse when she looks around and puts her head up and better if she stays still and looks down. Family at the bedside states when she is walking she is wobbling in both directions. She denies any ringing of her ears, numbness, tingling or weakness of the extremities. Denies any headache but states she is starting to develop a mild pressure in her forehead. Denies any recent URI symptoms. Denies any vomiting but notes she is try to get nauseous with the dizziness. Has never had anything like this before. Denies any head traumas or injuries. States her last INR check was 2.8 a month ago and she is due to have it done this coming week. [facility] Medical History Acute bronchitis, unspecified URI (upper respiratory infection) Preventative health care [facility] current use of anticoagulant Atrial flutter History of atrial fibrillation Carpal tunnel syndrome History of kidney stones Palpitations Tachycardia History of scoliosis Patent ductus arteriosus Chronic bronchitis Ankle fracture, left A-fib Bronchitis Home Medications ?Medication ?Instructions ?Recorded ?Last Taken ?Type multivitamin 1 cap PO DAILY 11/26/19 Unknown History biotin 10 mg tablet 10 mg PO DAILY 11/23/22 Unknown History metoprolol tartrate 25 mg tablet 25 mg PO BID #180 tabs 04/01/24 Unknown Rx warfarin 2.5 mg tablet 2.5 mg PO .COMPLEX #60 tabs 04/01/24 Unknown Rx rosuvastatin 5 mg tablet (Crestor) 5 mg PO DAILY #90 tabs 10/05/24 Unknown Rx warfarin 5 mg tablet 5 mg PO DAILY #90 tabs 10/16/24 Unknown Rx azithromycin 500 mg tablet 500 mg PO .COMPLEX PRN 12/31/24 Unknown History (Zithromax) diazepam 5 mg tablet (Valium) 5 mg PO TID PRN vertigo #10 tabs 02/20/25 Unknown Rx Allergy/AdvReac Type Severity Reaction Status Date / Time amoxicillin Allergy Intermediate Rash, Verified 02/20/25 15:58 hives (needs [facility] for premed) Environmental Allergies: Allergy Intermediate NEEDS Verified 02/20/25 15:58 Uncoded FOLLOW-UP hydrocodone (From Vicodin) AdvReac Intermediate nausea Verified 02/20/25 15:58 Family History Father Hypertension Heart disease Hyperlipemia Mother Hypertension Alcoholism Depression Grandmother Cancer Other History of atrial fibrillation Surgical History History of mitral valve repair (~08/01/09) History of radiofrequency ablation procedure for cardiac arrhythmia (~08/12/15) S/P ablation of atrial flutter (09/06/15) History of left heart catheterization (07/27/09) S/P mitral valve repair (08/01/09) History of tonsillectomy Pectus excavatum History of cardioversion (06/15/15) Social History Smoking Status: Never smoker alcohol intake: never substance use type: does not use what type of physical activity do you participate in: walking frequency: daily ROS ROS ED Constitutional Constitutional ED: Denies chills, fever(s) or sweats Eyes Eyes: Denies blurry vision or change in vision ENT ENT ED: Denies rhinorrhea or sore throat Cardiovascular Cardiovascular: Denies chest pain or palpitations Respiratory/Chest Respiratory/Chest: Denies cough or dyspnea Gastrointestinal Gastrointestinal: Reports nausea; Denies abdominal pain or vomiting Musculoskeletal Musculoskeletal: Denies arthralgias or myalgias Integumentary Denies rash Neurologic Neurologic: Reports headache(s) and other Details: vertigo ; Denies paresthesias or weakness Psychiatric Psychiatric: Denies anxiety or depression Hematologic/Lymphatic Hematologic/Lymphatic: Reports easy bleeding, easy bruising and other Details: On Coumadin EXAM Physical Exam Const Vital Signs: 02/20/25 15:54 02/20/25 15:55 02/20/25 17:54 Temperature 98.3 F Temperature Source Oral Pulse Rate 71 84 Respiratory Rate 16 16 Respiratory Effort Normal Non-Labored Respiratory Pattern Normal Blood Pressure 142/117 H 136/99 H Blood Pressure Mean 125 111 Pulse Ox 100 99 Oxygen Delivery Method Room Air 02/20/25 19:00 02/20/25 19:41 Temperature 98.6 F Temperature Source Pulse Rate 71 71 Respiratory Rate 16 16 Respiratory Effort Respiratory Pattern Blood Pressure 128/87 H 128/87 H Blood Pressure Mean 100 100 Pulse Ox 96 96 Oxygen Delivery Method Positive well nourished and well developed Constitutional Narrative: Uncomfortable appearing. Sitting up on the side of the bed with her hands on her head and looking down. General Appearance ED: well developed HEENT Reports TM's clear and moist mucous membranes HEENT Narrative: Normal oropharynx. Normal nasal passages. No nasal congestion present. Normal tympanic membranes bilaterally. No cerumen impaction present. Tympanic Membrane ED: Yes TM's clear Eyes PERRL and EOMs intact bilaterally Eyes Narrative: Bilateral rotary nystagmus with eye movements to the left and right. Does not tolerate further testing at this time (Washington-Hallpike maneuver). Neck supple and no JVD Chest Wall inspection of chest normal and palpation of chest normal Resp normal respiratory effort and clear to auscultation bilaterally Cardio regular rate, regular rhythm and no murmurs GI normal to inspection, nondistended, normoactive bowel sounds and non-tender Extremity normal to inspection General Extremety ED: Negative for edema or tenderness General Extremity: Negative for edema Neuro oriented x3, CN's II-XII intact bilaterally and no sensory deficits noted Neuro Narrative: Normal finger-nose. No truncal ataxia. Normal coordination of the lower extremities. Sensorium / Orientation: alert Motor Exam: strength 5/5 throughout Psych mental status grossly normal Skin no rashes or lesions noted and no wounds MDM MDM MDM Narrative Medical decision making narrative: Patient valuated for worsening vertigo. Because of history of atrial fibrillation however on auscultation and palpation of the pulse she is in normal sinus rhythm. INR is checked as it has been a month and she is therapeutic at 2.9. Initially given Valium for her vertigo. Differential includes peripheral versus central vertigo. Given her otherwise normal neurologic exam, no head trauma and therapeutic INR lower suspicion for spontaneous intracranial hemorrhage causing cerebellar symptoms. Do not think she needs CT imaging of the brain at this time. On repeat evaluation after Valium she is feeling much better. I am able to perform Washington-Hallpike maneuver and she is positive on the left. This is highly consistent with BPPV. Patient be given a prescription for Valium and given referral for ENT for outpatient follow-up. She ambulates with a steady gait in the emergency room. I do not think she requires admission for intractable vertigo at this time. Is given return precautions. Patient and mother agreeable plan of care. Discharged home in stable condition Lab Data Labs: Laboratory Results - last 24 hr 02/20/25 17:46 PT 31.0 H INR 2.9 Discharge Plan Triage Chief Complaint: Dizziness Other Complaint: Syncope ED Provider: Yue Meyer Dx/Rx/DC Orders Clinical Impression: Benign paroxysmal positional vertigo, [employer] current use of anticoagulant Instructions: ED BPV Vertigo Prescriptions: New diazepam [Valium] 5 mg tablet 5 mg PO TID PRN (Reason: vertigo) Qty: 10 0RF No Action multivitamin Capsule 1 cap PO DAILY biotin 10 mg tablet 10 mg PO DAILY azithromycin [Zithromax] 500 mg tablet 500 mg PO .COMPLEX PRN Rx Instructions: 500 mg orally 1 hour prior to dental appt for prophylaxis; PRN; warfarin 2.5 mg tablet 2.5 mg PO .COMPLEX Qty: 60 3RF Protocol: Dose Management Condition: Saturday Dose/Route: 5 mg Instruction: 1 x 5 mg tablet Condition: Saturday Dose/Route: 5 mg Instruction: 1 x 5 mg tablet Condition: Saturday Dose/Route: 5 mg Instruction: 1 x 5 mg tablet Condition: Saturday Dose/Route: 5 mg Instruction: 1 x 5 mg tablet Condition: Dose/Route: 5 mg Instruction: 1 x 5 mg tablet Condition: Saturday Dose/Route: 5 mg Instruction: 1 x 5 mg tablet Condition: Saturday Dose/Route: 5 mg Instruction: 1 x 5 mg tablet Protocol Text: Adjustment Start Date: Saturday01/29/25 INR Value: 3.0 INR Date: 01/29/25 Recheck Date: 02/28/25 Additional Instructions: Voicemail left re: INR results. Instructed to continue warfarin at 5mg daily and repeat INR in one month. Rx Instructions: Take 5mg daily (with extra 2.5 mg on Sun/Sat//Sat/Sat to equal 7.5mg); or use as directed metoprolol tartrate 25 mg tablet 25 mg PO BID Qty: 180 4RF rosuvastatin [Crestor] 5 mg tablet 5 mg PO DAILY Qty: 90 3RF warfarin 5 mg tablet 5 mg PO DAILY Qty: 90 3RF Protocol: Dose Management Condition: Saturday Dose/Route: 5 mg Instruction: 1 x 5 mg tablet Condition: Saturday Dose/Route: 5 mg Instruction: 1 x 5 mg tablet Condition: Saturday Dose/Route: 5 mg Instruction: 1 x 5 mg tablet Condition: Saturday Dose/Route: 5 mg Instruction: 1 x 5 mg tablet Condition: Dose/Route: 5 mg Instruction: 1 x 5 mg tablet Condition: Saturday Dose/Route: 5 mg Instruction: 1 x 5 mg tablet Condition: Saturday Dose/Route: 5 mg Instruction: 1 x 5 mg tablet Protocol Text: Adjustment Start Date: Saturday01/29/25 INR Value: 3.0 INR Date: 01/29/25 Recheck Date: 02/28/25 Additional Instructions: Voicemail left re: INR results. Instructed to continue warfarin at 5mg daily and repeat INR in one month. Rx Instructions: Take 5mg daily; or use as directed Primary Care Provider: Ezra Arenas Referrals: Abiodun Lopez MD [Med Staff - Active Staff] - Ezra Arenas MD [Primary Care Provider] - Activity Restrictions/Additional Instructions: You may break the Valium (diazepam) tablet in half if you find it too sedating. You may also take [id number] meclizine 1 to 2 tablets every 6 hours as needed for vertigo. Your INR today was 2.9. If you have worsening symptoms, severe headache, acute vision changes or new numbness/weakness of the extremities or loss of coordination please return to the emergency room. Print Language: Chinese Disposition Disposition: Home, Self Care Discharge Date/Time: 02/20/25 19:43
[2025-02-20 19:00] VITALS: BP 128/87; PULSE 71; RESP 16; O2SAT 96
[2025-02-20 19:41] VITALS: BP 128/87; PULSE 71; RESP 16; TEMP 37; O2SAT 96
== END 2025-02-20 19:43 | disposition home or self-care (01) ==
PROVIDERS: Emergency Provider Emergency Medicine; PCP Internal Medicine; Visit Provider Emergency Medicine
DX: H81.10 Benign paroxysmal vertigo, unspecified ear (principal); I48.91 Unspecified atrial fibrillation; Z79.01 Long term (current) use of anticoagulants
CPT/HCPCS: 85610; 99283; A4216

== ENCOUNTER → 2025-02-26 | Outpatient (CLI) | payer OTHER, SELFPAY ==
[2025-02-26 11:34] LABS: AST(SGOT) 41 U/L (<=31); Alanine Aminotransfer ALT/SGPT 33 U/L (<=34); Albumin, Serum 4.2 g/dL (3.5-5.0); Alkaline Phosphatase 73 U/L (35-104); Bilirubin, Direct 0.22 mg/dL (0.00-0.30); Cholesterol 150 mg/dL (<=200); Globulin 2.7 g/dL (2.2-4.2); Low Density Lipoprotein Calc. 73 mg/dL; Triglycerides 147 mg/dL; Very Low Density Lipoprotein 29 mg/dL (5-40); cholesterol:hdl ratio screen 3.12
== END | disposition home or self-care (01) ==
LOC: LAB 10:04
PROVIDERS: PCP Internal Medicine; Referring Provider Nurse Practitioner Family; Visit Provider Nurse Practitioner Family
DX: E78.00 Pure hypercholesterolemia, unspecified (principal)
CPT/HCPCS: 36415; 80061; 80076

== ENCOUNTER 2025-03-26 11:44 | Outpatient (RCR) | payer OTHER, SELFPAY ==
[2025-03-26 12:49] LABS: Prothrombin Time (Protime)PT. 27.5 SECONDS (11.7-14.9)
== END 2025-03-26 18:00 | disposition home or self-care (01) ==
LOC: LAB 11:44
PROVIDERS: PCP Internal Medicine; Referring Provider Physician Assistant Medical; Visit Provider Physician Assistant Medical
DX: Z86.79 Personal history of other diseases of the circulatory system (principal); Z79.01 Long term (current) use of anticoagulants
CPT/HCPCS: 36415; 85610

== ENCOUNTER 2025-04-30 11:00 | Outpatient (RCR) | payer OTHER, SELFPAY ==
[2025-04-30 11:33] LABS: Prothrombin Time (Protime)PT. 27.4 SECONDS (11.7-14.9)
== END 2025-05-22 18:00 | disposition home or self-care (01) ==
LOC: LAB 11:00
PROVIDERS: PCP Internal Medicine; Referring Provider Physician Assistant Medical; Visit Provider Physician Assistant Medical
DX: Z86.79 Personal history of other diseases of the circulatory system (principal); Z79.01 Long term (current) use of anticoagulants
CPT/HCPCS: 36415; 85610

== ENCOUNTER 2025-05-28 09:27 | Outpatient (RCR) | payer OTHER, SELFPAY ==
[2025-05-28 10:10] LABS: Prothrombin Time (Protime)PT. 28.8 SECONDS (11.7-14.9)
== END 2025-05-28 18:00 | disposition home or self-care (01) ==
LOC: LAB 09:27
PROVIDERS: PCP Internal Medicine; Referring Provider Physician Assistant Medical; Visit Provider Physician Assistant Medical
DX: Z86.79 Personal history of other diseases of the circulatory system (principal); Z79.01 Long term (current) use of anticoagulants; I48.92 Unspecified atrial flutter; Z98.890 Other specified postprocedural states
CPT/HCPCS: 36415; 85610